=== PATIENT | male | born 1950 | race Caucasian/White ===

== ENCOUNTER 2016-06-21 14:49 | Emergency (ER) | payer MEDICARE ==
[~2016-06-21] VITALS: Ht 175.3 cm; Wt 72.6 kg
[~2016-06-21 14:49] MED LIST: AUGMENTIN TAB875 MG ORAL; BENADRYL25 MG ORAL; CLINDAMYCIN HC150 MG ORAL; CLINDAMYCIN HC300 MG ORAL; CYCLOBENZAPRINE10 MG ORAL; FLOMAX0.4 MG ORAL; IBUPROFEN600 MG ORAL; NKM; NORCO 10-325 T1 EACH ORAL; NORCO 5-325 TA1 EAC1 ORAL; NORCO 5-325 TA1 EAC1 PO; NORCO 5-325 TA1 EACH ORAL; NORCO 5-325 TA1 EACH PO; PERMETHRIN60 GM TOPIC; PREDNISONE50 MG ORAL; TRAMADOL HCL50 MG ORAL; TRAMADOL HCL50 MG PO; ULTRAM50 MG PO; VICODIN 5-5001 EACH PO; ZANTAC150 MG ORAL; ZOFRAN ODT4 MG ORAL; ZOFRAN4 M1 ORAL
[2016-06-21] MEDS ORDERED: Morphine Sulfate 4mg/ml Inj IVP ONE (15:15)
[2016-06-21 15:52] VITALS: BP 119/77
[2016-06-21 15:54] LABS: BASOPHILS % (AUTO) 1.6 % (0.0-2.0); EOSINOPHILS % (AUTO) 1.1 % (0.0-3.0); LYMPHOCYTES % (AUTO) 26.3 % (20.0-45.0); MEAN CORPUSCULAR HEMOGLOBIN 33.2 PG (27.0-31.0); MEAN CORPUSCULAR HGB CONC 34.4 G/DL (32.0-36.0); MEAN CORPUSCULAR VOLUME 96 FL (80-99); MEAN PLATELET VOLUME 6.7 FL (6.5-10.1); MONOCYTES % (AUTO) 5.2 % (1.0-10.0); NEUTROPHILS % (AUTO) 65.7 % (45.0-75.0); PLATELET COUNT 223 K/UL (150-450); RED BLOOD COUNT 4.48 M/UL (4.70-6.10); RED CELL DISTRIBUTION WIDTH 11.3 % (11.6-14.8); WHITE BLOOD COUNT 6.1 K/UL (4.8-10.8)
--- NOTE | 2016-06-21 16:02 | Diagnostic Imaging Report ---
Indication: Abdominal pain Technique: Continuous helical transaxial imaging of the abdomen and pelvis was obtained from the lung bases to the pubic symphysis. No intravenous contrast was administered. Coronal 2-D reformats were also obtained. Total Dose length Product (DLP): [address] Dose Index Volume (CTDIvol): 11 mGy Comparison: 09/03/14 Findings: The lung bases are clear. Solid organ evaluation is limited on this study done without contrast material. There are multiple stones within both kidneys without hydronephrosis. Interval enlargement of a left renal cyst that is partially calcified noted and currently measuring 2.2 x 2.8 cm. There is also a 2 cm slightly hypodense mass in nature part of the left kidney. This appears slightly larger than it had appeared on the prior study. The prior study on 09/03/14 was followed up by a contrast-enhanced CT 01/13/15 which probably shows this to represent a cyst. The study also reveals multiple cysts within the left kidney in addition. Arterial vascular consultations are present. Diverticula noted in the colon. No definite diverticulitis. Prostate enlargement noted. Bilateral inguinal hernias are present. The right inguinal hernia again noted to contain part of the appendix which appears normal. No evidence of bowel obstruction, free air or ascites. There is narrowing of intervertebral discs and accompanying endplate osteophyte formation. Hypertrophied facet joints also demonstrated. Impression: No significant change compared to the previous study performed 09/03/14 Multiple bilateral nonobstructive renal calculi. Slight interval larger and of a cystic mass in the left kidney measuring 2.8 x 2.2 cm currently. Interval enlargement of cystic versus solid mass in the left kidney currently measuring 2.0 cm in diameter. (Further workup with contrast CT had been subsequently performed 01/13/15 and this was determined to be cystic). Spondylosis Normal appendix Bilateral inguinal hernias containing fat Prostate hypertrophy Diverticulosis of the colon Atherosclerotic vascular disease The CT scanner at [facility] is accredited by the [employer] and the scans are performed using protocols designed to limit radiation exposure to as low as reasonably achievable to attain images of sufficient resolution adequate for diagnostic evaluation.
[2016-06-21 16:14] LABS: APPEARANCE,URINE CLEAR; KETONES,URINE NEGATIVE (NEGATIVE); LEUKOCYTE ESTERASE ,URINE NEGATIVE (NEGATIVE); NITRITE,URINE NEGATIVE (NEGATIVE); PH,URINE 7 (4.5-8.0); PROTEIN,URINE NEGATIVE (NEGATIVE); UROBILINOGEN,URINE NORMAL MG/DL (0.0-1.0)
[2016-06-21 16:25] LABS: AMORPHOUS SEDIMENT,UR FEW /LPF; BACTERIA,URINE FEW /HPF
[2016-06-21 16:27] LABS: ALANINE AMINOTRANSFERASE 10 U/L (3-41); ALBUMIN/GLOBULIN RATIO 1.7 (1.0-2.7); ANION GAP 14 (5-15); ASPARTATE AMINO TRANSFERASE 21 U/L (5-40); CALCIUM 9.5 mg/dL (8.6-10.2); CARBON DIOXIDE 26 mEQ/L (20-30); CHLORIDE 98 mEQ/L (98-107); CREATININE 1.1 mg/dL (0.7-1.2); GLOMERULAR FILTRATION RATE > 60 mL/min (>60); HEMOLYSIS 5; POTASSIUM 4.1 mEQ/L (3.4-4.9); SODIUM 138 mEQ/L (135-145); TOTAL PROTEIN 7.3 g/dL (6.6-8.7)
--- NOTE | 2016-06-21 17:04 | Emergency Room Report ---
History of Present Illness General Chief Complaint: Pain Source: Patient, Medical Record Present Illness HPI This patient presents with left-sided flank pain radiating to his left groin. He states that the symptoms feel very similar to a previous kidney stone and that he passed last month. He denies nausea or vomiting. He denies fever or chills. He has no other complaints. Allergies: Coded Allergies: KETOROLAC TROMETHAMINE (Verified Allergy, Mild, Hives, 06/08/16) ERYTHROMYCIN BASE (Verified Adverse Reaction, Mild, NAUSEA VOMITING, 06/08) Patient History Past Medical History: GERD Social History: Denies: alcohol use, drug use, smoking Reviewed Nursing Documentation: PMH: Agreed, PSxH: Agreed Nursing Documentation-PMH Past Medical History: No History, Except For Hx Cardiac Problems: No Hx Hypertension: No Hx Pacemaker: No Hx Asthma: No Hx COPD: No Hx Diabetes: No Hx Cancer: No Hx Gastrointestinal Problems: Yes - Kidney Stones, Gastric ulcers Hx Dialysis: No Hx Neurological Problems: No - Spinal stenosis Hx Cerebrovascular Accident: No Hx Seizures: No Review of Systems All Other Systems: negative except mentioned in HPI Physical Exam Vital Signs Date Time Temp Pulse Resp B/P Pulse Ox O2 Delivery O2 Flow Rate FiO2 06/21/16 14:58 97.5 94 16 157/83 100 Room Air Sp02 EP Interpretation: reviewed, normal General Appearance: no apparent distress, alert, GCS 15, non-toxic Head: normocephalic, atraumatic Eyes: bilateral eye PERRL, bilateral eye normal inspection ENT: hearing grossly normal, normal pharynx, no angioedema, normal voice Neck: full range of motion, supple/symm/no masses Respiratory: chest non-tender, lungs clear, normal breath sounds, speaking full sentences Cardiovascular #1: regular rate, rhythm, no edema Gastrointestinal: normal bowel sounds, non tender, soft, non-distended, no guarding, no rebound Rectal: deferred Musculoskeletal: back normal, gait/station normal, normal range of motion, non- tender Neurologic: alert, oriented x3, responsive, motor strength/tone normal, sensory intact, speech normal Psychiatric: judgement/insight normal, memory normal, mood/affect normal, no suicidal/homicidal ideation Skin: normal color, no rash, warm/dry, well hydrated Medical Decision Making Diagnostic Impression: Primary Impression: Flank pain ER Course This patient has a clinical presentation consistent with musculo-skeletal pain. I did go ahead and work up this patient for urolithiasis. He underwent CT abdomen and pelvis and a urinalysis. Both were negative for acute findings. See official report. Laboratory workup was negative to include CBC and CMP. At this time, I did not identify an emergency medical condition. The patient was instructed on supportive home measures. The patient was given return precautions and followup instructions. Labs Test 06/21/16 15:06 06/21/16 15:30 Urine Color Pale yellow Urine Appearance Clear Urine pH 7 (4.5-8.0) Urine Specific [place]den 1.005 (1.005-1.035) Urine Protein Negative (NEGATIVE) Urine Glucose (UA) Negative (NEGATIVE) Urine Ketones Negative (NEGATIVE) Urine Occult Blood 5+ (NEGATIVE) Urine Nitrite Negative (NEGATIVE) Urine Bilirubin Negative (NEGATIVE) Urine Urobilinogen Normal MG/DL (0.0-1.0) Urine Leukocyte Esterase Negative (NEGATIVE) Urine RBC 2-4 /HPF (0 - 0) Urine WBC 5-10 /HPF (0 - 0) Urine Squamous Epithelial Cells None /LPF (NONE/OCC) Urine Amorphous Sediment Few /LPF (NONE) Urine Bacteria Few /HPF (NONE) White Blood Count 6.1 K/UL (4.8-10.8) Red Blood Count 4.48 M/UL (4.70-6.10) Hemoglobin 14.9 G/DL (14.2-18.0) Hematocrit 43.2 % (42.0-52.0) Mean Corpuscular Volume 96 FL (80-99) Mean Corpuscular Hemoglobin 33.2 PG (27.0-31.0) Mean Corpuscular Hemoglobin Concent 34.4 G/DL (32.0-36.0) Red Cell Distribution Width 11.3 % (11.6-14.8) Platelet Count 223 K/UL (150-450) Mean Platelet Volume 6.7 FL (6.5-10.1) Neutrophils (%) (Auto) 65.7 % (45.0-75.0) Lymphocytes (%) (Auto) 26.3 % (20.0-45.0) Monocytes (%) (Auto) 5.2 % (1.0-10.0) Eosinophils (%) (Auto) 1.1 % (0.0-3.0) Basophils (%) (Auto) 1.6 % (0.0-2.0) Sodium Level 138 mEQ/L (135-145) Potassium Level 4.1 mEQ/L (3.4-4.9) Chloride Level 98 mEQ/L (98-107) Carbon Dioxide Level 26 mEQ/L (20-30) Anion Gap 14 (5-15) Blood Urea Nitrogen 14 mg/dL (7-23) Creatinine 1.1 mg/dL (0.7-1.2) Estimat Glomerular Filtration Rate > 60 mL/min (>60) Glucose Level 143 mg/dL (74-106) Calcium Level 9.5 mg/dL (8.6-10.2) Total Bilirubin 1.0 mg/dL (0.0-1.2) Aspartate Amino Transf (AST/SGOT) 21 U/L (5-40) Alanine Aminotransferase (ALT/SGPT) 10 U/L (3-41) Alkaline Phosphatase 78 U/L (40-129) Total Protein 7.3 g/dL (6.6-8.7) Albumin 4.6 g/dL (3.5-5.2) Globulin 2.7 g/dL Albumin/Globulin Ratio 1.7 (1.0-2.7) CT/MRI/US Diagnostic Results CT/MRI/US Diagnostic Results : Imaging Test Ordered: CT abd/pelvis Impression No significant change compared to the previous study performed 09/03/14 Multiple bilateral nonobstructive renal calculi. Slight interval larger and of a cystic mass in the left kidney measuring 2.8 x 2.2 cm currently. Interval enlargement of cystic versus solid mass in the left kidney currently measuring 2.0 cm in diameter. (Further workup with contrast CT had been subsequently performed 01/13/15 and this was determined to be cystic). Spondylosis Normal appendix Bilateral inguinal hernias containing fat Prostate hypertrophy Diverticulosis of the colon Atherosclerotic vascular disease Last Vital Signs Date Time Temp Pulse Resp B/P Pulse Ox O2 Delivery O2 Flow Rate FiO2 06/21/16 15:52 98.0 80 16 119/77 100 Room Air Disposition: HOME, SELF-CARE Condition: Improved Referrals: NOT CHOSEN [facility]/MD,REFERRING (PCP) Patient Instructions: PAIN, Uncertain Cause (Acute) ALEJANDRO MORALEZ D.O. Jun 21, 2016 17:04
[2016-06-21] MEDS ORDERED: TRAMADOL HCL50 MG ORAL (17:05)
[2016-06-21 17:17] VITALS: BP 122/62
== END 2016-06-21 17:17 | disposition home or self-care (01) ==
LOC: EMR 15:27
DX: N20.0 Calculus of kidney (principal); K40.20 Bilateral inguinal hernia, without obstruction or gangrene, not specified as recurrent; M47.9 Spondylosis, unspecified; N40.0 Benign prostatic hyperplasia without lower urinary tract symptoms; K57.90 Diverticulosis of intestine, part unspecified, without perforation or abscess without bleeding; K21.9 Gastro-esophageal reflux disease without esophagitis; Z87.442 Personal history of urinary calculi; Z87.11 Personal history of peptic ulcer disease; Z88.6 Allergy status to analgesic agent; Z88.1 Allergy status to other antibiotic agents
CPT/HCPCS: 36415; 74176; 80053; 81003; 85025; 96361; 96374; 96375; 99284; J2270; J2405

== ENCOUNTER 2016-07-30 12:27 | Emergency (ER) | payer MEDICARE ==
[~2016-07-30] VITALS: Ht 175.3 cm; Wt 72.6 kg
[2016-07-30 12:45] VITALS: BP 143/92
[2016-07-30] MEDS ORDERED: ATORVASTATIN CA10 MG ORAL (12:46)
[2016-07-30] MEDS ORDERED: TYLENOL EXTRA500 MG ORAL (13:21)
[2016-07-30] MEDS ORDERED: TRAMADOL HCL50 MG ORAL (13:26)
[2016-07-30 13:48] VITALS: BP 130/70
--- NOTE | 2016-07-30 14:21 | Emergency Room Report ---
History of Present Illness General Chief Complaint: Upper Extremity Injury Source: Patient Present Illness HPI The patient is a 66-year-old male presenting with left shoulder pain which occurred 5 days prior. Patient states that he was ice-skating and fell onto the shoulder. he states the pain is now 9/10 dull ache it does not radiate from the shoulder. Pain worse with shoulder movement and touch. The patient denies any numbness or tingling and denies prior injury to the shoulder. The patient denies any other symptoms including fever, chills, rash Allergies: Coded Allergies: KETOROLAC TROMETHAMINE (Verified Allergy, Mild, Hives, 06/08/16) ERYTHROMYCIN BASE (Verified Adverse Reaction, Mild, NAUSEA VOMITING, 06/08) Patient History Past Medical History: see triage record Pertinent Family History: none Reviewed Nursing Documentation: PMH: Agreed, PSxH: Agreed Nursing Documentation-PMH Hx Cardiac Problems: No Hx Hypertension: No Hx Pacemaker: No Hx Asthma: No Hx COPD: No Hx Diabetes: No Hx Cancer: No Hx Gastrointestinal Problems: Yes - Kidney Stones, Gastric ulcers Hx Dialysis: No Hx Cerebrovascular Accident: No Hx Seizures: No Review of Systems All Other Systems: negative except mentioned in HPI Physical Exam Vital Signs Date Time Temp Pulse Resp B/P Pulse Ox O2 Delivery O2 Flow Rate FiO2 07/30/16 12:37 97.9 94 16 143/92 100 Room Air Sp02 EP Interpretation: reviewed, normal General Appearance: no apparent distress, alert, GCS 15, non-toxic Head: normocephalic, atraumatic Eyes: bilateral eye PERRL, bilateral eye normal inspection ENT: hearing grossly normal, normal pharynx, no angioedema, normal voice Neck: full range of motion, supple/symm/no masses Musculoskeletal: back normal, gait/station normal, decreased range of motion - decreased AROM of L shoulder, tender - TTP over L lateral shoulder Neurologic: alert, oriented x3, responsive, motor strength/tone normal, sensory intact, speech normal Psychiatric: judgement/insight normal, memory normal, mood/affect normal, no suicidal/homicidal ideation Skin: normal color, no rash, warm/dry, well hydrated, other - echymosis of L lateral shoulder Lymphatic: no adenopathy Procedures Splinting Splinting : Consent: Verbal Location: L shoulder Splint: sling Pre-Proc Neuro Vasc Exam: normal Post-Proc Neuro Vasc Exam: normal Patient Tolerated: Well Complications: None Medical Decision Making PA Attestation Dr. Colin is my supervising physician. Patient management was discussed with my supervising physician Diagnostic Impression: Primary Impression: Contusion of shoulder, left ER Course The patient is a 66-year-old male presenting with left shoulder pain which occurred 5 days prior Ddx considered include but not limited to sprain/strain, fracture, contusion, dislocation, ligament injury PE: vitals WNL.NAD L shoulder: Tenderness to palpation over left lateral deltoid. Overlying ecchymosis. No obvious deformity. SILT. Decreased AROM past 30 degrees of adduction and flexion. No TTP over clavicle. X-ray of the left shoulder unremarkable Patient is placed in a left arm sling This is given Tylenol for pain The patient is discharged home and will follow up with primary care physician. Pt advised he will need MRI if symptoms worsen or persist. ER precautions are given Other X-Ray Diagnostic Results Other X-Ray Diagnostic Results : X-Ray Ordered: L shoulder Date: Jul 30, 2016 Findings: no fractures, no dislocation, no soft tissue swelling Number of Views: 3 PA Scribe Text I am acting as scribe for my supervising physician. My supervising physician's interpretation of the L shoulder xrays are there are no fractures, dislocations or soft tissue swelling. Last Vital Signs Date Time Temp Pulse Resp B/P Pulse Ox O2 Delivery O2 Flow Rate FiO2 07/30/16 13:48 68 16 130/70 98 Room Air 07/30/16 12:45 97.9 Status: improved Disposition: HOME, SELF-CARE Condition: Improved Scripts Tramadol Hcl* (ULTRAM*) 50 Mg Tablet 50 MG ORAL Q6H Y for For Pain, #10 TAB 0 Refills Prov: TERZIAN,HUANG P.A. 07/30/16 Acetaminophen* (TYLENOL EXTRA STRENGTH*) 500 Mg Tablet 500 MG ORAL Q8H Y for Prn Headache/Temp > 101, #30 TAB 0 Refills Prov: TERZIAN,HUANG P.A. 07/30/16 Patient Instructions: Shoulder Pain Additional Instructions: I discussed my findings with the patient. All questions and concerns have been answered. Treatment and medication compliance have been addressed. I advised the patient that they need to follow up with PMD in 3-5 days. Return to ED if pain remains or worsens, numbness or tingling occurs, new rash is noticed, fever is noticed, or if needed for any reason. Patient verbalized understanding of discharge instructions. HUANG BOLAND Jul 30, 2016 14:21
--- NOTE | 2016-08-02 10:49 | Diagnostic Imaging Report ---
Indication: PAIN Technique: 3 views of the left shoulder Comparison: none Findings: The bones are osteoporotic. No acute fractures. No dislocations. Joint spaces are preserved Impression:Osteoporotic change. No acute process
== END 2016-07-30 13:53 | disposition home or self-care (01) ==
LOC: EMR 12:54
DX: S40.012A Contusion of left shoulder, initial encounter (principal); W19.XXXA Unspecified fall, initial encounter; Y93.21 Activity, ice skating; Y92.89 Other specified places as the place of occurrence of the external cause; M81.0 Age-related osteoporosis without current pathological fracture
CPT/HCPCS: 29240; 99284

== ENCOUNTER 2016-09-02 14:43 | Emergency (ER) | payer MEDICARE ==
[~2016-09-02] VITALS: Ht 175.3 cm; Wt 72.6 kg
[~2016-09-02 14:43] MED LIST changes: +ATORVASTATIN CA10 MG ORAL; +TYLENOL EXTRA500 MG ORAL
[2016-09-02 15:57] LABS: BASOPHILS % (AUTO) 1.3 % (0.0-2.0); LYMPHOCYTES % (AUTO) 14.5 % (20.0-45.0); MEAN CORPUSCULAR HEMOGLOBIN 32.2 PG (27.0-31.0); MEAN CORPUSCULAR HGB CONC 33.9 G/DL (32.0-36.0); MEAN CORPUSCULAR VOLUME 95 FL (80-99); MEAN PLATELET VOLUME 6.7 FL (6.5-10.1); MONOCYTES % (AUTO) 6.1 % (1.0-10.0); NEUTROPHILS % (AUTO) 77.1 % (45.0-75.0); PLATELET COUNT 222 K/UL (150-450); RED BLOOD COUNT 4.91 M/UL (4.70-6.10); WHITE BLOOD COUNT 10.3 K/UL (4.8-10.8)
[2016-09-02 16:19] LABS: ALANINE AMINOTRANSFERASE 17 U/L (3-41); ALBUMIN/GLOBULIN RATIO 1.5 (1.0-2.7); ANION GAP 15 (5-15); ASPARTATE AMINO TRANSFERASE 27 U/L (5-40); CALCIUM 9.7 mg/dL (8.6-10.2); CARBON DIOXIDE 27 mEQ/L (20-30); CHLORIDE 99 mEQ/L (98-107); CREATININE 1.2 mg/dL (0.7-1.2); GLOMERULAR FILTRATION RATE > 60 mL/min (>60); HEMOLYSIS 3; POTASSIUM 4.3 mEQ/L (3.4-4.9); SODIUM 141 mEQ/L (135-145); TOTAL PROTEIN 7.3 g/dL (6.6-8.7)
--- NOTE | 2016-09-02 16:33 | Diagnostic Imaging Report ---
Indication: TB screen Comparison: None A single view chest radiograph was obtained. Findings: Cardiomediastinal appearance is within normal limits for age. Pulmonary vascularity is appropriate. Aorta is mildly calcified. The diaphragmatic contour is smooth and costophrenic angles are sharp. No pleural effusions are identified. The bones are osteopenic. Impression: No pleural or parenchymal evidence for tuberculosis. Osteopenia Atherosclerotic vascular disease
[2016-09-02 16:55] LABS: BILIRUBIN,DIRECT 0.1 mg/dL (0.1-0.3)
[2016-09-02 16:57] VITALS: BP 129/77
--- NOTE | 2016-09-02 17:38 | Emergency Room Report ---
History of Present Illness General Chief Complaint: General Complaint Source: Patient, Medical Record Present Illness HPI 66 YOM came to ED for positive PPD test - 15mm - never had TB before. Denies sick contacts, fever/chills, night sweats, weight loss, foreign travel, history of HIV. No complaints. 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 This year was first positive test. Allergies: Coded Allergies: KETOROLAC TROMETHAMINE (Verified Allergy, Mild, Hives, 06/08/16) ERYTHROMYCIN BASE (Verified Adverse Reaction, Mild, NAUSEA VOMITING, 06/08) Patient History Past Medical History: none Past Surgical History: none Pertinent Family History: none Social History: Denies: alcohol use, drug use, smoking Immunizations: UTD Reviewed Nursing Documentation: PMH: Agreed, PSxH: Agreed Nursing Documentation-PMH Hx Cardiac Problems: No Hx Hypertension: No Hx Pacemaker: No Hx Asthma: No Hx COPD: No Hx Diabetes: No Hx Cancer: No Hx Gastrointestinal Problems: Yes - Kidney Stones, Gastric ulcers Hx Dialysis: No Hx Cerebrovascular Accident: No Hx Seizures: No Review of Systems All Other Systems: negative except mentioned in HPI Physical Exam Vital Signs Date Time Temp Pulse Resp B/P Pulse Ox O2 Delivery O2 Flow Rate FiO2 09/02/16 15:11 98.2 93 16 137/82 98 Room Air Sp02 EP Interpretation: reviewed, normal General Appearance: normal inspection, well appearing, no apparent distress, alert, GCS 15, non-toxic Head: normocephalic, atraumatic Eyes: bilateral eye EOMI, bilateral eye PERRL ENT: normal ENT inspection, hearing grossly normal, normal voice Neck: normal inspection, full range of motion, supple, no bony tend Respiratory: normal inspection, lungs clear, normal breath sounds, no respiratory distress, no retraction, no wheezing Cardiovascular #1: regular rate, rhythm, no edema Gastrointestinal: normal inspection, normal bowel sounds, non tender, soft, no guarding, no hernia Genitourinary: no CVA tenderness Musculoskeletal: normal inspection, back normal, normal range of motion, Tj' s Sign negative Neurologic: normal inspection, alert, oriented x3, 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 Afebrile Lungs CTAB No B signs CXR negative for abscess, consolidation CT Chest negative for mass, consolidation, cavitary lesion ?Latent TB Endorsed to Dr Barros for med surg admission in isolation at 538pm Chest X-Ray Diagnostic Results EP Interpretation: Yes Findings: no consolidation, no effusion, no pneumothorax, no acute cardiopulmonary disease Number of Views: 1 Reevaluation Time: 18:34 Last Vital Signs Date Time Temp Pulse Resp B/P Pulse Ox O2 Delivery O2 Flow Rate FiO2 09/02/16 16:57 97.6 71 16 129/77 98 Room Air Status: improved Reevaluation Impression Labs: No leuks CXR negative CT Chest negative for PNA, cavitary lesion, TB Spoke with Dr Barros Recommends DC with followup in his office to discuss tx for latent TB Patient advised not to work until cleared by PMD Disposition: HOME, SELF-CARE Condition: Improved Referrals: NOT CHOSEN [facility]/,REFERRING (PCP) NHUNG BOYD M.D. Sep 02, 2016 17:38
[2016-09-02 18:52] VITALS: BP 154/88
--- NOTE | 2016-09-03 08:30 | Diagnostic Imaging Report ---
Clinical Indication: TB SCREEN, cough Technique: IV administration nonionic contrast. Spiral acquisition obtained through the chest. Multiplanar reconstructions generated. Total dose length product 614 mGycm. CTDIvol(s) 50 mGy Comparison: None Findings: Some linear scarring is seen at the right lung base. This is evident on earlier CTs of the abdomen and pelvis as well Lungs and pleural spaces otherwise clear. No infiltrates, effusions, masses, or congestion , or nodules The heart size is normal. There is minimal anterior wall pericardial thickening versus fluid. No mediastinal or hilar mass or adenopathy. The included portions of the thyroid are unremarkable. No axillary or chest supraclavicular or chest wall mass or adenopathy. The bones are unremarkable except for mild thoracolumbar scoliotic deformity. The included upper abdominal viscera demonstrate bilateral renal calculi and at least 2 left renal cysts. A subcentimeter low-attenuation lesion is seen within segment 7 of the liver, too small to characterize Impression: No acute process Minimal right basilar parenchymal scarring Minimal anterior wall pericardial thickening versus fluid Mild scoliosis Incidental finding low-attenuation lesion segment 7 of the liver, too small to characterize, most likely benign simple cyst or bile hamartomas, also demonstrated on prior study of January 2015 and unchanged. No further followup needed Incidental findings of bilateral renal calculi and left renal cysts, also described on previous abdomen pelvis CT studies This agrees with the preliminary interpretation provided overnight by Dr. Brewer The CT scanner at [facility] is accredited by the [employer] and the scans are performed using protocols designed to limit radiation exposure to as low as reasonably achievable to attain images of sufficient resolution adequate for diagnostic evaluation.
== END 2016-09-02 18:54 | disposition home or self-care (01) ==
LOC: ENRESERVTM → ENRESERVDT → EMR 15:48 → EDBEDREQ 16:11 → CANBEDREQ 18:36 → EMR 18:54
DX: R76.11 Nonspecific reaction to tuberculin skin test without active tuberculosis (principal); Z87.442 Personal history of urinary calculi; Z87.19 Personal history of other diseases of the digestive system
CPT/HCPCS: 36415; 71010; 71260; 80053; 82248; 85025; 99284; Q9967

== ENCOUNTER 2016-09-15 20:36 | Emergency (ER) | payer MEDICARE ==
[~2016-09-15] VITALS: Ht 175.3 cm; Wt 72.6 kg
[2016-09-15] MEDS ORDERED: ATORVASTATIN CA10 MG ORAL (20:54)
[2016-09-15] MEDS ORDERED: ALUMINUM H320 MG/5 M PO (21:28)
--- NOTE | 2016-09-15 21:31 | Emergency Room Report ---
History of Present Illness General Chief Complaint: Pain Source: Patient, Medical Record Present Illness HPI Patient is a 66-year-old male who presented after having increased left-sided abdominal pain. Patient gradual onset of symptoms. Patient had previous history of inguinal hernia which he says was popping out while he was race walking earlier in the morning. The patient any vomiting. He denied diarrhea. He denies severe pain. Patient denied any black or bloody stools. He denied any fever. The patient states he's had a previous CT approximately 2 weeks ago. Allergies: Coded Allergies: KETOROLAC TROMETHAMINE (Verified Allergy, Mild, Hives, 06/08/16) ERYTHROMYCIN BASE (Verified Adverse Reaction, Mild, NAUSEA VOMITING, 06/08) Patient History Past Medical History: see triage record Reviewed Nursing Documentation: PMH: Agreed, PSxH: Agreed Nursing Documentation-PMH Hx Cardiac Problems: No Hx Hypertension: No Hx Pacemaker: No Hx Asthma: No Hx COPD: No Hx Diabetes: No Hx Cancer: No Hx Gastrointestinal Problems: Yes - Kidney Stones, Gastric ulcers Hx Dialysis: No Hx Cerebrovascular Accident: No - Hernia surgery in 2013 on right side Hx Seizures: No Review of Systems All Other Systems: negative except mentioned in HPI Physical Exam Vital Signs Date Time Temp Pulse Resp B/P Pulse Ox O2 Delivery O2 Flow Rate FiO2 09/15/16 20:51 98.2 117 14 118/85 99 Room Air General Appearance: well appearing, no apparent distress, alert, GCS 15 Head: normocephalic, atraumatic ENT: hearing grossly normal, normal voice Neck: full range of motion, supple Respiratory: no respiratory distress, speaking full sentences Cardiovascular #1: normal inspection, normal peripheral pulses Gastrointestinal: normal inspection, non tender, soft, no mass, hernia - easily reducible Musculoskeletal: normal inspection, back normal, digits/nails normal, gait/ station normal, normal range of motion, no calf tenderness Neurologic: normal inspection, alert, oriented x3, responsive, 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 Differential diagnoses included ischemic bowel, appendicitis, perforated viscus, abdominal aortic aneurysm, inferior myocardial infarction, viral gastroenteritis. The patient has a benign exam. A left inguinal hernia was easily reducible.The patient is advised to follow up with primary care doctor in 1-2 days. Patient is advised to return if any worsening condition or if any changes in status that are concerning. Last Vital Signs Date Time Temp Pulse Resp B/P Pulse Ox O2 Delivery O2 Flow Rate FiO2 09/15/16 20:51 98.2 117 14 118/85 99 Room Air Status: improved Disposition: HOME, SELF-CARE Condition: Stable Scripts Aluminum Hydroxide (ALUMINUM HYDROXIDE) 320 Mg/5 Ml Oral.susp 320 MG PO NEEDED for For Pain, #100 ML Prov: Yoel Colin 09/15/16 Patient Instructions: Inguinal Hernia, Adult Yoel Colin Sep 15, 2016 21:31
[2016-09-15 21:33] VITALS: BP 123/87
[2016-09-15 21:37] VITALS: BP 123/87
== END 2016-09-15 21:38 | disposition home or self-care (01) ==
LOC: EMR 21:36
DX: K40.90 Unilateral inguinal hernia, without obstruction or gangrene, not specified as recurrent (principal); Z87.442 Personal history of urinary calculi; Z88.8 Allergy status to other drugs, medicaments and biological substances
CPT/HCPCS: 99283

== ENCOUNTER 2016-10-09 07:08 | Emergency (ER) | payer MEDICARE ==
[~2016-10-09] VITALS: Ht 175.3 cm; Wt 72.6 kg
[~2016-10-09 07:08] MED LIST changes: +ALUMINUM H320 MG/5 M PO
[2016-10-09 07:23] VITALS: BP 144/86
[2016-10-09] MEDS ORDERED: Morphine Sulfate 4mg/ml Inj IVP ONE (07:30)
--- NOTE | 2016-10-09 07:39 | Emergency Room Report ---
History of Present Illness General Chief Complaint: Abdominal Pain Source: Patient Present Illness HPI 66YOM walk-in with bilateral lower abd pain. States "hernia pain." States bilateral inguinal hernia. Has outpatient GenSurg appt scheduled October 21 at [facility]. "Couldnt wait." Severe pain today with nausea but without vomiting, diarrhea, fever/chills. has had previous hernia repair. Allergies: Coded Allergies: KETOROLAC TROMETHAMINE (Verified Allergy, Mild, Hives, 06/08/16) ERYTHROMYCIN BASE (Verified Adverse Reaction, Mild, NAUSEA VOMITING, 06/08) Patient History Past Medical History: none Past Surgical History: other - hernia repair Pertinent Family History: none Social History: Denies: alcohol use, drug use, smoking Immunizations: UTD Reviewed Nursing Documentation: PMH: Agreed, PSxH: Agreed Nursing Documentation-PMH Past Medical History: No History, Except For Hx Cardiac Problems: No Hx Hypertension: No Hx Pacemaker: No Hx Asthma: No Hx COPD: No Hx Diabetes: No Hx Cancer: No Hx Gastrointestinal Problems: Yes - Pacreastic surgery, kidney Stones, gastric ulcers Hx Dialysis: No Hx Cerebrovascular Accident: No - Hernia surgery in 2013 on right side Hx Seizures: No Review of Systems All Other Systems: negative except mentioned in HPI Physical Exam Vital Signs Date Time Temp Pulse Resp B/P Pulse Ox O2 Delivery O2 Flow Rate FiO2 10/09/16 07:13 98.2 98 16 144/86 100 Room Air Sp02 EP Interpretation: reviewed, normal General Appearance: normal inspection, well appearing, no apparent distress, alert, GCS 15, non-toxic Head: normocephalic, atraumatic Eyes: bilateral eye EOMI, bilateral eye PERRL ENT: normal ENT inspection, hearing grossly normal, normal voice Neck: normal inspection, full range of motion, supple, no bony tend Respiratory: normal inspection, lungs clear, normal breath sounds, no respiratory distress, no retraction, no wheezing Cardiovascular #1: regular rate, rhythm, no edema Gastrointestinal: normal inspection, normal bowel sounds, non tender, soft, no guarding, no hernia, other - Bilateral easily reducible inguinal hernias. No overlying erythema or infection. 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 VSS. Afebrile. Likely not strangulated/incarcerated Labs: No leuks. H&H stable. Lactate WNL. UA negative for UTI CTAP: no acute process. No strangulation or incarcerated hernia. Advised patient to complete outpatient [facility] appt for inguinal hernias DC home Last Vital Signs Date Time Temp Pulse Resp B/P Pulse Ox O2 Delivery O2 Flow Rate FiO2 10/09/16 07:23 98.2 79 16 144/86 100 Room Air Status: improved Disposition: HOME, SELF-CARE NHUNG BOYD M.D. Oct 09, 2016 07:39
[2016-10-09 07:55] LABS: BASOPHILS % (AUTO) 0.8 % (0.0-2.0); LYMPHOCYTES % (AUTO) 22.9 % (20.0-45.0); MEAN CORPUSCULAR HEMOGLOBIN 32.3 PG (27.0-31.0); MEAN CORPUSCULAR HGB CONC 33.6 G/DL (32.0-36.0); MEAN CORPUSCULAR VOLUME 96 FL (80-99); MEAN PLATELET VOLUME 6.8 FL (6.5-10.1); MONOCYTES % (AUTO) 8.9 % (1.0-10.0); NEUTROPHILS % (AUTO) 66.4 % (45.0-75.0); PLATELET COUNT 212 K/UL (150-450); RED BLOOD COUNT 4.66 M/UL (4.70-6.10); RED CELL DISTRIBUTION WIDTH 11.5 % (11.6-14.8); WHITE BLOOD COUNT 7.1 K/UL (4.8-10.8)
[2016-10-09 08:02] LABS: PROTHROMBIN TIME 10.4 SEC (9.30-11.50)
[2016-10-09 08:05] LABS: ALANINE AMINOTRANSFERASE 12 U/L (3-41); ALBUMIN/GLOBULIN RATIO 1.7 (1.0-2.7); ANION GAP 14 (5-15); ASPARTATE AMINO TRANSFERASE 19 U/L (5-40); CALCIUM 9.4 mg/dL (8.6-10.2); CARBON DIOXIDE 27 mEQ/L (20-30); CHLORIDE 101 mEQ/L (98-107); GLOMERULAR FILTRATION RATE > 60 mL/min (>60); HEMOLYSIS 3; LIPASE 74 U/L (< 60); SODIUM 142 mEQ/L (135-145); TOTAL PROTEIN 7.3 g/dL (6.6-8.7)
[2016-10-09 08:19] LABS: BILIRUBIN,DIRECT 0.2 mg/dL (0.1-0.3)
[2016-10-09 08:34] VITALS: BP 128/82
[2016-10-09 08:41] LABS: APPEARANCE,URINE CLEAR; KETONES,URINE NEGATIVE (NEGATIVE); LEUKOCYTE ESTERASE ,URINE NEGATIVE (NEGATIVE); NITRITE,URINE NEGATIVE (NEGATIVE); PH,URINE 6.5 (4.5-8.0); PROTEIN,URINE NEGATIVE (NEGATIVE); UROBILINOGEN,URINE NORMAL MG/DL (0.0-1.0)
[2016-10-09 10:57] VITALS: BP 112/74
[2016-10-09 11:04] VITALS: BP 112/74
== END 2016-10-09 11:06 | disposition home or self-care (01) ==
LOC: EMR 07:52
DX: K40.20 Bilateral inguinal hernia, without obstruction or gangrene, not specified as recurrent (principal); Z87.442 Personal history of urinary calculi; Z98.890 Other specified postprocedural states
CPT/HCPCS: 36415; 74177; 80053; 81003; 82248; 83605; 83690; 85025; 85610; 85730; 86850; 86900; 86901; 96374; 96375; 99284; J2270; J2405; Q9967

== ENCOUNTER 2016-11-30 10:17 | Emergency (ER) | payer MEDICARE ==
[~2016-11-30] VITALS: Ht 175.3 cm; Wt 72.6 kg
[2016-11-30 10:52] VITALS: BP 142/92
--- NOTE | 2016-11-30 11:05 | Emergency Room Report ---
History of Present Illness General Chief Complaint: Upper Extremity Injury Source: Medical Record Present Illness HPI Patient was out of the room to toilet when I went to examine him. Apparently he fell on Tuesday and had wrist pain. 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 Chest X-Ray Diagnostic Results Chest X-Ray Ordered: No Last Vital Signs Date Time Temp Pulse Resp B/P Pulse Ox O2 Delivery O2 Flow Rate FiO2 11/30/16 11:00 97.9 16 142/92 99 Room Air 11/30/16 10:18 104 Status: unchanged Disposition: LEFT W/OUT BEING SEEN Condition: Unknown Referrals: NOT CHOSEN IPA/,REFERRING (PCP) Harry Fields M.D. Nov 30, 2016 11:05
== END 2016-11-30 11:00 | disposition left against medical advice (07) ==
LOC: EMR 10:45
DX: M25.531 Pain in right wrist (principal); Z53.21 Procedure and treatment not carried out due to patient leaving prior to being seen by health care provider
CPT/HCPCS: 99281

== ENCOUNTER 2017-02-07 06:58 | Emergency (ER) | payer MEDICARE ==
[~2017-02-07] VITALS: Ht 175.3 cm; Wt 72.6 kg
--- NOTE | 2017-02-07 07:41 | Emergency Room Report ---
History of Present Illness General Chief Complaint: Lower Extremity Injury Source: Patient Present Illness HPI Patient reports complaints of pain to left knee Patient reports that he was speed walking on Tuesday Since then he is having pain with ambulation Especially with bearing weight He had noticed a popping sound on 2 different occasions on Tuesday involving the left knee Denies any other obvious fall or trauma otherwise Denies any pelvic pain Allergies: Coded Allergies: KETOROLAC TROMETHAMINE (Verified Allergy, Mild, Hives, 06/08/16) ERYTHROMYCIN BASE (Verified Adverse Reaction, Mild, NAUSEA VOMITING, 06/08) Patient History Past Medical History: see triage record Pertinent Family History: none Reviewed Nursing Documentation: PMH: Agreed, PSxH: Agreed Nursing Documentation-PMH Hx Cardiac Problems: No Hx Hypertension: No Hx Pacemaker: No Hx Asthma: No Hx COPD: No Hx Diabetes: No Hx Cancer: No Hx Gastrointestinal Problems: Yes - Inguinal hernia; pancreatitis Hx Dialysis: No Hx Seizures: No Review of Systems All Other Systems: negative except mentioned in HPI Physical Exam Vital Signs Date Time Temp Pulse Resp B/P (MAP) Pulse Ox O2 Delivery O2 Flow Rate FiO2 02/07/17 07:04 97 16 135/83 100 Room Air Sp02 EP Interpretation: reviewed, normal General Appearance: well appearing, no apparent distress Head: normocephalic, atraumatic Eyes: bilateral eye PERRL, bilateral eye EOMI ENT: normal pharynx Neck: full range of motion, supple Respiratory: lungs clear Musculoskeletal: other - Patient had some discomfort on palpation medially on the knee on the left side, no obvious effusion, sensory intact, patient able to flex and extend at the knee Neurologic: alert, oriented x3 Skin: no rash Lymphatic: no adenopathy Medical Decision Making Diagnostic Impression: Primary Impression: Knee pain, acute ER Course Multiple differentials considered Including but not limited to ligamental, orthopedic pathology Initially asking the patient regarding intervention with respect to this acute pain patient reported taking few Tylenols I did discuss with him however on review of CURES the patient has multiple prescriptions filled by different providers, with this he reports that he is going to be seen his orthopedic physician and further pain control and management was refer to primary physician Please note that initially the patient had x-ray ordered However he did want to leave without obtaining imaging Last Vital Signs Date Time Temp Pulse Resp B/P (MAP) Pulse Ox O2 Delivery O2 Flow Rate FiO2 02/07/17 07:04 97 16 135/83 100 Room Air Status: unchanged Disposition: HOME, SELF-CARE Condition: Stable Additional Instructions: Patient is provided with the discharge instructions notified to follow up with primary doctor in the next 2-3 days otherwise return to the er with any worsening symptoms. Please note that this report is being documented using DRAGON technology. This can lead to erroneous entry secondary to incorrect interpretation by the dictating instrument. SUZY ODONNELL D.O. Feb 07, 2017 07:41
[2017-02-07 08:05] VITALS: BP 135/83
== END 2017-02-07 08:05 | disposition home or self-care (01) ==
LOC: EMR 07:58
DX: M25.562 Pain in left knee (principal); Z88.8 Allergy status to other drugs, medicaments and biological substances
CPT/HCPCS: 99282

== ENCOUNTER 2018-01-09 04:45 | Emergency (ER) | payer MEDICARE ==
[~2018-01-09] VITALS: Ht 175.3 cm; Wt 72.6 kg
[2018-01-09 05:00] VITALS: BP_SYST 120; BP_SYST 151; BP_DIAS 80; BP_DIAS 91
--- NOTE | 2018-01-09 05:05 | Emergency Room Report ---
History of Present Illness General Chief Complaint: Male Urogenital Problems Source: Patient, Medical Record Present Illness HPI Is a 67-year-old male who said he had a history of kidney stone. He presents with chief complaint of kidney stone. This history is through the nursing note because patient never come into the ER. He said he has a history of kidney stone and was at [facility] last month. He then asked the triage nurse who was the doctor on and she told him it was me. When she called him to his room, he said he forgot his wallet in his car. He went to his car never came back to the ER. I did not get to see this patient. He has been here numerous times. I was able access the records at [facility] also. He was there several time for kidney stone complaint. He was there on November 24. CT scan show stone in the bladder. There were no ureteral stone. On the [facility] system, he has numerous prescription from different doctors for Ultram. He gets about 4-5 prescription per month from different doctors and at different pharmacies. Allergies: Coded Allergies: KETOROLAC TROMETHAMINE (Verified Allergy, Mild, Hives, 06/08/16) ERYTHROMYCIN BASE (Verified Adverse Reaction, Mild, NAUSEA VOMITING, ) Uncoded Allergies: NSAIDS (Allergy, Unknown, 01/09/18) peptic ulcer Patient History Past Medical History: see triage record, old chart reviewed Past Surgical History: other Pertinent Family History: none Social History: Denies: smoking Immunizations: other Reviewed Nursing Documentation: PMH: Agreed; PSxH: Agreed Nursing Documentation-PMH Past Medical History: No History, Except For Hx Cardiac Problems: No Hx Hypertension: No Hx Pacemaker: No Hx Asthma: No Hx COPD: No Hx Diabetes: No Hx Cancer: No Hx Gastrointestinal Problems: Yes - Inguinal hernia; pancreatitis Hx Dialysis: No Hx Seizures: No Physical Exam Vital Signs Date Time Temp Pulse Resp B/P (MAP) Pulse Ox O2 Delivery O2 Flow Rate FiO2 01/09/18 04:46 97.4 100 16 151/91 99 Room Air 97.3 Medical Decision Making Diagnostic Impression: Primary Impression: Abdominal pain Last Vital Signs Date Time Temp Pulse Resp B/P (MAP) Pulse Ox O2 Delivery O2 Flow Rate FiO2 01/09/18 04:46 97.4 100 16 151/91 99 Room Air 97.3 Status: unchanged Disposition: LEFT W/OUT BEING SEEN VARUN JACOME M.D. Jan 09, 2018 05:05
== END 2018-01-09 05:20 | disposition left against medical advice (07) ==
LOC: EMR 05:16
DX: R10.9 Unspecified abdominal pain (principal); Z53.21 Procedure and treatment not carried out due to patient leaving prior to being seen by health care provider
CPT/HCPCS: 99281

== ENCOUNTER 2018-01-15 04:25 | Emergency (ER) | payer MEDICARE ==
[~2018-01-15] VITALS: Ht 175.3 cm; Wt 72.6 kg
--- NOTE | 2018-01-15 05:11 | Emergency Room Report ---
History of Present Illness General Chief Complaint: Back Pain-No Injury Present Illness HPI This patient c/o left kidney stone pain. He has papers from [facility] that stated he had a CT and dx. left renal colic. He was treated with Toradol there. He has a name of a urologist to see. He came here five days ago for same but did not wait for doctor to see him. For today he c/o continued pain left side for days. He says he cannot take nsaids, Toradol. He denies abd pain, vomiting, change in bladder/bowel, fever, instrumentation. Allergies: Coded Allergies: KETOROLAC TROMETHAMINE (Verified Allergy, Mild, Hives, 06/08/16) ERYTHROMYCIN BASE (Verified Adverse Reaction, Mild, NAUSEA VOMITING, ) Uncoded Allergies: NSAIDS (Allergy, Unknown, 01/09/18) peptic ulcer Nursing Documentation-[facility] Hx Cardiac Problems: No Hx Hypertension: No Hx Pacemaker: No Hx Asthma: No Hx COPD: No Hx Diabetes: No Hx Cancer: No Hx Gastrointestinal Problems: Yes - Inguinal hernia; pancreatitis,KIDNEY STONE Hx Dialysis: No Hx Seizures: No Review of Systems Constitutional: Denies: fever Eye: Denies: acuity changes Respiratory: Denies: cough, shortness of breath Cardiovascular: Denies: chest pain Gastrointestinal: Denies: nausea, vomiting Musculoskeletal: Reports: back pain Skin: Denies: rash Neurological: Denies: headache Physical Exam Vital Signs Date Time Temp Pulse Resp B/P (MAP) Pulse Ox O2 Delivery O2 Flow Rate FiO2 01/15/18 04:28 97.6 110 18 130/82 100 Room Air 97.5 General Appearance: well appearing, no apparent distress Head: normocephalic, atraumatic ENT: hearing grossly normal, normal voice Neck: full range of motion, supple Respiratory: no respiratory distress, speaking full sentences Musculoskeletal: no calf tenderness Neurologic: alert, normal gait Psychiatric: mood/affect normal Skin: no rash Medical Decision Making Diagnostic Impression: Primary Impression: Kidney stones Additional Impression: Narcotic habituation, continuous ER Course I offered this patient Toradol but he did not want to take due to getting hives in the past (according to him.) I believe this patient is narcotic-shopping. Cures shows six Rx. past month and 25 scripts 4.5 months. Last Vital Signs Date Time Temp Pulse Resp B/P (MAP) Pulse Ox O2 Delivery O2 Flow Rate FiO2 01/15/18 04:28 97.6 110 18 130/82 100 Room Air 97.5 Disposition: HOME, SELF-CARE Condition: Stable Referrals: NON PHYSICIAN (PCP) Patient Instructions: Renal Colic, [id number] Emil Saxena M.D. Jan 15, 2018 05:11
[2018-01-15 05:21] VITALS: BP 130/82
== END 2018-01-15 05:22 | disposition home or self-care (01) ==
LOC: EMR 04:47
DX: N20.0 Calculus of kidney (principal)
CPT/HCPCS: 99282

== ENCOUNTER 2018-06-13 07:01 | Inpatient (IN) | payer MEDICARE ==
[2018-06-13] VITALS (7 sets, daily range): BP systolic 135–152; BP diastolic 70–84
[~2018-06-13] VITALS: Ht 180.3 cm; Wt 66.2 kg
--- NOTE | 2018-06-13 07:01 | NUR ---
ED Nurse Note: PT BROUGHT IN BY AMBULANCE FROM HOME. AOX4. PT C/O CHEST PRESSURE AFTER MULTIPLE EPISODES OF NAUSEA AND VOMITING X 3 DAYS AGO. PT C/O ONGOING DIARRHEA WELL X 3 DAYS AGO. PT DENIES ANY PAIN. ACTIVE BOWEL SOUNDS IN ALL QUADRANTS. ABDOMEN DOES NOT APPEAR DISTENDED AND IS NONTENDER TO PALPATION. LAST BM X THIS AM WHICH PT STATES WAS LIQUID.
[2018-06-13 07:23] LABS: BASOPHILS % (AUTO) 0.5 % (0.0-2.0); EOSINOPHILS % (AUTO) 0.8 % (0.0-3.0); HEMOGLOBIN 15.1 G/DL (14.2-18.0); LYMPHOCYTES % (AUTO) 10.6 % (20.0-45.0); MEAN CORPUSCULAR VOLUME 94 FL (80-99); MONOCYTES % (AUTO) 7.2 % (1.0-10.0); NEUTROPHILS % (AUTO) 80.9 % (45.0-75.0); PLATELET COUNT 219 K/UL (150-450); RED BLOOD COUNT 4.57 M/UL (4.70-6.10); RED CELL DISTRIBUTION WIDTH 10.7 % (11.6-14.8); WHITE BLOOD COUNT 7.4 K/UL (4.8-10.8)
--- NOTE | 2018-06-13 07:26 | Emergency Room Report ---
History of Present Illness General Chief Complaint: Chest Pain Source: Patient Present Illness HPI Patient presents initially with reports of chest pain However reports that initially symptoms started 4 days ago Vomiting Later developing diarrhea patient now still has decreased oral intake reports several episodes of vomiting and diarrhea throughout the day patient also gets burning sensation in the epigastric And pain in the midsternal chest area Denies any fevers or chills Denies any flank pain Denies any recent travel Allergies: Coded Allergies: KETOROLAC TROMETHAMINE (Verified Allergy, Mild, Hives, 06/08/16) AZITHROMYCIN (Unverified Allergy, Unknown, 06/13/18) ERYTHROMYCIN BASE (Verified Adverse Reaction, Mild, NAUSEA VOMITING, ) Uncoded Allergies: NSAIDS (Allergy, Unknown, 01/09/18) peptic ulcer Patient History Past Medical History: see triage record Pertinent Family History: none Reviewed Nursing Documentation: PMH: Agreed; PSxH: Agreed Nursing Documentation-PMH Past Medical History: No Stated History Hx Cardiac Problems: No Hx Hypertension: No Hx Pacemaker: No Hx Asthma: No Hx COPD: No Hx Diabetes: No Hx Cancer: No Hx Gastrointestinal Problems: Yes - Inguinal hernia; pancreatitis,KIDNEY STONE Hx Dialysis: No Hx Seizures: No Review of Systems All Other Systems: negative except mentioned in HPI Physical Exam Vital Signs Date Time Temp Pulse Resp B/P (MAP) Pulse Ox O2 Delivery O2 Flow Rate FiO2 06/13/18 06:55 98.1 87 16 174/96 99 Room Air Sp02 EP Interpretation: reviewed, normal General Appearance: well appearing, no apparent distress Head: normocephalic, atraumatic Eyes: bilateral eye PERRL, bilateral eye EOMI ENT: hearing grossly normal, TMs + canals normal, uvula midline, dry mucus membranes Neck: full range of motion, supple, no meningismus, no bony tend Respiratory: lungs clear, normal breath sounds, no rhonchi, no respiratory distress, no retraction, no accessory muscle use Cardiovascular #1: normal peripheral pulses, regular rate, rhythm, no edema, no gallop, no JVD, no murmur Gastrointestinal: normal bowel sounds, non tender, soft, no organomegaly, non- distended, no guarding, no pulsatile mass, no rebound, other - small bilateral inguinal hernias, soft abdomen Genitourinary: no CVA tenderness Musculoskeletal: normal inspection Neurologic: oriented x3, responsive, compensation coordinator III-XII nml as tested, motor strength/ tone normal, sensory intact Psychiatric: mood/affect normal Skin: normal color, no rash, warm/dry, palpation normal Lymphatic: normal inspection, no adenopathy Medical Decision Making Diagnostic Impression: Primary Impression: ACS (acute coronary syndrome) Additional Impressions: Vomiting Dehydration ER Course Patient is a fairly complex patient with multiple differential to consideration including but not limited to cardiac cardiopulmonary and vascular emergencies Given the patient's vomiting CT imaging was also obtained with consideration of abdominal pathology Blood work reveals normal troponin level EKG does not show any obvious acute pathology CT imaging shows multiple findings including renal calculi patient admitted for further inpatient care Labs Test 06/13/18 07:12 White Blood Count 7.4 K/UL (4.8-10.8) Red Blood Count 4.57 M/UL (4.70-6.10) Hemoglobin 15.1 G/DL (14.2-18.0) Hematocrit 43.0 % (42.0-52.0) Mean Corpuscular Volume 94 FL (80-99) Mean Corpuscular Hemoglobin 33.1 PG (27.0-31.0) Mean Corpuscular Hemoglobin Concent 35.1 G/DL (32.0-36.0) Red Cell Distribution Width 10.7 % (11.6-14.8) Platelet Count 219 K/UL (150-450) Mean Platelet Volume 6.7 FL (6.5-10.1) Neutrophils (%) (Auto) 80.9 % (45.0-75.0) Lymphocytes (%) (Auto) 10.6 % (20.0-45.0) Monocytes (%) (Auto) 7.2 % (1.0-10.0) Eosinophils (%) (Auto) 0.8 % (0.0-3.0) Basophils (%) (Auto) 0.5 % (0.0-2.0) Sodium Level 138 MMOL/L (136-145) Potassium Level 3.3 MMOL/L (3.5-5.1) Chloride Level 99 MMOL/L (98-107) Carbon Dioxide Level 27 MMOL/L (21-32) Anion Gap 12 mmol/L (5-15) Blood Urea Nitrogen 26 mg/dL (7-18) Creatinine 1.3 MG/DL (0.55-1.30) Estimat Glomerular Filtration Rate 54.6 mL/min (>60) Glucose Level 169 MG/DL (74-106) Calcium Level 9.3 MG/DL (8.5-10.1) Total Bilirubin 2.7 MG/DL (0.2-1.0) Direct Bilirubin 0.4 MG/DL (0.0-0.3) Aspartate Amino Transf (AST/SGOT) 37 U/L (15-37) Alanine Aminotransferase (ALT/SGPT) 27 U/L (12-78) Alkaline Phosphatase 80 U/L (46-116) Total Creatine Kinase 320 U/L (26-308) Creatine Kinase MB 2.4 NG/ML (0.0-3.6) Creatine Kinase MB Relative Index 0.7 Troponin I 0.017 ng/mL (0.000-0.056) Total Protein 7.7 G/DL (6.4-8.2) Albumin 4.3 G/DL (3.4-5.0) Globulin 3.4 g/dL Albumin/Globulin Ratio 1.3 (1.0-2.7) Lipase 217 U/L (73-393) EKG Diagnostic Results Rate: normal Rhythm: NSR ST Segments: no acute changes Rhythm Strip Diag. Results EP Interpretation: yes Rate: 66 Rhythm: NSR, no PVC's, no ectopy Chest X-Ray Diagnostic Results Chest X-Ray Diagnostic Results : Chest X-Ray Ordered: Yes # of Views/Limited/Complete: 1 View Indication: Chest Pain EP Interpretation: Yes Interpretation: no consolidation, no effusion, no pneumothorax Impression: No acute disease Electronically Signed by: Fadumo Sweeney, CT/MRI/US Diagnostic Results CT/MRI/US Diagnostic Results : Impression cT abdomen pelvisIMPRESSION: 1. Bilateral nonobstructive nephrolithiasis, with at least 6 stones in the right kidney and 3 stones in the left kidney, with the largest stone measuring 4 mm in the left mid kidney. 2. At least 4 separate radiodense stones layering within the urinary bladder lumen, largest measuring 6.5 mm. 3. Nonspecific distention of the common bile duct, measuring up to 8 mm in diameter. No visible obstructing stones or masses. No calcified gallstones. No intrahepatic biliary dilatation. If there is continued concern, this can be further evaluated with MRCP. 4. Small bilateral inguinal hernias. Right inguinal hernia partially contains small bowel without evidence of obstruction. Left inguinal hernia is fat-containing only. 5. Prominent fatty density in the colonic lumen adjacent to the ileocecal junction, nonspecific. This may represent a small lipoma or ingested fatty contents. 6. Scattered simple appearing left renal cortical cysts, largest measuring 2.7 cm in the left upper renal pole. Last Vital Signs Date Time Temp Pulse Resp B/P (MAP) Pulse Ox O2 Delivery O2 Flow Rate FiO2 06/13/18 07:01 79 16 Room Air 06/13/18 07:01 98.3 152/71 99 Status: improved Disposition: ADMITTED INPATIENT Condition: Serious Referrals: NOT CHOSEN IPA/,REFERRING (PCP) Fadumo Sweeney DO Jun 13, 2018 07:26
[2018-06-13] MEDS ORDERED: Isovue-300 100ml vial INJ PRN (07:30)
[2018-06-13] MEDS ORDERED: NKM (07:40)
[2018-06-13 07:46] LABS: ANION GAP 12 mmol/L (5-15); BLOOD UREA NITROGEN 26 mg/dL (7-18); CALCIUM 9.3 MG/DL (8.5-10.1); CARBON DIOXIDE 27 MMOL/L (21-32); CHLORIDE 99 MMOL/L (98-107); CREATININE 1.3 MG/DL (0.55-1.30); POTASSIUM 3.3 MMOL/L (3.5-5.1); SODIUM 138 MMOL/L (136-145)
[2018-06-13 07:56] LABS: ALANINE AMINOTRANSFERASE 27 U/L (12-78); ALBUMIN 4.3 G/DL (3.4-5.0); ALBUMIN/GLOBULIN RATIO 1.3 (1.0-2.7); ALKALINE PHOSPHATASE 80 U/L (46-116); ASPARTATE AMINO TRANSFERASE 37 U/L (15-37); BILIRUBIN,TOTAL 2.7 MG/DL (0.2-1.0); CKMB 2.4 NG/ML (0.0-3.6); CREATINE KINASE 320 U/L (26-308)
[2018-06-13 07:58] LABS: BILIRUBIN,DIRECT 0.4 MG/DL (0.0-0.3)
[2018-06-13] MEDS ORDERED: Promethazine HCl 25 MG in NS 55 ML IVPB ONE (08:45)
--- NOTE | 2018-06-13 10:10 | NUR ---
ED Nurse Note: TELE UNIT CALLED FOR PT TRANSFER. REPORT GIVEN TO ADRIANA HENAO. PT TAKEN UP TO TELE UNIT VIA GURNEY WITH ALL BELONGINGS ON [employer]STIGATOR CUST[employer]S ACCOMPANIED BY PRIMARY RN AND EMT.
--- NOTE | 2018-06-13 10:26 | NUR ---
ADMISSION TO TELE NOTES: Pt just admitted to unit, IV LT AC 20, Pt on room air, pt reports nausea and vomiting, Pt Ox4 calm and cooperative, skin intact, pt is able to ambulate, equipment monitor phototypesetting on, pt denies chest pain, pt came in with belongings all checked with patient and has $7 on him, vitals present as BP150/98 Hr 74 O2 98, respirations 20, Labs potassium slightly low most likely due to vomiting. Md Goldman notified of admission. Call light next to pt, bed alarm on, bed in low position, no s/s of distress or sob noted. will continue to do assessment of patient.
--- NOTE | 2018-06-13 10:40 | Diagnostic Imaging Report ---
EXAM: CT Abdomen and Pelvis With Intravenous Contrast CLINICAL HISTORY: VOMITING TECHNIQUE: Axial computed tomography images of the abdomen and pelvis with intravenous contrast. CTDI is 10.38 mGy and DLP is 533 mGy-cm. One or more of the following dose reduction techniques were used: automated exposure control, adjustment of the mA and/or kV according to patient size, use of iterative reconstruction technique. COMPARISON: No relevant prior studies available. FINDINGS: Lung bases: Unremarkable. No mass. No consolidation. ABDOMEN: Liver: Unremarkable. No mass. Gallbladder and bile ducts: Nonspecific distention of the common bile duct, measuring up to 8 mm in diameter. No visible obstructing stones or masses. No calcified gallstones. No intrahepatic biliary dilatation. Pancreas: Unremarkable. No mass. No ductal dilation. Spleen: Unremarkable. No splenomegaly. Adrenals: Unremarkable. No mass. Kidneys and ureters: Bilateral nonobstructive nephrolithiasis, with at least 6 stones in the right kidney and 3 stones in the left kidney, with the largest stone measuring 4 mm in the left mid kidney. Scattered simple appearing left renal cortical cysts, largest measuring 2.7 cm in the left upper renal pole. Stomach and bowel: Right inguinal hernia partially contains small bowel without evidence of obstruction. Prominent fatty density in the colonic lumen adjacent to the ileocecal junction, nonspecific. This may represent a small lipoma or ingested fatty contents. No mucosal thickening. PELVIS: Appendix: The appendix appears normal. Bladder: At least 4 separate radiodense stones layering within the urinary bladder lumen, largest measuring 6.5 mm. Reproductive: Unremarkable as visualized. ABDOMEN and PELVIS: Intraperitoneal space: Unremarkable. No free air. No significant fluid collection. Bones/joints: S-shaped thoracolumbar scoliotic curvature. Multilevel degenerative changes throughout the visualized spine with disc space loss and endplate osteophytes. No acute fracture. No dislocation. Soft tissues: Small bilateral inguinal hernias. Right inguinal hernia partially contains small bowel without evidence of obstruction. Left inguinal hernia is fat-containing only. Vasculature: Atherosclerotic calcifications throughout the abdominal aorta and its proximal branches. No abnormal dilatation. Lymph nodes: Unremarkable. No enlarged lymph nodes. IMPRESSION: 1. Bilateral nonobstructive nephrolithiasis, with at least 6 stones in the right kidney and 3 stones in the left kidney, with the largest stone measuring 4 mm in the left mid kidney. 2. At least 4 separate radiodense stones layering within the urinary bladder lumen, largest measuring 6.5 mm. 3. Nonspecific distention of the common bile duct, measuring up to 8 mm in diameter. No visible obstructing stones or masses. No calcified gallstones. No intrahepatic biliary dilatation. If there is continued concern, this can be further evaluated with MRCP. 4. Small bilateral inguinal hernias. Right inguinal hernia partially contains small bowel without evidence of obstruction. Left inguinal hernia is fat-containing only. 5. Prominent fatty density in the colonic lumen adjacent to the ileocecal junction, nonspecific. This may represent a small lipoma or ingested fatty contents. 6. Scattered simple appearing left renal cortical cysts, largest measuring 2.7 cm in the left upper renal pole.
--- NOTE | 2018-06-13 10:47 | Consultation ---
History of Present Illness General Date patient seen: Jun 13, 2018 Time patient seen: 10:45 Chief Complaint: Chest Pain Present Illness HPI 68 year old male came to ER with CP, N/V x3 days, diarrhea. BP elevated, troponin normal. Potassium low. CT A/P with no significant pathology. Allergies: Coded Allergies: KETOROLAC TROMETHAMINE (Verified Allergy, Mild, Hives, 06/08/16) AZITHROMYCIN (Unverified Allergy, Unknown, 06/13/18) ERYTHROMYCIN BASE (Verified Adverse Reaction, Mild, NAUSEA VOMITING, ) Uncoded Allergies: NSAIDS (Allergy, Unknown, 01/09/18) peptic ulcer Medication History Scheduled Amlodipine Besylate (Norvasc), 10 MG ORAL DAILY Lisinopril* (Lisinopril*), 10 MG ORAL DAILY Pantoprazole* (Protonix*), 40 MG ORAL DAILY Scheduled PRN Ondansetron (Zofran), 4 MG ORAL Q6H PRN Discontinued Medications Aluminum Hydroxide (Aluminum Hydroxide), 320 MG PO NEEDED Discontinued Reason: MD discontinued med Atorvastatin Calcium* (Lipitor*), 10 MG ORAL DAILY, (Reported) Discontinued Reason: MD discontinued med No Known Medications* (NKM - No Known Medications*), 0 ., (Reported) Discontinued Reason: MD discontinued med No Known Medications* (NKM - No Known Medications*), 0 ., (Reported) Discontinued Reason: MD discontinued med Patient History Healthcare decision maker Resuscitation status Advanced Directive on File Review of Systems Constitutional: Reports: no symptoms Eye: Reports: no symptoms ENT: Reports: no symptoms Respiratory: Reports: no symptoms Cardiovascular: Reports: chest pain Gastrointestinal: Reports: nausea, vomiting Genitourinary: Reports: no symptoms Musculoskeletal: Reports: no symptoms Skin: Reports: no symptoms Psychiatric: Reports: no symptoms Neurological: Reports: no symptoms Endocrine: Reports: no symptoms Hematologic/Lymphatic: Reports: no symptoms Physical Exam General Appearance: no apparent distress, alert Lines, tubes and drains: peripheral HEENT: normocephalic, atraumatic, anicteric, mucous membranes moist, PERRL Neck: non-tender, normal alignment, supple Respiratory/Chest: chest wall non-tender, lungs clear Cardiovascular/Chest: normal peripheral pulses, normal rate, regular rhythm Abdomen: normal bowel sounds, non tender, soft, no organomegaly, no mass Extremities: normal range of motion, non-tender, normal inspection, no calf tenderness, normal capillary refill Skin Exam: normal pigmentation 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, no motor/sensory deficits Last 24 Hour Vital Signs Date Time Temp Pulse Resp B/P (MAP) Pulse Ox O2 Delivery O2 Flow Rate FiO2 06/13/18 10:38 96.8 72 20 150/78 (102) 98 06/13/18 10:05 98.7 82 12 138/76 100 Room Air 06/13/18 10:00 98.7 82 12 135/76 100 Room Air 06/13/18 08:30 98.5 73 14 146/70 99 Room Air 06/13/18 07:01 79 16 Room Air 06/13/18 07:01 98.3 75 16 152/71 99 Room Air 06/13/18 06:55 98.1 87 16 174/96 99 Room Air Laboratory Tests Test 06/13/18 07:12 White Blood Count 7.4 K/UL (4.8-10.8) Red Blood Count 4.57 M/UL (4.70-6.10) L Hemoglobin 15.1 G/DL (14.2-18.0) Hematocrit 43.0 % (42.0-52.0) Mean Corpuscular Volume 94 FL (80-99) Mean Corpuscular Hemoglobin 33.1 PG (27.0-31.0) H Mean Corpuscular Hemoglobin Concent 35.1 G/DL (32.0-36.0) Red Cell Distribution Width 10.7 % (11.6-14.8) L Platelet Count 219 K/UL (150-450) Mean Platelet Volume 6.7 FL (6.5-10.1) Neutrophils (%) (Auto) 80.9 % (45.0-75.0) H Lymphocytes (%) (Auto) 10.6 % (20.0-45.0) L Monocytes (%) (Auto) 7.2 % (1.0-10.0) Eosinophils (%) (Auto) 0.8 % (0.0-3.0) Basophils (%) (Auto) 0.5 % (0.0-2.0) Sodium Level 138 MMOL/L (136-145) Potassium Level 3.3 MMOL/L (3.5-5.1) L Chloride Level 99 MMOL/L (98-107) Carbon Dioxide Level 27 MMOL/L (21-32) Anion Gap 12 mmol/L (5-15) Blood Urea Nitrogen 26 mg/dL (7-18) H Creatinine 1.3 MG/DL (0.55-1.30) Estimat Glomerular Filtration Rate 54.6 mL/min (>60) Glucose Level 169 MG/DL (74-106) H Calcium Level 9.3 MG/DL (8.5-10.1) Total Bilirubin 2.7 MG/DL (0.2-1.0) H Direct Bilirubin 0.4 MG/DL (0.0-0.3) H Aspartate Amino Transf (AST/SGOT) 37 U/L (15-37) Alanine Aminotransferase (ALT/SGPT) 27 U/L (12-78) Alkaline Phosphatase 80 U/L (46-116) Total Creatine Kinase 320 U/L (26-308) H Creatine Kinase MB 2.4 NG/ML (0.0-3.6) Creatine Kinase MB Relative Index 0.7 Troponin I 0.017 ng/mL (0.000-0.056) Total Protein 7.7 G/DL (6.4-8.2) Albumin 4.3 G/DL (3.4-5.0) Globulin 3.4 g/dL Albumin/Globulin Ratio 1.3 (1.0-2.7) Lipase 217 U/L (73-393) Height (Feet): 5 Height (Inches): 5.00 Weight (Pounds): 160 Medications Current Medications Medications (Trade) Dose Ordered Sig/Bernardo Route PRN Reason Start Time Stop Time Status Last Admin Dose Admin Iopamidol (Isovue-300 100ml) 100 ml NOW PRN INJ Radiology Procedure 06/13/18 07:30 Assessment/Plan Status: stable Assessment/Plan Status: stable Assessment/Plan Chest Pain Nauseas vomiting Diarrhea Hypertension Kidney stones -Serial EKG/Troponin -Zofran prn -PPI BID -Nitro prn chest pain -Empiric abx for diarrhea - no blood or mucous in stool -GI followup -Norvasc for BP -Outpatient stress test -IV fluids -No indication for cath -Hold heparin Harry Calabrese MD Jun 13, 2018 10:47
[2018-06-13] MEDS ORDERED: Promethazine HCl 12.5 MG in NS 55 ML IVPB PRN (12:15)
--- NOTE | 2018-06-13 14:17 | History and Physical ---
History of Present Illness General Date patient seen: Jun 13, 2018 Time patient seen: 14:02 Reason for Hospitalization: Chest Pain Present Illness HPI 68 yo male with no sig pmh presents with complaints of abdominal pain, nausea, vomiting and midsternal 5/10 chest pain. Patients states he has diarrhea which he has had for a long time now, that alternates with constipation at times. Admits to burning epigastric pain. Denies headaches or vision changes, denies fevers/chills. Denies any flank pain or dysuria. BP elevated, troponin normal. Potassium low. CT A/P with no significant pathology. cardiology consulted. EKG Nsr no acute st t wave changes. social hx reviewed: denies alcohol use, smokes half ppd, denies any drug use past fam hx reviewed; Denies any sig past fam hx code status : full code Allergies: Coded Allergies: KETOROLAC TROMETHAMINE (Verified Allergy, Mild, Hives, 06/08/16) AZITHROMYCIN (Unverified Allergy, Unknown, 06/13/18) ERYTHROMYCIN BASE (Verified Adverse Reaction, Mild, NAUSEA VOMITING, ) Uncoded Allergies: NSAIDS (Allergy, Unknown, 01/09/18) peptic ulcer Medication History Scheduled Aluminum Hydroxide (Aluminum Hydroxide), 320 MG PO NEEDED Atorvastatin Calcium* (Lipitor*), 10 MG ORAL DAILY, (Reported) No Known Medications* (NKM - No Known Medications*), 0 ., (Reported) No Known Medications* (NKM - No Known Medications*), 0 ., (Reported) Patient History History Provided By: Patient Healthcare decision maker self Resuscitation status Full Code Advanced Directive on File No Review of Systems ROS Narrative 14 point ros reviewed and negative except per the above HPI Physical Exam General Appearance: WD/WN, no apparent distress, alert Lines, tubes and drains: peripheral HEENT: normocephalic, atraumatic Neck: non-tender, normal alignment, supple Respiratory/Chest: chest wall non-tender, lungs clear, normal breath sounds, no respiratory distress, no accessory muscle use Cardiovascular/Chest: normal peripheral pulses, normal rate, regular rhythm Abdomen: normal bowel sounds, non tender, soft, no organomegaly, no mass Extremities: normal range of motion, non-tender, normal inspection, no calf tenderness, normal capillary refill Skin Exam: normal pigmentation, warm/dry 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, no motor/sensory deficits, alert, oriented x 3, responsive, normal mood/affect Last 24 Hour Vital Signs Date Time Temp Pulse Resp B/P (MAP) Pulse Ox O2 Delivery O2 Flow Rate FiO2 06/13/18 11:46 Room Air 06/13/18 10:38 96.8 72 20 150/78 (102) 98 06/13/18 10:05 98.7 82 12 138/76 100 Room Air 06/13/18 10:00 98.7 82 12 135/76 100 Room Air 06/13/18 08:30 98.5 73 14 146/70 99 Room Air 06/13/18 07:01 79 16 Room Air 06/13/18 07:01 98.3 75 16 152/71 99 Room Air 06/13/18 06:55 98.1 87 16 174/96 99 Room Air Laboratory Tests Test 06/13/18 07:12 White Blood Count 7.4 K/UL (4.8-10.8) Red Blood Count 4.57 M/UL (4.70-6.10) L Hemoglobin 15.1 G/DL (14.2-18.0) Hematocrit 43.0 % (42.0-52.0) Mean Corpuscular Volume 94 FL (80-99) Mean Corpuscular Hemoglobin 33.1 PG (27.0-31.0) H Mean Corpuscular Hemoglobin Concent 35.1 G/DL (32.0-36.0) Red Cell Distribution Width 10.7 % (11.6-14.8) L Platelet Count 219 K/UL (150-450) Mean Platelet Volume 6.7 FL (6.5-10.1) Neutrophils (%) (Auto) 80.9 % (45.0-75.0) H Lymphocytes (%) (Auto) 10.6 % (20.0-45.0) L Monocytes (%) (Auto) 7.2 % (1.0-10.0) Eosinophils (%) (Auto) 0.8 % (0.0-3.0) Basophils (%) (Auto) 0.5 % (0.0-2.0) Sodium Level 138 MMOL/L (136-145) Potassium Level 3.3 MMOL/L (3.5-5.1) L Chloride Level 99 MMOL/L (98-107) Carbon Dioxide Level 27 MMOL/L (21-32) Anion Gap 12 mmol/L (5-15) Blood Urea Nitrogen 26 mg/dL (7-18) H Creatinine 1.3 MG/DL (0.55-1.30) Estimat Glomerular Filtration Rate 54.6 mL/min (>60) Glucose Level 169 MG/DL (74-106) H Calcium Level 9.3 MG/DL (8.5-10.1) Total Bilirubin 2.7 MG/DL (0.2-1.0) H Direct Bilirubin 0.4 MG/DL (0.0-0.3) H Aspartate Amino Transf (AST/SGOT) 37 U/L (15-37) Alanine Aminotransferase (ALT/SGPT) 27 U/L (12-78) Alkaline Phosphatase 80 U/L (46-116) Total Creatine Kinase 320 U/L (26-308) H Creatine Kinase MB 2.4 NG/ML (0.0-3.6) Creatine Kinase MB Relative Index 0.7 Troponin I 0.017 ng/mL (0.000-0.056) Total Protein 7.7 G/DL (6.4-8.2) Albumin 4.3 G/DL (3.4-5.0) Globulin 3.4 g/dL Albumin/Globulin Ratio 1.3 (1.0-2.7) Lipase 217 U/L (73-393) Height (Feet): 5 Height (Inches): 11.00 Weight (Pounds): 148 Medications Current Medications Medications (Trade) Dose Ordered Sig/Bernardo Route PRN Reason Start Time Stop Time Status Last Admin Dose Admin Hydralazine HCl (Apresoline) 10 mg Q6H PRN IV sbp>160 06/13/18 12:30 07/13/18 12:29 Iopamidol (Isovue-300 100ml) 100 ml NOW PRN INJ Radiology Procedure 06/13/18 07:30 Ondansetron HCl (Zofran) 4 mg Q4H PRN IVP Nausea & Vomiting 06/13/18 12:27 07/13/18 12:26 06/13/18 12:44 Pantoprazole (Protonix) 40 mg DAILY ORAL 06/14/18 09:00 07/14/18 08:59 Potassium Chloride 100 ml @ 100 mls/hr Q1H IVPB 06/13/18 13:00 06/13/18 16:59 Promethazine HCl 12.5 mg/Sodium Chloride 55.5 ml @ 111 mls/hr Q6H PRN IVPB Nausea & Vomiting 06/13/18 12:15 07/13/18 12:14 Sodium Chloride 1,000 ml @ 150 mls/hr Q6H40M IV 06/13/18 12:27 07/13/18 12:26 06/13/18 12:54 Assessment/Plan Status: stable Assessment/Plan Chest Pain - BP elevated, troponin normal. Potassium low. CT A/P with no significant pathology. - appreciate cardiology consulted - likely due to uncontrolled htn - ekg reviewed, nsr, no acute st t wave changes Intractable Nausea/Vomiting - prn zofran - ivf Diarrhea? - monitor - checking UA as well - will start on zosyn for now - ct reviewed, no acute abd pathology, b/l stable nonobstructing renal stones noted. Nephrolithiasis - stable, nonobstructing, b/l stones - check UA Uncontrolled HTN - sbp 150s - will start amlodipine HANNAH - Cr 1.3 - fluids - likely prerenal due to dehydration Hypokalemia - K 3.3 - replenish - check mg level diet: regular DVT Prophylaxis: SCD, HSQ Code Status: Full Hospital Classification Declaration: Based on this initial evaluation, and depending on the patient's clinical course, I anticipate that this patient will require hospitalization for 2-3 days for close cardiac/hemodynamic and intractable nausea/vomiting/abd evaluation and close respiratory/hemodynamic monitoring. Disposition: Once the patient is stable to leave the hospital, I anticipate the patient will likely be discharged to the following environment: home with HH vs SNF I spent 65 minutes on this patient's case, and 44 minutes were dedicated to counseling and/or care coordination. Discussed with patient/family, nursing staff, SW/CM, [] regarding clinical status, treatment course, and disposition planning. Time of note may not reflect time of encounter. -------- Date of Discussion: 06/13/18 A [id number] discussion with the patient regarding the patient's advanced care planning took place during this hospitalization on the above date. The discussion included the explanation and discussion of advance directives and associated forms/documents, as well as the patient's current code status. We also discussed at length the patient's medical conditions (both acute and chronic), general prognosis, treatment options, and goals of care. The following summarizes the discussion: Advance Care Planning/Goals of Care: - Will attempt to fill out an AD and/or POLST with the patient prior to discharge, if not already completed - Continue current evaluation and management of any acute and chronic medical issues - Will continue to support the patient/family - Will continue to discuss both short- and long-term goals of care DPOA-HC/Surrogate Decision Maker: None currently appointed Code Status: Full Code AD Forms/Documents Completed: Deferred A total of 35 minutes was spent on this discussion, including counseling, answering questions, and completing, if any, pertinent advanced care planning forms/documents. Carlos Goldman MD Jun 13, 2018 14:17
[2018-06-13] MEDS ORDERED: Morphine Sulfate 2mg/ml Inj IVP PRN (15:15)
[2018-06-13] MEDS ORDERED: Morphine Sulfate 2mg/ml Inj IVP ONE (15:15)
[2018-06-13] MEDS: Morphine Sulfate 4mg/ml Inj (IV/IM USE ONLY) IVP PRN ×2 (16:17→21:42)
[2018-06-13] MEDS: Piperacillin/Tazobactam 3.375 GM in NS 110 ML IVPB SCH ×2 (16:30→21:44)
--- NOTE | 2018-06-13 19:19 | NUR ---
HAND-OFF: Report given to Seble WRIGHT.
[2018-06-13 20:39] LABS: APPEARANCE,URINE CLEAR; BILIRUBIN, URINE NEGATIVE (NEGATIVE); GLUCOSE, URINE (UA) NEGATIVE (NEGATIVE); KETONES,URINE 1+ (NEGATIVE); LEUKOCYTE ESTERASE ,URINE NEGATIVE (NEGATIVE); NITRITE,URINE NEGATIVE (NEGATIVE); PH,URINE 6.5 (4.5-8.0); PROTEIN,URINE 2+ (NEGATIVE); UROBILINOGEN,URINE 1 MG/DL (0.0-1.0)
[2018-06-13 20:41] LABS: COLOR,URINE YELLOW
[2018-06-14] VITALS: BP 137/75
[2018-06-14] MEDS: Morphine Sulfate 4mg/ml Inj (IV/IM USE ONLY) IVP PRN ×2 (03:27→09:35)
[2018-06-14 04:00] VITALS: BP 140/67
[2018-06-14] MEDS: Piperacillin/Tazobactam 3.375 GM in NS 110 ML IVPB SCH (06:09)
[2018-06-14] MEDS ORDERED: ZOFRAN4 MG ORAL (06:56)
[2018-06-14] MEDS ORDERED: PROTONIX40 MG ORAL (06:56)
[2018-06-14] MEDS ORDERED: NORVASC10 MG ORAL (06:56)
[2018-06-14] MEDS ORDERED: LISINOPRIL10 MG ORAL (06:56)
--- NOTE | 2018-06-14 07:01 | Discharge Summary ---
Discharge Summary Hospital Course Date of Admission Jun 13, 2018 at 07:35 Date of Discharge 06-14-18 Admitting Diagnosis ACUTE CORONARY SYNDROME HPI Jeffrey Burroughs is a 68 year old male who was admitted on Jun 13, 2018 at 07:35 for Acute Coronary Syndrome 68 yo male with no sig pmh presents with complaints of abdominal pain, nausea, vomiting and midsternal 5/10 chest pain. Patients states he has diarrhea which he has had for a long time now, that alternates with constipation at times. Admits to burning epigastric pain. Denies headaches or vision changes, denies fevers/chills. Denies any flank pain or dysuria. BP elevated, troponin normal. Potassium low. CT A/P with no significant pathology. cardiology consulted. EKG Nsr no acute st t wave changes. symptoms resolved with improved bp control dc home with amlodipine and acei feels burning epigastric pain radiating up neck. states he felt better when given the protonix. discussed with patient to f/u outpt with Gi and a PCP, patient states he understands and agrees dc home Hospital Course Chest Pain - BP elevated, troponin normal. Potassium low. CT A/P with no significant pathology. - appreciate cardiology consulted - likely due to uncontrolled htn - ekg reviewed, nsr, no acute st t wave changes - resolved Intractable Nausea/Vomiting - prn zofran - ivf - likely due to gerd Diarrhea? - monitor - checking UA as well - will start on zosyn for now - ct reviewed, no acute abd pathology, b/l stable nonobstructing renal stones noted. Nephrolithiasis - stable, nonobstructing, b/l stones - check UA Uncontrolled HTN - sbp 150s - improved with amlodipine and acei HANNAH - Cr 1.3 - fluids - likely prerenal due to dehydration Hypokalemia - K 3.3 - replenished - check mg level diet: regular DVT Prophylaxis: SCD, HSQ Code Status: Full Hospital Classification Declaration: Based on this initial evaluation, and depending on the patient's clinical course, I anticipate that this patient will require hospitalization for 2-3 days for close cardiac/hemodynamic and intractable nausea/vomiting/abd evaluation and close respiratory/hemodynamic monitoring. Disposition: Once the patient is stable to leave the hospital, I anticipate the patient will likely be discharged to the following environment: home with vs SNF I spent 65 minutes on this patient's case, and 44 minutes were dedicated to counseling and/or care coordination. Discussed with patient/family, nursing staff, SW/CM, [] regarding clinical status, treatment course, and disposition planning. Time of note may not reflect time of encounter. -------- Date of Discussion: 06/13/18 A [id number] discussion with the patient regarding the patient's advanced care planning took place during this hospitalization on the above date. The discussion included the explanation and discussion of advance directives and associated forms/documents, as well as the patient's current code status. We also discussed at length the patient's medical conditions (both acute and chronic), general prognosis, treatment options, and goals of care. The following summarizes the discussion: Advance Care Planning/Goals of Care: - Will attempt to fill out an AD and/or POLST with the patient prior to discharge, if not already completed - Continue current evaluation and management of any acute and chronic medical issues - Will continue to support the patient/family - Will continue to discuss both short- and long-term goals of care DPOA-HC/Surrogate Decision Maker: None currently appointed Code Status: Full Code AD Forms/Documents Completed: Deferred A total of 35 minutes was spent on this discussion, including counseling, answering questions, and completing, if any, pertinent advanced care planning forms/documents. Discharge Condition Upon Discharge: stable Discharge Disposition Patient was discharged to home Discharge Diagnoses: (1) Chest pain (2) Intractable nausea and vomiting (3) GERD (gastroesophageal reflux disease) (4) Uncontrolled hypertension Carlos Goldman MD Jun 14, 2018 07:01
[2018-06-14 08:00] VITALS: BP 121/79
--- NOTE | 2018-06-14 08:03 | NUR ---
NURSE NOTES: Pt in bed in low position HOB in fowlers, pt awake and Ox4 calm and cooperative, pt on Room air, md placed discharge order, pt on cardiac monitoring, Pt aware of discharge, pt stated he feels ok and will see his doctor regarding his hernia, pt reports pain level of 7 out of 10, IV intact and running abx last dose, fluids dc'd, no s/s of distress or sob noted.
[2018-06-14] MEDS ORDERED: Lisinopril 10mg tab ORAL SCH (09:00)
[2018-06-14 09:17] LABS: BASOPHILS % (AUTO) 1.2 % (0.0-2.0); EOSINOPHILS % (AUTO) 3.6 % (0.0-3.0); HEMATOCRIT 37.3 % (42.0-52.0); HEMOGLOBIN 13.2 G/DL (14.2-18.0); LYMPHOCYTES % (AUTO) 19.3 % (20.0-45.0); MEAN CORPUSCULAR VOLUME 95 FL (80-99); NEUTROPHILS % (AUTO) 66.9 % (45.0-75.0); PLATELET COUNT 170 K/UL (150-450); RED BLOOD COUNT 3.92 M/UL (4.70-6.10); RED CELL DISTRIBUTION WIDTH 10.9 % (11.6-14.8); WHITE BLOOD COUNT 9.5 K/UL (4.8-10.8)
[2018-06-14 09:27] LABS: ANION GAP 10 mmol/L (5-15); BLOOD UREA NITROGEN 20 mg/dL (7-18); CALCIUM 8.5 MG/DL (8.5-10.1); CARBON DIOXIDE 25 MMOL/L (21-32); CHLORIDE 105 MMOL/L (98-107); CREATININE 1.2 MG/DL (0.55-1.30); POTASSIUM 3.3 MMOL/L (3.5-5.1); SODIUM 140 MMOL/L (136-145)
[2018-06-14 09:35] VITALS: BP 121/79
--- NOTE | 2018-06-14 10:01 | Cardiology Progress Note ---
Assessment/Plan Status: doing well, stable Assessment/Plan Assessment/Plan Chest pain HTN Nausea vomiting Diarrhea -ok to d/c home today -No evidence of ACS -Outpatient stress test -Continue norvasc -Zofran prn -PPI BID -Check H pylori by pcp Subjective Cardiovascular: Reports: no symptoms Respiratory: Reports: no symptoms Gastrointestinal/Abdominal: Reports: no symptoms Genitourinary: Reports: no symptoms Subjective No acute events, vitals stable, no further diarrhea/N/V, no chest pain EKG tropnin negative for ACS Objective Last 24 Hour Vital Signs Date Time Temp Pulse Resp B/P (MAP) Pulse Ox O2 Delivery O2 Flow Rate FiO2 06/14/18 09:35 121/79 06/14/18 09:35 76 121/79 06/14/18 08:00 98.4 76 20 121/79 (93) 97 06/14/18 04:00 98.3 81 18 140/67 (91) 96 06/14/18 04:00 71 06/14/18 03:57 97.2 06/14/18 00:00 97.2 66 18 137/75 (95) 97 06/14/18 00:00 64 06/13/18 21:00 Room Air 06/13/18 20:00 98.4 80 18 142/84 (103) 95 06/13/18 20:00 73 06/13/18 16:00 97.5 68 20 142/76 (98) 94 06/13/18 15:38 73 06/13/18 15:09 72 150/78 06/13/18 12:00 97.8 73 20 148/80 (102) 96 06/13/18 11:46 Room Air 06/13/18 11:44 80 06/13/18 10:38 96.8 72 20 150/78 (102) 98 06/13/18 10:05 98.7 82 12 138/76 100 Room Air 06/13/18 10:00 98.7 82 12 135/76 100 Room Air General Appearance: no apparent distress, alert EENT: PERRL/EOMI, normal ENT inspection Neck: non-tender, normal alignment Rhythm: NSR Cardiovascular: normal peripheral pulses, normal rate, regular rhythm Respiratory/Chest: chest wall non-tender, lungs clear, normal breath sounds Abdomen: normal bowel sounds, non tender, soft, no organomegaly Extremities: normal range of motion, non-tender, normal inspection, no calf tenderness 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0) H Urine Leukocyte Esterase Negative (NEGATIVE) Urine RBC 0-2 /HPF (0 - 0) H Urine WBC 0 /HPF (0 - 0) Urine Squamous Epithelial Cells None /LPF (NONE/OCC) Urine Bacteria None /HPF (NONE) Urine Opiates Screen Negative (NEGATIVE) Urine Barbiturates Screen Negative (NEGATIVE) Phencyclidine (PCP) Screen Negative (NEGATIVE) Urine Amphetamines Screen Negative (NEGATIVE) Urine Benzodiazepines Screen Negative (NEGATIVE) Urine Cocaine Screen Negative (NEGATIVE) Urine Marijuana (THC) Screen Positive (NEGATIVE) H White Blood Count 9.5 K/UL (4.8-10.8) Red Blood Count 3.92 M/UL (4.70-6.10) L Hemoglobin 13.2 G/DL (14.2-18.0) L Hematocrit 37.3 % (42.0-52.0) L Mean Corpuscular Volume 95 FL (80-99) Mean Corpuscular Hemoglobin 33.8 PG (27.0-31.0) H Mean Corpuscular Hemoglobin Concent 35.4 G/DL (32.0-36.0) Red Cell Distribution Width 10.9 % (11.6-14.8) L Platelet Count 170 K/UL (150-450) Mean Platelet Volume 6.3 FL (6.5-10.1) L Neutrophils (%) (Auto) 66.9 % (45.0-75.0) Lymphocytes (%) (Auto) 19.3 % (20.0-45.0) L Monocytes (%) (Auto) 9.0 % (1.0-10.0) Eosinophils (%) (Auto) 3.6 % (0.0-3.0) H Basophils (%) (Auto) 1.2 % (0.0-2.0) Sodium Level 140 MMOL/L (136-145) Potassium Level 3.3 MMOL/L (3.5-5.1) L Chloride Level 105 MMOL/L (98-107) Carbon Dioxide Level 25 MMOL/L (21-32) Anion Gap 10 mmol/L (5-15) Blood Urea Nitrogen 20 mg/dL (7-18) H Creatinine 1.2 MG/DL (0.55-1.30) Estimat Glomerular Filtration Rate 59.9 mL/min (>60) Glucose Level 143 MG/DL (74-106) H Calcium Level 8.5 MG/DL (8.5-10.1) Harry Calabrese MD Jun 14, 2018 10:01
--- NOTE | 2018-06-14 10:03 | Diagnostic Imaging Report ---
Indication: Chest pain Comparison: 09/02/2016 A single view chest radiograph was obtained. Findings: Lungs are clear. Heart size is normal. Bones are osteopenic. No pleural effusion seen. IMPRESSION: No acute disease
--- NOTE | 2018-06-14 11:39 | NUR ---
DISCHARGE NOTES: PT ready for discharge, IV and ID band removed, aftercare plan and med recon given, 4 medications to be given to fill at his personal pharmacy, pt calm and cooperative, dressed and signed all belongings and acknowledged his stuff was all there, Pt Ox4, vital WNL. taxi called , pt will be walked down to lobby once taxi arrives.
== END 2018-06-14 11:55 | disposition home or self-care (01) | DRG 313 ==
LOC: EDBD 07:01 → EMR 07:20 → 2E 07:35 → EDBEDREQ 09:08
DX: R07.89 Other chest pain (principal); I10 Essential (primary) hypertension; E86.0 Dehydration; R10.13 Epigastric pain; R11.2 Nausea with vomiting, unspecified; K21.9 Gastro-esophageal reflux disease without esophagitis; Z88.1 Allergy status to other antibiotic agents; Z88.8 Allergy status to other drugs, medicaments and biological substances; N20.0 Calculus of kidney; E87.6 Hypokalemia
CPT/HCPCS: 36415; 71045; 74177; 80048; 80053; 80307; 81003; 82248; 82550; 82553; 83690; 84484; 85025; 93005; 96365; 96375; 99285; J2405

== ENCOUNTER 2018-11-22 10:08 | Inpatient (IN) | payer MEDICARE ==
[~2018-11-22] VITALS: Ht 175.3 cm; Wt 70.3 kg
[~2018-11-22 10:08] MED LIST changes: +LISINOPRIL10 MG ORAL; +NORVASC10 MG ORAL; +PROTONIX40 MG ORAL; +ZOFRAN4 MG ORAL
[2018-11-22] MEDS ORDERED: NKM (10:21)
--- NOTE | 2018-11-22 10:25 | NUR ---
ED Nurse Note: pt walked in due to pain on the left knee started 1 week ago, pt denies trauma, pt is also complaining of inguinal hernia that started 1 year ago and pain worsen 1 week ago. ermd on bedside assessing pt abdomen. will continue to monitor.
[2018-11-22 10:30] VITALS: BP 156/87
--- NOTE | 2018-11-22 10:40 | NUR ---
ED Nurse Note: with new order from [facility], iv started on left ac using elisha 18, blood drawn and was sent to lab. will continue to monitor
[2018-11-22] MEDS ORDERED: Morphine Sulfate 4mg/ml Inj (IV USE ONLY) IVP ONE ×2 (10:45→13:15)
[2018-11-22] MEDS ORDERED: Isovue-300 100ml vial INJ PRN (10:45)
[2018-11-22 10:49] LABS: BASOPHILS % (AUTO) 1.8 % (0.0-2.0); EOSINOPHILS % (AUTO) 2.9 % (0.0-3.0); HEMATOCRIT 40.6 % (42.0-52.0); HEMOGLOBIN 14.3 G/DL (14.2-18.0); LYMPHOCYTES % (AUTO) 29.3 % (20.0-45.0); MEAN CORPUSCULAR VOLUME 94 FL (80-99); MONOCYTES % (AUTO) 8.3 % (1.0-10.0); NEUTROPHILS % (AUTO) 57.8 % (45.0-75.0); PLATELET COUNT 242 K/UL (150-450); RED BLOOD COUNT 4.34 M/UL (4.70-6.10); RED CELL DISTRIBUTION WIDTH 10.7 % (11.6-14.8); WHITE BLOOD COUNT 4.9 K/UL (4.8-10.8)
[2018-11-22 11:04] LABS: ANION GAP 10 mmol/L (5-15); BLOOD UREA NITROGEN 23 mg/dL (7-18); CALCIUM 9.5 MG/DL (8.5-10.1); CARBON DIOXIDE 26 MMOL/L (21-32); CHLORIDE 105 MMOL/L (98-107); CREATININE 1.3 MG/DL (0.55-1.30); POTASSIUM 4.5 MMOL/L (3.5-5.1); SODIUM 141 MMOL/L (136-145)
[2018-11-22 11:09] LABS: ALANINE AMINOTRANSFERASE 20 U/L (12-78); ALBUMIN/GLOBULIN RATIO 1.2 (1.0-2.7); ALKALINE PHOSPHATASE 84 U/L (46-116); ASPARTATE AMINO TRANSFERASE 20 U/L (15-37); BILIRUBIN,TOTAL 0.9 MG/DL (0.2-1.0)
--- NOTE | 2018-11-22 11:11 | Emergency Room Report ---
History of Present Illness General Chief Complaint: Lower Extremity Injury Source: Patient Present Illness HPI 68-year-old male presents ED for evaluation. Complaining of left knee pain for the last week. States that he hears pops and clicks and believes that he "tore a ligament". Pain is throbbing, 8 out of 10, nonradiating. Is able to bear weight. Patient states he has been unsteady on his knee because he has been having problems with his hernia. Has bilateral inguinal hernias for many years now. States that they have "popped out" 2 weeks ago. Is unable to reduce them. Notes nausea, denies vomiting. States he is passing gas. Is having bowel movements. No other aggravating relieving factors. Denies any other associated symptoms Allergies: Coded Allergies: KETOROLAC TROMETHAMINE (Verified Allergy, Mild, Hives, 06/08/16) AZITHROMYCIN (Unverified Allergy, Unknown, 06/13/18) ERYTHROMYCIN BASE (Verified Adverse Reaction, Mild, NAUSEA VOMITING, ) Uncoded Allergies: NSAIDS (Allergy, Unknown, 01/09/18) peptic ulcer Patient History Past Medical History: other - Inguinal hernia Past Surgical History: none Pertinent Family History: none Social History: Denies: smoking, alcohol use, drug use Immunizations: UTD Reviewed Nursing Documentation: PMH: Agreed; PSxH: Agreed Nursing Documentation-PMH Past Medical History: No History, Except For Hx Cardiac Problems: No Hx Hypertension: No Hx Pacemaker: No Hx Asthma: No Hx COPD: No Hx Diabetes: No Hx Cancer: No Hx Gastrointestinal Problems: Yes - Hernia, Kidney stone, PUD Hx Dialysis: No History Of Psychiatric Problem: No Hx Neurological Problems: No Hx Cerebrovascular Accident: No Hx Seizures: No Review of Systems All Other Systems: negative except mentioned in HPI Physical Exam Vital Signs Date Time Temp Pulse Resp B/P (MAP) Pulse Ox O2 Delivery O2 Flow Rate FiO2 11/22/18 10:17 97.0 86 16 154/90 (111) 99 Room Air Sp02 EP Interpretation: reviewed, normal General Appearance: no apparent distress, alert, GCS 15, non-toxic Head: normocephalic, atraumatic Eyes: bilateral eye normal inspection, bilateral eye PERRL ENT: hearing grossly normal, normal pharynx, no angioedema, normal voice Neck: full range of motion, supple/symm/no masses Respiratory: chest non-tender, lungs clear, normal breath sounds, speaking full sentences Cardiovascular #1: regular rate, rhythm, no edema Cardiovascular #2: 2+ carotid (R), 2+ carotid (L), 2+ radial (R), 2+ radial (L) , 2+ dorsalis pedis (R), 2+ dorsalis pedis (L) Gastrointestinal: normal bowel sounds, soft, non-distended, no guarding, no rebound, hernia - bilateral inguinal hernia. Reducible on right. Irreducible on left Rectal: deferred Genitourinary: normal inspection, no CVA tenderness Musculoskeletal: back normal, gait/station normal, normal range of motion, tender - Left knee Neurologic: alert, oriented x3, responsive, motor strength/tone normal, sensory intact, speech normal Psychiatric: judgement/insight normal, memory normal, mood/affect normal, no suicidal/homicidal ideation Reflexes: 3+ bicep (R), 3+ bicep (L), 3+ tricep (R), 3+ tricep (L), 3+ knee (R) , 3+ knee (L) Skin: normal color, no rash, warm/dry, well hydrated Lymphatic: no adenopathy Medical Decision Making Diagnostic Impression: Primary Impression: Acute pancreatitis Qualified Codes: K85.90 - Acute pancreatitis without necrosis or infection, unspecified Additional Impressions: Inguinal hernia Knee pain Qualified Codes: M25.562 - Pain in left knee; G89.29 - Other chronic pain ER Course Hospital Course 68 yo M presents c/o L knee pain. abd pain. h/o hernia Differential diagnoses include: abscess, hernia, SBO Clinical course Patient placed on stretcher. secured entrance monitor. After initial history and physical I ordered labs, IV fluids, UA, pain medication and CT scan, xray of L knee Labs - no leukocytosis, Hb/Hct stable, electrolytes ok, lipase > 1000 CT abdomen and pelvis - bilateral inguinal hernias containing bowel. no obstruction or strangulation Left knee x-ray shows some DJD but no acute fracture patient continues to have pain. evaluated by surgery. patient will be admitted to DR Barragan service I feel this is a highly complex case requiring extensive working including EKG/ Rhythm strip, Xray/CT/US, Blood/urine lab work, repeat exams while in ED, and administration of strong opiates/narcotics for pain control, admission to hospital or close patient follow up. Diagnosis - acute pancreatitis, inguinal hernia, knee pain Patient admitted to floor in serious condition Labs Test 11/22/18 10:37 11/22/18 11:10 White Blood Count 4.9 K/UL (4.8-10.8) Red Blood Count 4.34 M/UL (4.70-6.10) Hemoglobin 14.3 G/DL (14.2-18.0) Hematocrit 40.6 % (42.0-52.0) Mean Corpuscular Volume 94 FL (80-99) Mean Corpuscular Hemoglobin 32.9 PG (27.0-31.0) Mean Corpuscular Hemoglobin Concent 35.2 G/DL (32.0-36.0) Red Cell Distribution Width 10.7 % (11.6-14.8) Platelet Count 242 K/UL (150-450) Mean Platelet Volume 5.7 FL (6.5-10.1) Neutrophils (%) (Auto) 57.8 % (45.0-75.0) Lymphocytes (%) (Auto) 29.3 % (20.0-45.0) Monocytes (%) (Auto) 8.3 % (1.0-10.0) Eosinophils (%) (Auto) 2.9 % (0.0-3.0) Basophils (%) (Auto) 1.8 % (0.0-2.0) Sodium Level 141 MMOL/L (136-145) Potassium Level 4.5 MMOL/L (3.5-5.1) Chloride Level 105 MMOL/L (98-107) Carbon Dioxide Level 26 MMOL/L (21-32) Anion Gap 10 mmol/L (5-15) Blood Urea Nitrogen 23 mg/dL (7-18) Creatinine 1.3 MG/DL (0.55-1.30) Estimat Glomerular Filtration Rate 54.6 mL/min (>60) Glucose Level 142 MG/DL (74-106) Calcium Level 9.5 MG/DL (8.5-10.1) Total Bilirubin 0.9 MG/DL (0.2-1.0) Aspartate Amino Transf (AST/SGOT) 20 U/L (15-37) Alanine Aminotransferase (ALT/SGPT) 20 U/L (12-78) Alkaline Phosphatase 84 U/L (46-116) Total Protein 7.4 G/DL (6.4-8.2) Albumin 4.0 G/DL (3.4-5.0) Globulin 3.4 g/dL Albumin/Globulin Ratio 1.2 (1.0-2.7) Lipase 1120 U/L (73-393) Urine Color Pale yellow Urine Appearance Clear Urine pH 6 (4.5-8.0) Urine Specific [place] 1.020 (1.005-1.035) Urine Protein Negative (NEGATIVE) Urine Glucose (UA) Negative (NEGATIVE) Urine Ketones Negative (NEGATIVE) Urine Blood Negative (NEGATIVE) Urine Nitrite Negative (NEGATIVE) Urine Bilirubin Negative (NEGATIVE) Urine Urobilinogen Normal MG/DL (0.0-1.0) Urine Leukocyte Esterase Negative (NEGATIVE) Other X-Ray Diagnostic Results Other X-Ray Diagnostic Results : X-Ray ordered: L knee # of Views/Limited Vs Complete: 3 View Indication: Pain EP Interpretation: Yes Interpretation: no dislocation, no soft tissue swelling, no fractures Impression: No acute disease Electronically Signed by: Electronically signed by Carrington Crockett MD CT/MRI/US Diagnostic Results CT/MRI/US Diagnostic Results : Imaging Test Ordered: CT A/P Impression L sided inguinal hernia with fat. Right sided hernia with loop of bowel. no obstruction/strangulation Last Vital Signs Date Time Temp Pulse Resp B/P (MAP) Pulse Ox O2 Delivery O2 Flow Rate FiO2 11/22/18 10:17 97.0 86 16 154/90 (111) 99 Room Air Status: improved Disposition: ADMITTED INPATIENT Condition: Serious Referrals: NOT CHOSEN IPA/,REFERRING (PCP) Carrington Crockett MD Nov 22, 2018 11:11
[2018-11-22 11:19] LABS: APPEARANCE,URINE CLEAR; BILIRUBIN, URINE NEGATIVE (NEGATIVE); COLOR,URINE PALE YELLOW; GLUCOSE, URINE (UA) NEGATIVE (NEGATIVE); KETONES,URINE NEGATIVE (NEGATIVE); LEUKOCYTE ESTERASE ,URINE NEGATIVE (NEGATIVE); NITRITE,URINE NEGATIVE (NEGATIVE); PH,URINE 6 (4.5-8.0); PROTEIN,URINE NEGATIVE (NEGATIVE); UROBILINOGEN,URINE NORMAL MG/DL (0.0-1.0)
[2018-11-22 11:38] VITALS: BP 147/86
--- NOTE | 2018-11-22 12:12 | NUR ---
ED Nurse Note: PT IS AWARE OF HOSPITAL ADMISSION. VSS.
--- NOTE | 2018-11-22 12:40 | NUR ---
ED Nurse Note: pt went to ct
--- NOTE | 2018-11-22 12:55 | NUR ---
ED Nurse Note: Pt. came back from CT
--- NOTE | 2018-11-22 13:10 | NUR ---
ED Nurse Note: PT STILL IN PAIN. DR MCFARLANE NOTIFIED AND WAITING FOR NEW ODERS.
--- NOTE | 2018-11-22 13:15 | NUR ---
ED Nurse Note: DR ESTRELLA AT THE BED SIDE.
--- NOTE | 2018-11-22 13:18 | NUR ---
ED Nurse Note: DR BLANCO AT THE BED SIDE.
--- NOTE | 2018-11-22 13:22 | Diagnostic Imaging Report ---
Clinical Indication: Abdominal pain Technique: No oral contrast utilized, per emergency room physician request IV administration nonionic contrast. Venous phase spiral acquisition obtained through the abdomen and pelvis. Multiplanar reconstructions were generated. Total dose length product 1041.24 mGycm. CTDIvol(s) 11.39,12.2,12.44 mGy. Dose reduction achieved using automated exposure control Comparison: 06/13/2018 Findings: Lack of enteric contrast limits assessment of the GI tract. The appendix is normal. There is questionably some wall thickening of the ascending colon. There is colonic diverticulosis. No evidence of acute diverticulitis. Small direct right inguinal hernia containing a loop of small bowel is demonstrated. No evidence of obstruction or strangulation. There is a small left inguinal hernia which contains fat, although the edge of the sigmoid colon protrudes slightly into the orifice. Contrast is seen throughout the entirety of the small bowel and into the cecum. No small bowel distention or small bowel wall thickening. The distal esophagus, stomach, and duodenum are unremarkable. No free or loculated intraperitoneal gas or fluid is evident. The liver demonstrates a few subcentimeter low-attenuation lesions which are too small to characterize. The gallbladder is unremarkable. The common bile duct appears significantly less prominent than on the previous study. Pancreas, spleen, adrenals are all unremarkable. The kidneys demonstrate bilateral small nonobstructive calyceal calculi. The left kidney demonstrates multiple cysts. No ureteral calculi, hydronephrosis, or hydroureter demonstrated. 2 calculi are demonstrated within the bladder, each measuring approximately 7 mm in diameter. Note that on the prior study, there are 4 bladder calculi demonstrated. The prostate is prominent. There is a right scrotal hydrocele and a right scrotal calcification noted. Some scarring is seen at the right lung base. The bones demonstrate lumbar scoliotic deformity. Impression: Limited assessment of the GI tract, due to lack of enteric contrast administration. No definite acute abnormality Small direct right inguinal hernia, containing a loop of small bowel again demonstrated. No evidence of obstruction or strangulation Small fat-containing left inguinal hernia and the edge of the sigmoid colon Subcentimeter low-attenuation liver lesions, too small to characterize, most likely benign simple cysts or bile hamartomas. No further follow-up necessary Bilateral subcentimeter nonobstructive renal calyceal calculi, also previously reported 2 bladder calculi are present. Previously there were 4 Other findings as noted, including lumbar scoliotic deformity, right basilar pulmonary parenchymal scarring, right scrotal hydrocele, right scrotal calcification, left renal cysts The CT scanner at [facility] is accredited by the [employer] and the scans are performed using protocols designed to limit radiation exposure to as low as reasonably achievable to attain images of sufficient resolution adequate for diagnostic evaluation.
[2018-11-22] MEDS ORDERED: HYDROmorphone 1mg/ml Carpuject IVP PRN (13:30)
[2018-11-22 13:40] VITALS: BP 145/75
--- NOTE | 2018-11-22 14:06 | History and Physical ---
History of Present Illness General Date patient seen: Nov 22, 2018 Time patient seen: 13:20 Reason for Hospitalization: Lower Extremity Injury Present Illness HPI 68 year old man with history of right inguinal hernia repair, nephrolithiasis, mild HTN, pancreatitis in 2014 admitted at this hospital who initially presented complaining of left knee pain for the last week. States that he hears pops and clicks and believes that he "tore a ligament". Pain is throbbing , 8 out of 10, nonradiating. Is able to bear weight. Patient states he has been unsteady on his knee because he has been having problems with his hernia. Has bilateral inguinal hernias for many years now. States that they have "popped out" 2 weeks ago. Is unable to reduce them. Notes nausea, denies vomiting. States he is passing gas. Is having bowel movements. No other aggravating relieving factors. Patient had blood tests in ED showing elevated lipase of 1100. No fever or chills. Denies alcohol consumption. Patient is unsure why he had pancreatitis in 2014. Social History: No alcohol or tobacco Family History: No premature CAD Allergies: Coded Allergies: KETOROLAC TROMETHAMINE (Verified Allergy, Mild, Hives, 06/08/16) AZITHROMYCIN (Unverified Allergy, Unknown, 06/13/18) ERYTHROMYCIN BASE (Verified Adverse Reaction, Mild, NAUSEA VOMITING, ) Uncoded Allergies: NSAIDS (Allergy, Unknown, 01/09/18) peptic ulcer Medication History Scheduled Amlodipine Besylate (Norvasc), 10 MG ORAL DAILY Lisinopril* (Lisinopril*), 10 MG ORAL DAILY No Known Medications* (NKM - No Known Medications*), 0 ., (Reported) Pantoprazole* (Protonix*), 40 MG ORAL DAILY Scheduled PRN Ondansetron (Zofran), 4 MG ORAL Q6H PRN Patient History History Provided By: Patient Healthcare decision maker Resuscitation status Advanced Directive on File Review of Systems Constitutional: Denies: chills Eye: Denies: eye pain, blurred vision Respiratory: Denies: cough Cardiovascular: Denies: chest pain Gastrointestinal: Reports: nausea; Denies: abdominal pain, constipation, diarrhea, vomiting, melena, hematemesis Genitourinary: Denies: discharge Musculoskeletal: Denies: back pain Skin: Denies: rash Psychiatric: Denies: anxiety Neurological: Denies: headache Physical Exam General Appearance: no apparent distress, alert HEENT: atraumatic, anicteric, mucous membranes moist Neck: normal alignment, supple, normal inspection Respiratory/Chest: lungs clear, normal breath sounds, no respiratory distress, no accessory muscle use Cardiovascular/Chest: normal rate, regular rhythm, regularly irregular Abdomen: soft, no organomegaly, no mass, other - Mild epigastric tenderness Extremities: non-tender, normal inspection, no calf tenderness 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, no motor/sensory deficits, abnormal gait , alert Last 24 Hour Vital Signs Date Time Temp Pulse Resp B/P (MAP) Pulse Ox O2 Delivery O2 Flow Rate FiO2 11/22/18 11:38 97.5 75 17 147/86 100 Room Air 11/22/18 11:11 97.5 11/22/18 10:30 97.0 89 19 156/87 99 Room Air 11/22/18 10:17 97.0 86 16 154/90 (111) 99 Room Air Laboratory Tests Test 11/22/18 10:37 11/22/18 11:10 White Blood Count 4.9 K/UL (4.8-10.8) Red Blood Count 4.34 M/UL (4.70-6.10) L Hemoglobin 14.3 G/DL (14.2-18.0) Hematocrit 40.6 % (42.0-52.0) L Mean Corpuscular Volume 94 FL (80-99) Mean Corpuscular Hemoglobin 32.9 PG (27.0-31.0) H Mean Corpuscular Hemoglobin Concent 35.2 G/DL (32.0-36.0) Red Cell Distribution Width 10.7 % (11.6-14.8) L Platelet Count 242 K/UL (150-450) Mean Platelet Volume 5.7 FL (6.5-10.1) L Neutrophils (%) (Auto) 57.8 % (45.0-75.0) Lymphocytes (%) (Auto) 29.3 % (20.0-45.0) Monocytes (%) (Auto) 8.3 % (1.0-10.0) Eosinophils (%) (Auto) 2.9 % (0.0-3.0) Basophils (%) (Auto) 1.8 % (0.0-2.0) Sodium Level 141 MMOL/L (136-145) Potassium Level 4.5 MMOL/L (3.5-5.1) Chloride Level 105 MMOL/L (98-107) Carbon Dioxide Level 26 MMOL/L (21-32) Anion Gap 10 mmol/L (5-15) Blood Urea Nitrogen 23 mg/dL (7-18) H Creatinine 1.3 MG/DL (0.55-1.30) Estimat Glomerular Filtration Rate 54.6 mL/min (>60) Glucose Level 142 MG/DL (74-106) H Calcium Level 9.5 MG/DL (8.5-10.1) Total Bilirubin 0.9 MG/DL (0.2-1.0) Aspartate Amino Transf (AST/SGOT) 20 U/L (15-37) Alanine Aminotransferase (ALT/SGPT) 20 U/L (12-78) Alkaline Phosphatase 84 U/L (46-116) Total Protein 7.4 G/DL (6.4-8.2) Albumin 4.0 G/DL (3.4-5.0) Globulin 3.4 g/dL Albumin/Globulin Ratio 1.2 (1.0-2.7) Lipase 1120 U/L (73-393) H Urine Color Pale yellow Urine Appearance Clear Urine pH 6 (4.5-8.0) Urine Specific [place] 1.020 (1.005-1.035) Urine Protein Negative (NEGATIVE) Urine Glucose (UA) Negative (NEGATIVE) Urine Ketones Negative (NEGATIVE) Urine Blood Negative (NEGATIVE) Urine Nitrite Negative (NEGATIVE) Urine Bilirubin Negative (NEGATIVE) Urine Urobilinogen Normal MG/DL (0.0-1.0) Urine Leukocyte Esterase Negative (NEGATIVE) Height (Feet): 5 Height (Inches): 9.00 Weight (Pounds): 155 Medications Current Medications Medications (Trade) Dose Ordered Sig/Bernardo Route PRN Reason Start Time Stop Time Status Last Admin Dose Admin Acetaminophen (Tylenol) 650 mg Q4H PRN ORAL Mild Pain (Pain Scale 1-3) 11/22/18 13:30 12/22/18 13:29 Barium Sulfate (Readi-Cat 2) 450 ml NOW PRN ORAL Radiology Procedure 11/22/18 10:45 11/24/18 10:33 Dextrose (Dextrose 50%) 25 ml Q30M PRN IV Hypoglycemia 11/22/18 13:30 12/22/18 13:29 Dextrose (Dextrose 50%) 50 ml Q30M PRN IV Hypoglycemia 11/22/18 13:30 12/22/18 13:29 Heparin Sodium (Porcine) (Heparin 5000 units/ml) 5,000 units EVERY 12 HOURS SUBQ 11/22/18 21:00 12/22/18 20:59 Hydromorphone HCl (Dilaudid) 1 mg Q4H PRN IVP Moderate Pain (Pain Scale 4-6) 11/22/18 13:30 11/29/18 13:29 Hydromorphone HCl (Dilaudid) 2 mg Q4H PRN IVP Severe Pain (Pain Scale 7-10) 11/22/18 13:30 11/29/18 13:29 Iopamidol (Isovue-300 100ml) 100 ml NOW PRN INJ Radiology Procedure 11/22/18 10:45 Ondansetron HCl (Zofran) 4 mg Q6H PRN IVP Nausea & Vomiting 11/22/18 13:30 12/22/18 13:29 Assessment/Plan Status: stable Assessment/Plan: 68 year old man with HTN, chronic neck pain, history of right sided inguinal hernia repair who presents with #Possible acute pancreatitis -admit to medical floor -NPO -IVF with LR -IV Dilaudid and Zofran prn -CT A/P pending -Check US Abd -check lipids, LFTs and lipase in AM #Bilateral inguinal hernias, no evidence of incarceration or bowel obstruction -Surgery eval appreciated -Possible surgical hernia repair next week. #Left knee pain and gait instability -PT eval -Supportive care #history of HTN, not on meds as outpatient -will monitor pressures VTE PPx Heparin Full Code I spent 70 minutes on this patient's case, and 35 minutes was dedicated to counseling and/or care coordination. I spent an additional 38 minutes on review of medical records including prior outside hospital records, consult notes, progress notes, procedures, imaging, labs, hemodynamics, and other clinical documentation. Saqib Vang MD Nov 22, 2018 14:06
--- NOTE | 2018-11-22 14:14 | NUR ---
ED Nurse Note: TRIED TO CALL FOR REPORT. NO AVAILABLE ASSIGNED RN YET FOR THIS PT. THEY WILL CALL AGAIN.
--- NOTE | 2018-11-22 14:51 | NUR ---
ED Nurse Note: REPORT GIVEN TO VAISHALI WRIGHT OF MED SURG UNIT.
--- NOTE | 2018-11-22 15:03 | NUR ---
ED Nurse Note: PT TRANSFERRED TO MED SURG UNIT VIA GURNEY WITH ALL BELONGINGS SENT. VSS.
[2018-11-22 15:28] VITALS: BP 160/94
--- NOTE | 2018-11-22 15:30 | NUR ---
NURSE NOTES: I received report from ER nurseFabiana over the phone. Patient arraived the unit by kamini around 1508. Patient alert x4; IV Left AC flushes well; Patient is ambulatory; belonging list sign by receivng nurse and transporter from ER. Patient's cigarette and operations professional kept at the nurse station, will be given to patient upon discharge. Vitals taken upon arrival to the unit. Bed at lowest position, side rails up x2, breaks engaged. call light within reach. will keep monitoring.
--- NOTE | 2018-11-22 15:36 | GI Initial Consult Note ---
History of Present Illness General Date patient seen: Nov 22, 2018 Time patient seen: 15:31 Reason for Hospitalization: Lower Extremity Injury Referring physician: ANSELMO Reason for Consultation: PANCREATITIS Present Illness HPI 68-year-old male presents ED for evaluation. Complaining of left knee pain for the last week. States that he hears pops and clicks and believes that he "tore a ligament". Pain is throbbing, 8 out of 10, nonradiating. Is able to bear weight. Patient states he has been unsteady on his knee because he has been having problems with his hernia. Has bilateral inguinal hernias for many years now. States that they have "popped out" 2 weeks ago. Is unable to reduce them. Notes nausea, denies vomiting. States he is passing gas. Is having bowel movements. No other aggravating relieving factors. Denies any other associated symptoms GI reported for pancreatitis. Patient was seen, awake alert and oriented x4 no apparent distress with no active signs or symptoms of nausea or vomiting. According to the patient, he has a history of chronic pancreatitis which he was admitted in the past for similar conditions. He presents today with elevated lipase levels over 1000. Labs reviewed, no anemia, no transaminitis, no leukocytosis. In addition, the patient has complaint of his left knee and inguinal hernia. The patient has no history of endoscopic or colonoscopy. At this time the patient received pain medication, denies any abdominal pain, constipation, diarrhea or nausea vomiting. The patient also denies any use of alcohol, drugs, tobacco. Home Meds Active Scripts Ondansetron (Zofran) 4 Mg Tablet, 4 MG ORAL Q6H PRN for 14 Days, #30 TAB 0 Refills Prov:Carlos Goldman MD 06/14/18 Lisinopril* (LISINOPRIL*) 10 Mg Tablet, 10 MG ORAL DAILY for 30 Days, #30 TAB Prov:Carlos Goldman MD 06/14/18 Pantoprazole* (PROTONIX*) 40 Mg Tablet.dr, 40 MG ORAL DAILY for 30 Days, #30 TAB Prov:Carlos Goldman MD 06/14/18 Amlodipine Besylate (Norvasc) 10 Mg Tablet, 10 MG ORAL DAILY for 30 Days, #30 TAB Prov:Carlos Goldman MD 06/14/18 Reported Medications No Known Medications* (NKM - No Known Medications*) ., 0 ., 0 Refills 11/22/18 Med list reviewed/reconciled: Yes Allergies: Coded Allergies: KETOROLAC TROMETHAMINE (Verified Allergy, Mild, Hives, 06/08/16) AZITHROMYCIN (Unverified Allergy, Unknown, 06/13/18) ERYTHROMYCIN BASE (Verified Adverse Reaction, Mild, NAUSEA VOMITING, ) Uncoded Allergies: NSAIDS (Allergy, Unknown, 01/09/18) peptic ulcer Patient History History Provided By: Patient, Medical Record PMH Narrative Past Medical History: other - Inguinal hernia Past Surgical History: none Pertinent Family History: none Social History: Denies: smoking, alcohol use, drug use Immunizations: UTD Reviewed Nursing Documentation: PMH: Agreed; PSxH: Agreed Social History: Denies: smoking, alcohol use, drug use, other Review of Systems All Other Systems: negative except mentioned in HPI Physical Exam Vital Signs Date Time Temp Pulse Resp B/P (MAP) Pulse Ox O2 Delivery O2 Flow Rate FiO2 11/22/18 10:17 97.0 86 16 154/90 (111) 99 Room Air Sp02 EP Interpretation: reviewed, normal Labs Laboratory Tests Test 11/22/18 10:37 11/22/18 11:10 White Blood Count 4.9 K/UL (4.8-10.8) Red Blood Count 4.34 M/UL (4.70-6.10) L Hemoglobin 14.3 G/DL (14.2-18.0) Hematocrit 40.6 % (42.0-52.0) L Mean Corpuscular Volume 94 FL (80-99) Mean Corpuscular Hemoglobin 32.9 PG (27.0-31.0) H Mean Corpuscular Hemoglobin Concent 35.2 G/DL (32.0-36.0) Red Cell Distribution Width 10.7 % (11.6-14.8) L Platelet Count 242 K/UL (150-450) Mean Platelet Volume 5.7 FL (6.5-10.1) L Neutrophils (%) (Auto) 57.8 % (45.0-75.0) Lymphocytes (%) (Auto) 29.3 % (20.0-45.0) Monocytes (%) (Auto) 8.3 % (1.0-10.0) Eosinophils (%) (Auto) 2.9 % (0.0-3.0) Basophils (%) (Auto) 1.8 % (0.0-2.0) Sodium Level 141 MMOL/L (136-145) Potassium Level 4.5 MMOL/L (3.5-5.1) Chloride Level 105 MMOL/L (98-107) Carbon Dioxide Level 26 MMOL/L (21-32) Anion Gap 10 mmol/L (5-15) Blood Urea Nitrogen 23 mg/dL (7-18) H Creatinine 1.3 MG/DL (0.55-1.30) Estimat Glomerular Filtration Rate 54.6 mL/min (>60) Glucose Level 142 MG/DL (74-106) H Calcium Level 9.5 MG/DL (8.5-10.1) Total Bilirubin 0.9 MG/DL (0.2-1.0) Aspartate Amino Transf (AST/SGOT) 20 U/L (15-37) Alanine Aminotransferase (ALT/SGPT) 20 U/L (12-78) Alkaline Phosphatase 84 U/L (46-116) Total Protein 7.4 G/DL (6.4-8.2) Albumin 4.0 G/DL (3.4-5.0) Globulin 3.4 g/dL Albumin/Globulin Ratio 1.2 (1.0-2.7) Lipase 1120 U/L (73-393) H Urine Color Pale yellow Urine Appearance Clear Urine pH 6 (4.5-8.0) Urine Specific [place] 1.020 (1.005-1.035) Urine Protein Negative (NEGATIVE) Urine Glucose (UA) Negative (NEGATIVE) Urine Ketones Negative (NEGATIVE) Urine Blood Negative (NEGATIVE) Urine Nitrite Negative (NEGATIVE) Urine Bilirubin Negative (NEGATIVE) Urine Urobilinogen Normal MG/DL (0.0-1.0) Urine Leukocyte Esterase Negative (NEGATIVE) General Appearance: well appearing, no apparent distress, alert Head: normocephalic EENT: PERRL/EOMI, normal ENT inspection Neck: supple Respiratory: normal breath sounds, no respiratory distress Cardiovascular: normal rate Gastrointestinal: normal inspection, non tender, soft, normal bowel sounds, non -distended Rectal: deferred Genitourinary: deferred Musculoskeletal: normal inspection, back normal Neurologic: normal inspection, alert, oriented x3, responsive Psychiatric: normal inspection, judgement/insight normal, memory normal Skin: normal inspection, normal color, no rash, warm/dry, palpation normal, well hydrated Lymphatic: normal inspection, no adenopathy Current Medications Current Medications Medications (Trade) Dose Ordered Sig/Bernardo Route PRN Reason Start Time Stop Time Status Last Admin Dose Admin Acetaminophen (Tylenol) 650 mg Q4H PRN ORAL Mild Pain (Pain Scale 1-3) 11/22/18 13:30 12/22/18 13:29 Barium Sulfate (Readi-Cat 2) 450 ml NOW PRN ORAL Radiology Procedure 11/22/18 10:45 11/24/18 10:33 Dextrose (Dextrose 50%) 25 ml Q30M PRN IV Hypoglycemia 11/22/18 13:30 12/22/18 13:29 Dextrose (Dextrose 50%) 50 ml Q30M PRN IV Hypoglycemia 11/22/18 13:30 12/22/18 13:29 Heparin Sodium (Porcine) (Heparin 5000 units/ml) 5,000 units EVERY 12 HOURS SUBQ 11/22/18 21:00 12/22/18 20:59 Hydromorphone HCl (Dilaudid) 1 mg Q4H PRN IVP Moderate Pain (Pain Scale 4-6) 11/22/18 13:30 11/29/18 13:29 Hydromorphone HCl (Dilaudid) 2 mg Q4H PRN IVP Severe Pain (Pain Scale 7-10) 11/22/18 13:30 11/29/18 13:29 Iopamidol (Isovue-300 100ml) 100 ml NOW PRN INJ Radiology Procedure 11/22/18 10:45 Lactated Ringer's 1,000 ml @ 150 mls/hr Q6H40M IV 11/22/18 16:00 12/22/18 15:59 Ondansetron HCl (Zofran) 4 mg Q6H PRN IVP Nausea & Vomiting 11/22/18 13:30 12/22/18 13:29 GI: Plan Problems: (1) Inguinal hernia (2) Acute pancreatitis (3) Intractable nausea and vomiting (4) GERD (gastroesophageal reflux disease) (5) Abdominal pain Plan MRCP to rule out gallstone pancreatitis Obtain urine toxicity Medical management for acute pancreatitis Bowel rest, maintain n.p.o. plus IV fluids Pain management PPI Zofran as needed Follow-up labs, lipase levels, lipid panel Discussed with Dr. Miranda. Thank you for this patient referral, we will follow. The patient was seen and examined at bedside and all new and available data was reviewed in the patients chart. I agree with the above findings, impression and plan. (Patient seen earlier today. Signature stamp does not reflect patient encounter time.). - MD Tova OrozcoLa Paz Regional HospitalKeke WAREHOUSE SHIPPING ASSOCIATE Nov 22, 2018 15:36
[2018-11-22] MEDS ORDERED: Gadavist 7.5mMol/7.5ml vial IV PRN (15:45)
--- NOTE | 2018-11-22 15:50 | Diagnostic Imaging Report ---
Indication: Left knee pain Technique: 3 views of the left knee Comparison: None Findings: No acute fractures. No dislocations. The joint spaces are preserved. No suprapatellar effusion Impression: No acute bony trauma
--- NOTE | 2018-11-22 16:00 | Consultation ---
History of Present Illness General Date patient seen: Nov 22, 2018 Reason for Hospitalization: inguinal hernia Present Illness HPI 68M presented with knee pain and noted to have pancreatitis and bilateral inguinal hernias. hx of chronic pain, hx of knee pain and believes had torn ligament prior, history of prior pancreatitis. etiology unknown of pancreatitis. states has been wanting to fix hernias for some time now and has been advised prior to have them repaired. surgery called to evaluate and assist with care. patient seen, chart reviewed, patient examined. Allergies: Coded Allergies: KETOROLAC TROMETHAMINE (Verified Allergy, Mild, Hives, 06/08/16) AZITHROMYCIN (Unverified Allergy, Unknown, 06/13/18) ERYTHROMYCIN BASE (Verified Adverse Reaction, Mild, NAUSEA VOMITING, ) Uncoded Allergies: NSAIDS (Allergy, Unknown, 01/09/18) peptic ulcer Medication History Scheduled Amlodipine Besylate (Norvasc), 10 MG ORAL DAILY Lisinopril* (Lisinopril*), 10 MG ORAL DAILY No Known Medications* (NKM - No Known Medications*), 0 ., (Reported) Pantoprazole* (Protonix*), 40 MG ORAL DAILY Scheduled PRN Ondansetron (Zofran), 4 MG ORAL Q6H PRN Patient History History Provided By: Patient, PMD Healthcare decision maker Resuscitation status Advanced Directive on File Past Medical/Surgical History Past Medical/Surgical History: (1) [id number] (2) Kidney stones (3) dental infection (4) Kidney stones (5) Rt hand contusion (6) R/O occult fracture or ligament injury (7) Hand sprain (8) thumb tendonitis (9) Abdominal pain (10) Abdominal pain (11) Urolithiasis (12) Urolithiasis (13) Cervical stenosis of spine (14) Cervical stenosis of spine (15) Pancreatitis (16) Pancreatitis (17) Pancreatitis (18) Chronic abdominal pain (19) Chronic abdominal pain (20) Diarrhea (21) Opiate withdrawal (22) Back contusion (23) Finger fracture, left (24) Reduction defect of upper limb (25) Contusion of shoulder, left (26) Inguinal hernia (27) reducible hernia (28) Kidney stones (29) Acute coronary syndrome (30) Chest pain (31) Uncontrolled hypertension (32) Knee pain (33) Inguinal hernia (34) Acute pancreatitis (35) GERD (gastroesophageal reflux disease) (36) Abdominal pain (37) Intractable nausea and vomiting (38) [id number] Review of Systems Review of Symptoms General ROS: no weight loss or fever Psychological ROS: no depression or mood changes, no memory loss Ophthalmic ROS: no visual changes or eye irritation ENT ROS: no nasal congestion, hearing loss, dizziness Allergy and Immunology ROS: no allergic symptoms or urticaria Hematological and Lymphatic ROS: no swollen glands, unusual bleeding or bruising Endocrine ROS: no polyuria, polydipsia, weight changes, temperature intolerance Respiratory ROS: no cough, shortness of breath, or wheezing Cardiovascular ROS: no chest pain or dyspnea on exertion Gastrointestinal ROS: mild groin and abdominal pain, no bright red blood in stool. Musculoskeletal ROS: no myalgias or arthralgias Neurological ROS: no TIA or stroke symptoms Dermatological ROS: no new or changing skin lesions, rashes or pruritis Physical Exam Physical Exam General appearance: alert, cooperative, no distress, appears stated age Head: Normocephalic, without obvious abnormality, atraumatic Eyes: conjunctivae/corneas clear. PERRL, EOM's intact. Fundi benign Throat: Lips, mucosa, and tongue normal. Teeth and gums normal Neck: supple, symmetrical, trachea midline, no adenopathy, thyroid: not enlarged, symmetric, no tenderness/mass/nodules, no carotid bruit and no JVD Lungs: clear to auscultation bilaterally Heart: regular rate and rhythm, S1, S2 normal, no murmur, click, rub or gallop Abdomen: soft, non-tender. Bowel sounds normal. No masses, no organomegaly. bilateral inguinal hernia somewhat reducible. Extremities: extremities normal, atraumatic, no cyanosis or edema Pulses: 2+ and symmetric Skin: Skin color, texture, turgor normal. No rashes or lesions Neurologic: Grossly normal Last 24 Hour Vital Signs Date Time Temp Pulse Resp B/P (MAP) Pulse Ox O2 Delivery O2 Flow Rate FiO2 11/22/18 15:34 Room Air 11/22/18 15:28 97.9 72 18 160/94 (116) 99 11/22/18 15:03 97.3 1 18 142/80 100 Room Air 11/22/18 13:43 97.5 11/22/18 13:40 98.0 83 15 145/75 100 Room Air 11/22/18 11:38 97.5 75 17 147/86 100 Room Air 11/22/18 11:11 97.5 11/22/18 10:30 97.0 89 19 156/87 99 Room Air 11/22/18 10:17 97.0 86 16 154/90 (111) 99 Room Air Laboratory Tests Test 11/22/18 10:37 11/22/18 11:10 White Blood Count 4.9 K/UL (4.8-10.8) Red Blood Count 4.34 M/UL (4.70-6.10) L Hemoglobin 14.3 G/DL (14.2-18.0) Hematocrit 40.6 % (42.0-52.0) L Mean Corpuscular Volume 94 FL (80-99) Mean Corpuscular Hemoglobin 32.9 PG (27.0-31.0) H Mean Corpuscular Hemoglobin Concent 35.2 G/DL (32.0-36.0) Red Cell Distribution Width 10.7 % (11.6-14.8) L Platelet Count 242 K/UL (150-450) Mean Platelet Volume 5.7 FL (6.5-10.1) L Neutrophils (%) (Auto) 57.8 % (45.0-75.0) Lymphocytes (%) (Auto) 29.3 % (20.0-45.0) Monocytes (%) (Auto) 8.3 % (1.0-10.0) Eosinophils (%) (Auto) 2.9 % (0.0-3.0) Basophils (%) (Auto) 1.8 % (0.0-2.0) Sodium Level 141 MMOL/L (136-145) Potassium Level 4.5 MMOL/L (3.5-5.1) Chloride Level 105 MMOL/L (98-107) Carbon Dioxide Level 26 MMOL/L (21-32) Anion Gap 10 mmol/L (5-15) Blood Urea Nitrogen 23 mg/dL (7-18) H Creatinine 1.3 MG/DL (0.55-1.30) Estimat Glomerular Filtration Rate 54.6 mL/min (>60) Glucose Level 142 MG/DL (74-106) H Calcium Level 9.5 MG/DL (8.5-10.1) Total Bilirubin 0.9 MG/DL (0.2-1.0) Aspartate Amino Transf (AST/SGOT) 20 U/L (15-37) Alanine Aminotransferase (ALT/SGPT) 20 U/L (12-78) Alkaline Phosphatase 84 U/L (46-116) Total Protein 7.4 G/DL (6.4-8.2) Albumin 4.0 G/DL (3.4-5.0) Globulin 3.4 g/dL Albumin/Globulin Ratio 1.2 (1.0-2.7) Lipase 1120 U/L (73-393) H Urine Color Pale yellow Urine Appearance Clear Urine pH 6 (4.5-8.0) Urine Specific [place] 1.020 (1.005-1.035) Urine Protein Negative (NEGATIVE) Urine Glucose (UA) Negative (NEGATIVE) Urine Ketones Negative (NEGATIVE) Urine Blood Negative (NEGATIVE) Urine Nitrite Negative (NEGATIVE) Urine Bilirubin Negative (NEGATIVE) Urine Urobilinogen Normal MG/DL (0.0-1.0) Urine Leukocyte Esterase Negative (NEGATIVE) Height (Feet): 5 Height (Inches): 9.00 Weight (Pounds): 155 Medications Current Medications Medications (Trade) Dose Ordered Sig/Bernardo Route PRN Reason Start Time Stop Time Status Last Admin Dose Admin Acetaminophen (Tylenol) 650 mg Q4H PRN ORAL Mild Pain (Pain Scale 1-3) 11/22/18 13:30 12/22/18 13:29 Barium Sulfate (Readi-Cat 2) 450 ml NOW PRN ORAL Radiology Procedure 11/22/18 10:45 11/24/18 10:33 Dextrose (Dextrose 50%) 25 ml Q30M PRN IV Hypoglycemia 11/22/18 13:30 12/22/18 13:29 Dextrose (Dextrose 50%) 50 ml Q30M PRN IV Hypoglycemia 11/22/18 13:30 12/22/18 13:29 Gadobutrol (Gadavist) 7.5 mmol NOW PRN IV Radiology Procedure 11/22/18 15:45 11/26/18 15:36 Heparin Sodium (Porcine) (Heparin 5000 units/ml) 5,000 units EVERY 12 HOURS SUBQ 11/22/18 21:00 12/22/18 20:59 Hydromorphone HCl (Dilaudid) 1 mg Q4H PRN IVP Moderate Pain (Pain Scale 4-6) 11/22/18 13:30 11/29/18 13:29 Hydromorphone HCl (Dilaudid) 2 mg Q4H PRN IVP Severe Pain (Pain Scale 7-10) 11/22/18 13:30 11/29/18 13:29 Iopamidol (Isovue-300 100ml) 100 ml NOW PRN INJ Radiology Procedure 11/22/18 10:45 Lactated Ringer's 1,000 ml @ 150 mls/hr Q6H40M IV 11/22/18 16:00 12/22/18 15:59 Ondansetron HCl (Zofran) 4 mg Q6H PRN IVP Nausea & Vomiting 11/22/18 13:30 12/22/18 13:29 Assessment/Plan Problem List: (1) Inguinal hernia (2) Acute pancreatitis Assessment & Plan: etiology unknown. prior episode currently clinically okay okay for diet trend labs will follow with exams thank you ICD Codes: K85.90 - Acute pancreatitis without necrosis or infection, unspecified SNOMED: 208148507 Qualifiers: Qualified Codes: K85.90 - Acute pancreatitis without necrosis or infection, unspecified (3) Abdominal pain ICD Codes: R10.9 - Unspecified abdominal pain SNOMED: 26850166 (4) Inguinal hernia Assessment & Plan: Impression: Limited assessment of the GI tract, due to lack of enteric contrast administration. No definite acute abnormality Small direct right inguinal hernia, containing a loop of small bowel again demonstrated. No evidence of obstruction or strangulation Small fat-containing left inguinal hernia and the edge of the sigmoid colon Subcentimeter low-attenuation liver lesions, too small to characterize, most likely benign simple cysts or bile hamartomas. No further follow-up necessary Bilateral subcentimeter nonobstructive renal calyceal calculi, also previously reported 2 bladder calculi are present. Previously there were 4 Other findings as noted, including lumbar scoliotic deformity, right basilar pulmonary parenchymal scarring, right scrotal hydrocele, right scrotal calcification, left renal cysts somewhat reducible plan for outpatient elective bilateral inguinal hernia repair soon discussed with patient ICD Codes: K40.90 - Unilateral inguinal hernia, without obstruction or gangrene , not specified as recurrent SNOMED: 807805359 (5) Pancreatitis ICD Codes: K85.9 - Acute pancreatitis, unspecified SNOMED: 07087714 (6) Abdominal pain ICD Codes: R10.9 - Unspecified abdominal pain SNOMED: 98388187 Tamir Ortiz Nov 22, 2018 16:00
[2018-11-22] MEDS: LR 1000ml 1,000 ML IV SCH (17:05)
--- NOTE | 2018-11-22 17:21 | Diagnostic Imaging Report ---
Indication: Abdominal pain Technique: Reyes-scale and duplex images of the upper abdomen were obtained. Doppler interrogation of the pancreatic and hepatic vessels Comparison: CT abdomen and pelvis of earlier the same day Findings: Gallbladder is unremarkable, without stones, wall thickening, nor pericholecystic fluid. Sonographic Gibsno's sign is negative. Common bile duct measures 7 mm in diameter. No intrahepatic biliary ductal dilatation. Liver demonstrates normal echogenicity, no focal abnormality. Portal vein and hepatic veins are patent. Pancreas is obscured by bowel gas. Spleen is unremarkable. Left kidney measures 10.8 cm in length. Right kidney measures 9.8 cm length. Both kidneys demonstrate normal echogenicity. There is no hydronephrosis. There are bilateral intrarenal calculi demonstrated, also noted on recent CT scan. There is also a left renal cyst noted. Abdominal aorta is partially obscured by bowel gas, visualized portions are non-aneurysmal . Impression: Negative for gallstones Ectatic common bile duct. Probably related to age, and correlation with liver function tests is recommended Nonobstructive bilateral intrarenal calculi, also demonstrated on recent CT scan Left renal cyst Note nonvisualization of the pancreas, incomplete visualization of the abdominal aorta
--- NOTE | 2018-11-22 19:41 | NUR ---
HAND-OFF: Report given to Joseph/Zoë/RN.
--- NOTE | 2018-11-22 19:50 | NUR ---
NURSE NOTES: Received patient laying on the bed comfortably. Patient is alert, awake, and oriented x4. Patient verbalized free of pain during the handoff. Patient is breathing unlabored and evenly without signs of discomfort or distress. Patient's bed is kept at the lowest level, two side rails up, and with breaks on. Call light was place within reach for any assistance needed. Will continue to monitor.
[2018-11-22 20:00] VITALS: BP 152/88
[2018-11-22] MEDS: Heparin 5000 units/ml inj SUBQ SCH (21:31)
[2018-11-22] MEDS: Oxymetazoline 0.05% Na Spray 30ml NASAL PRN (23:29)
[2018-11-23] VITALS: BP 139/78
[2018-11-23] MEDS: LR 1000ml 1,000 ML IV SCH ×4 (00:10→21:00)
[2018-11-23 04:00] VITALS: BP 120/73
[2018-11-23 04:54] LABS: EOSINOPHILS % (AUTO) 3.3 % (0.0-3.0); HEMOGLOBIN 13.1 G/DL (14.2-18.0); LYMPHOCYTES % (AUTO) 29.2 % (20.0-45.0); MEAN CORPUSCULAR VOLUME 94 FL (80-99); MONOCYTES % (AUTO) 6.6 % (1.0-10.0); NEUTROPHILS % (AUTO) 58.9 % (45.0-75.0); PLATELET COUNT 227 K/UL (150-450); RED BLOOD COUNT 3.95 M/UL (4.70-6.10); RED CELL DISTRIBUTION WIDTH 10.6 % (11.6-14.8); WHITE BLOOD COUNT 5.2 K/UL (4.8-10.8)
[2018-11-23 05:12] LABS: ANION GAP 9 mmol/L (5-15); BLOOD UREA NITROGEN 18 mg/dL (7-18); CALCIUM 9.8 MG/DL (8.5-10.1); CARBON DIOXIDE 29 MMOL/L (21-32); CHLORIDE 103 MMOL/L (98-107); CREATININE 1.1 MG/DL (0.55-1.30); SODIUM 141 MMOL/L (136-145)
[2018-11-23 05:21] LABS: ALANINE AMINOTRANSFERASE 17 U/L (12-78); ALBUMIN 4.1 G/DL (3.4-5.0); ALBUMIN/GLOBULIN RATIO 1.5 (1.0-2.7); ALKALINE PHOSPHATASE 85 U/L (46-116); ASPARTATE AMINO TRANSFERASE 20 U/L (15-37); BILIRUBIN,TOTAL 1.7 MG/DL (0.2-1.0); CHOLESTEROL 227 MG/DL (< 200); HDL CHOLESTEROL 63 MG/DL (40-60); TRIGLYCERIDES 93 MG/DL (30-150)
[2018-11-23 05:30] LABS: BILIRUBIN,DIRECT 0.2 MG/DL (0.0-0.3)
--- NOTE | 2018-11-23 07:16 | NUR ---
HAND-OFF: Report given to ADRIANA Londono.
--- NOTE | 2018-11-23 07:29 | NUR ---
NURSE NOTES: Patient alert x4, on room air, no sign of distress and shortness of breath; no sign of chest pain; IV Left AC Lactated Ringer running @150cc; patient states that he doesn't want to be NPO any more, I explained that patient scheduled for MRI ABD; MD Huang spoke to patient at the bed side; side rails up x2, breaks engaged, bed at lowest position; urinal within reach; call light within reach; will keep monitoring.
--- NOTE | 2018-11-23 07:53 | NUR ---
NURSE NOTES: Patient's BP 172/87, I communicated MD Soler. Waiting for order.
--- NOTE | 2018-11-23 07:59 | NUR ---
NURSE NOTES: Patient left the floor for MRI ABD by wheel chair.
[2018-11-23 08:00] VITALS: BP 172/87
--- NOTE | 2018-11-23 08:10 | General Progress Note ---
Advance Care Planning Advance Care Planning Advance Care Planning [facility] An independent Hospitalist group, where every patient is our [facility] Internal Medicine Hospitalist Advanced Care Planning Note Please contact us at Date of Discussion: A [id number] discussion with the Patient regarding the patient's advanced care planning took place during this hospitalization on the above date. The discussion included the explanation and discussion of advance directives and associated forms/documents, as well as the patient's current code status. We also discussed at length the patient's medical conditions (both acute and chronic), general prognosis, treatment options, and goals of care. The following summarizes the discussion: Advance Care Planning/Goals of Care: - Will attempt to fill out an AD and/or POLST with the patient prior to discharge, if not already completed - Continue current evaluation and management of any acute and chronic medical issues - Will continue to support the patient/family - Will continue to discuss both short- and long-term goals of care DPOA-HC/Surrogate Decision Maker: None currently appointed Code Status: Full Code Advanced Care Planning Forms/Documents Completed: Deferred until later encounter/visit A total of 17 minutes was spent on this discussion, including counseling, answering questions, and completing, if any, pertinent advanced care planning forms/documents. Time of note may not reflect time of encounter. Saqib Vang MD Nov 23, 2018 08:10
--- NOTE | 2018-11-23 08:25 | NUR ---
NURSE NOTES: I received a call from pharmacy, Lisa, regarding the medication MD Soler put, Hydralazine IV 10 mg Q4H for PRN; Lisa said we can't given IV Hydralazine at med-surge unit. Amando said Enalaprilat is the IV BP medication we can give. I communicated MD Soler regarding the matter. Waiting order.
[2018-11-23] MEDS: Heparin 5000 units/ml inj SUBQ SCH ×2 (09:00→20:59)
--- NOTE | 2018-11-23 09:23 | NUR ---
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 KNEE PAIN . INGUINAL HERNIA VS: BP 154/90, P 86, T 97.0, RR 16, SpO2 99 RBC 4.34, Hct 32.9, BUN 23, GLUCOSE 142, LIPASE [address]:Small direct right inguinal hernia, containing a loop of small bowel. IS:NS 500ml IV MORPHINE SULFATE 4mg IVP ADMITTED TO MED/SURG DCP: RETURN HOME
--- NOTE | 2018-11-23 10:05 | NUR ---
MRCP AND LEFT KNEE MRI COMPLETED. TJB
--- NOTE | 2018-11-23 10:05 | NUR ---
PT EVALUATION NOTE Patient seen for initial evaluation, see complete evaluation for details. Patient presents with impaired ability to complete transfers and to ambulate due to L knee pain and weakness. Patient ambulates with antalgic gait pattern and has some difficulty with sit <-> stand transitional tasks due to L knee pain. Patient will benefit from skilled inpatient PT intervention to address strength, balance and functional mobility. Anticipate discharge home once medically cleared by MD. No DME needs anticipated at this time. May benefit from OP PT follow up after discharge to address L knee pain. Addendum: 11/23/18 at 1115 by RUTH SALGADO PT Amended: Links added.
--- NOTE | 2018-11-23 10:25 | GI Progress Note ---
Assessment/Plan Problems: (1) Abdominal pain ICD Codes: R10.9 - Unspecified abdominal pain SNOMED: 80248985 (2) Acute pancreatitis ICD Codes: K85.90 - Acute pancreatitis without necrosis or infection, unspecified SNOMED: 216188695 Qualifiers: Qualified Codes: K85.90 - Acute pancreatitis without necrosis or infection, unspecified (3) GERD (gastroesophageal reflux disease) ICD Codes: K21.9 - Gastro-esophageal reflux disease without esophagitis SNOMED: 782733857 (4) Pancreatitis ICD Codes: K85.9 - Acute pancreatitis, unspecified SNOMED: 30776861 Status: stable Status Narrative Discussed with Dr. Miranda Assessment/Plan Pancreatitis -Triglyceride level is within normal limits -Lipase level downtrending -MRCP taken, pending final read -U tox uncollected Clear liquid diet, advance as tolerated Pain management PPI Zofran as needed follow labs The patient was seen and examined at bedside and all new and available data was reviewed in the patients chart. I agree with the above findings, impression and plan. (Patient seen earlier today. Signature stamp does not reflect patient encounter time.). - Manuel Miranda MD Subjective Subjective Abdominal pain minimal Wishes to be discharged Objective Last 24 Hour Vital Signs Date Time Temp Pulse Resp B/P (MAP) Pulse Ox O2 Delivery O2 Flow Rate FiO2 11/23/18 08:00 97.5 73 18 172/87 (115) 99 11/23/18 04:00 98.0 63 20 120/73 (89) 99 11/23/18 00:00 97.3 64 20 139/78 (98) 99 11/22/18 21:00 Room Air 11/22/18 20:00 97.2 62 20 152/88 (109) 99 11/22/18 17:29 97.9 11/22/18 15:34 Room Air 11/22/18 15:28 97.9 72 18 160/94 (116) 99 11/22/18 15:03 97.3 1 18 142/80 100 Room Air 11/22/18 13:43 97.5 11/22/18 13:40 98.0 83 15 145/75 100 Room Air 11/22/18 11:38 97.5 75 17 147/86 100 Room Air 11/22/18 11:11 97.5 11/22/18 10:30 97.0 89 19 156/87 99 Room Air Intake and Output 11/22/18 11/23/18 19:00 07:00 Intake Total 650 ml 1730 ml Output Total 700 ml Balance 650 ml 1030 ml Intake IV Total 650 ml 1730 ml Output Urine Total 700 ml # Voids 1 Laboratory Tests Test 11/22/18 10:37 11/22/18 11:10 11/23/18 04:35 White Blood Count 4.9 K/UL (4.8-10.8) 5.2 K/UL (4.8-10.8) Red Blood Count 4.34 M/UL (4.70-6.10) L 3.95 M/UL (4.70-6.10) L Hemoglobin 14.3 G/DL (14.2-18.0) 13.1 G/DL (14.2-18.0) L Hematocrit 40.6 % (42.0-52.0) L 37.0 % (42.0-52.0) L Mean Corpuscular Volume 94 FL (80-99) 94 FL (80-99) Mean Corpuscular Hemoglobin 32.9 PG (27.0-31.0) H 33.3 PG (27.0-31.0) H Mean Corpuscular Hemoglobin Concent 35.2 G/DL (32.0-36.0) 35.5 G/DL (32.0-36.0) Red Cell Distribution Width 10.7 % (11.6-14.8) L 10.6 % (11.6-14.8) L Platelet Count 242 K/UL (150-450) 227 K/UL (150-450) Mean Platelet Volume 5.7 FL (6.5-10.1) L 6.1 FL (6.5-10.1) L Neutrophils (%) (Auto) 57.8 % (45.0-75.0) 58.9 % (45.0-75.0) Lymphocytes (%) (Auto) 29.3 % (20.0-45.0) 29.2 % (20.0-45.0) Monocytes (%) (Auto) 8.3 % (1.0-10.0) 6.6 % (1.0-10.0) Eosinophils (%) (Auto) 2.9 % (0.0-3.0) 3.3 % (0.0-3.0) H Basophils (%) (Auto) 1.8 % (0.0-2.0) 2.0 % (0.0-2.0) Sodium Level 141 MMOL/L (136-145) 141 MMOL/L (136-145) Potassium Level 4.5 MMOL/L (3.5-5.1) 4.0 MMOL/L (3.5-5.1) Chloride Level 105 MMOL/L (98-107) 103 MMOL/L (98-107) Carbon Dioxide Level 26 MMOL/L (21-32) 29 MMOL/L (21-32) Anion Gap 10 mmol/L (5-15) 9 mmol/L (5-15) Blood Urea Nitrogen 23 mg/dL (7-18) H 18 mg/dL (7-18) Creatinine 1.3 MG/DL (0.55-1.30) 1.1 MG/DL (0.55-1.30) Estimat Glomerular Filtration Rate 54.6 mL/min (>60) > 60 mL/min (>60) Glucose Level 142 MG/DL (74-106) H 109 MG/DL (74-106) H Calcium Level 9.5 MG/DL (8.5-10.1) 9.8 MG/DL (8.5-10.1) Total Bilirubin 0.9 MG/DL (0.2-1.0) 1.7 MG/DL (0.2-1.0) H Aspartate Amino Transf (AST/SGOT) 20 U/L (15-37) 20 U/L (15-37) Alanine Aminotransferase (ALT/SGPT) 20 U/L (12-78) 17 U/L (12-78) Alkaline Phosphatase 84 U/L (46-116) 85 U/L (46-116) Total Protein 7.4 G/DL (6.4-8.2) 6.9 G/DL (6.4-8.2) Albumin 4.0 G/DL (3.4-5.0) 4.1 G/DL (3.4-5.0) Globulin 3.4 g/dL 2.8 g/dL Albumin/Globulin Ratio 1.2 (1.0-2.7) 1.5 (1.0-2.7) Lipase 1120 U/L (73-393) H 466 U/L (73-393) H Urine Color Pale yellow Urine Appearance Clear Urine pH 6 (4.5-8.0) Urine Specific [place] 1.020 (1.005-1.035) Urine Protein Negative (NEGATIVE) Urine Glucose (UA) Negative (NEGATIVE) Urine Ketones Negative (NEGATIVE) Urine Blood Negative (NEGATIVE) Urine Nitrite Negative (NEGATIVE) Urine Bilirubin Negative (NEGATIVE) Urine Urobilinogen Normal MG/DL (0.0-1.0) Urine Leukocyte Esterase Negative (NEGATIVE) Direct Bilirubin 0.2 MG/DL (0.0-0.3) Triglycerides Level 93 MG/DL (30-150) Cholesterol Level 227 MG/DL (< 200) H LDL Cholesterol 144 mg/dL (<100) H HDL Cholesterol 63 MG/DL (40-60) H Cholesterol/HDL Ratio 3.6 (3.3-4.4) Amylase Level 134 U/L (25-115) H Height (Feet): 5 Height (Inches): 9.00 Weight (Pounds): 155 General Appearance: WD/WN, no apparent distress, alert Cardiovascular: normal rate Respiratory/Chest: normal breath sounds, no respiratory distress Abdominal Exam: normal bowel sounds, non tender, soft Extremities: normal range of motion, non-tender Veronica Bernardo NP Nov 23, 2018 10:25
--- NOTE | 2018-11-23 10:30 | General Progress Note ---
Assessment/Plan Status: stable Assessment/Plan: 68 year old man with HTN, chronic neck pain, history of right sided inguinal hernia repair who presents with #Possible acute pancreatitis, symptoms and lipase level improved -continue inpatient care -NPO, possible trial of clears today -IVF with LR -IV Dilaudid and Zofran prn -CT A/P reviewed -US Abd reviewed -lipid panel reviewed #Bilateral inguinal hernias, no evidence of incarceration or bowel obstruction -Surgery eval appreciated -Possible surgical hernia repair next week. #Left knee pain and gait instability -PT eval pending -Check MRI left knee #history of HTN, not on meds as outpatient -start amlodipine VTE PPx Heparin Full Code I spent 70 minutes on this patient's case, and 35 minutes was dedicated to counseling and/or care coordination. Subjective Date patient seen: Nov 23, 2018 Time patient seen: 07:45 ROS Limited/Unobtainable: No Constitutional: Denies: chills, fever Respiratory: Denies: cough Gastrointestinal/Abdominal: Denies: abdomen distended, abdominal pain Genitourinary: Denies: burning, frequency Neurologic/Psychiatric: Denies: anxiety Allergies: Coded Allergies: KETOROLAC TROMETHAMINE (Verified Allergy, Mild, Hives, 06/08/16) AZITHROMYCIN (Unverified Allergy, Unknown, 06/13/18) ERYTHROMYCIN BASE (Verified Adverse Reaction, Mild, NAUSEA VOMITING, ) Uncoded Allergies: NSAIDS (Allergy, Unknown, 01/09/18) peptic ulcer Subjective Follow up for acute pancreatitis, gait instability and left knee pain, bilateral inguinal hernias. Denies any nausea, vomiting or abdominal pain Objective Last 24 Hour Vital Signs Date Time Temp Pulse Resp B/P (MAP) Pulse Ox O2 Delivery O2 Flow Rate FiO2 11/23/18 08:00 97.5 73 18 172/87 (115) 99 11/23/18 04:00 98.0 63 20 120/73 (89) 99 11/23/18 00:00 97.3 64 20 139/78 (98) 99 11/22/18 21:00 Room Air 11/22/18 20:00 97.2 62 20 152/88 (109) 99 11/22/18 17:29 97.9 11/22/18 15:34 Room Air 11/22/18 15:28 97.9 72 18 160/94 (116) 99 11/22/18 15:03 97.3 1 18 142/80 100 Room Air 11/22/18 13:43 97.5 11/22/18 13:40 98.0 83 15 145/75 100 Room Air 11/22/18 11:38 97.5 75 17 147/86 100 Room Air 11/22/18 11:11 97.5 11/22/18 10:30 97.0 89 19 156/87 99 Room Air Intake and Output 11/22/18 11/23/18 19:00 07:00 Intake Total 650 ml 1730 ml Output Total 700 ml Balance 650 ml 1030 ml Intake IV Total 650 ml 1730 ml Output Urine Total 700 ml # Voids 1 Laboratory Tests 11/22/18 10:37: White Blood Count 4.9, Red Blood Count 4.34L, Hemoglobin 14.3, Hematocrit 40.6L , Mean Corpuscular Volume 94, Mean Corpuscular Hemoglobin 32.9H, Mean Corpuscular Hemoglobin Concent 35.2, Red Cell Distribution Width 10.7L, Platelet Count 242, Mean Platelet Volume 5.7L, Neutrophils (%) (Auto) 57.8, Lymphocytes (%) (Auto) 29.3, Monocytes (%) (Auto) 8.3, Eosinophils (%) (Auto) 2.9, Basophils (%) (Auto) 1.8, Sodium Level 141, Potassium Level 4.5, Chloride Level 105, Carbon Dioxide Level 26, Anion Gap 10, Blood Urea Nitrogen 23H, Creatinine 1.3, Estimat Glomerular Filtration Rate 54.6, Glucose Level 142H, Calcium Level 9.5, Total Bilirubin 0.9, Aspartate Amino Transf (AST/SGOT) 20, Alanine Aminotransferase (ALT/SGPT) 20, Alkaline Phosphatase 84, Total Protein 7.4, Albumin 4.0, Globulin 3.4, Albumin/Globulin Ratio 1.2, Lipase 1120H 11/22/18 11:10: Urine Color Pale yellow, Urine Appearance Clear, Urine pH 6, Urine Specific [place] 1.020, Urine Protein Negative, Urine Glucose (UA) Negative, Urine Ketones Negative, Urine Blood Negative, Urine Nitrite Negative, Urine Bilirubin Negative, Urine Urobilinogen Normal, Urine Leukocyte Esterase Negative 11/23/18 04:35: White Blood Count 5.2, Red Blood Count 3.95L, Hemoglobin 13.1L, Hematocrit 37.0L , Mean Corpuscular Volume 94, Mean Corpuscular Hemoglobin 33.3H, Mean Corpuscular Hemoglobin Concent 35.5, Red Cell Distribution Width 10.6L, Platelet Count 227, Mean Platelet Volume 6.1L, Neutrophils (%) (Auto) 58.9, Lymphocytes (%) (Auto) 29.2, Monocytes (%) (Auto) 6.6, Eosinophils (%) (Auto) 3.3H, Basophils (%) (Auto) 2.0, Sodium Level 141, Potassium Level 4.0, Chloride Level 103, Carbon Dioxide Level 29, Anion Gap 9, Blood Urea Nitrogen 18, Creatinine 1.1, Estimat Glomerular Filtration Rate > 60, Glucose Level 109H, Calcium Level 9.8, Total Bilirubin 1.7H, Aspartate Amino Transf (AST/SGOT) 20, Alanine Aminotransferase (ALT/SGPT) 17, Alkaline Phosphatase 85, Total Protein 6.9, Albumin 4.1, Globulin 2.8, Albumin/Globulin Ratio 1.5, Lipase 466H, Direct Bilirubin 0.2, Triglycerides Level 93, Cholesterol Level 227H, LDL Cholesterol 144H, HDL Cholesterol 63H, Cholesterol/HDL Ratio 3.6, Amylase Level 134H Height (Feet): 5 Height (Inches): 9.00 Weight (Pounds): 155 General Appearance: no apparent distress, alert EENT: PERRL/EOMI Neck: normal alignment, supple Cardiovascular: normal rate, regular rhythm Respiratory/Chest: lungs clear, normal breath sounds, no respiratory distress Abdomen: non tender, soft, no organomegaly Saqib Vang MD Nov 23, 2018 10:30
[2018-11-23 12:00] VITALS: BP 144/85
--- NOTE | 2018-11-23 12:28 | Diagnostic Imaging Report ---
Indication: History of chronic pancreatitis, abdominal pain, dilated common bile duct on recent cross-sectional imaging Technique: Coronal and axial single shot fast spin-echo breath-hold, axial T2 FRFSE, 2-D thick slab MRCP, AXIAL 2-D FIESTA fat saturated, axial 3-D dual echo breath-hold, water weighted axial LAVA FLEX, revealed 3-D MRCP images were obtained of the abdomen. MIP reconstructions were generated of the bile ducts Comparison: Abdominal ultrasound and CT scan dated 11/22/2018 Findings: No evidence of gallstones. No gallbladder wall thickening or pericholecystic fluid. The common hepatic duct and common bile duct are dilated, measuring up to 11 mm in diameter. This is more striking than is evident on recent CT or ultrasound. The downstream common bile duct tapers abruptly at the ampulla. No definite filling defects or stricture demonstrated. The pancreatic duct is ectatic, measuring 4 mm in diameter. It retains its caliber all the way to the ampulla. No pancreatic or peripancreatic edema is demonstrated. The pancreatic parenchyma appears unremarkable. The liver demonstrates a few tiny cysts, some of which are evident on earlier CT lesions are evident. The spleen, adrenals, right kidney are unremarkable. Multiple cysts are seen in the left kidney. There is lumbar scoliosis and likely areas of spinal stenosis, possibly significant. Subtle filling defects in the bladder correspond to bladder calculi demonstrated on recent CT scan. The prostate is prominent. Impression: Dilated extra hepatic bile ducts. No definite obstructive lesion demonstrated. Suspect baseline for this patient, as similar findings are demonstrated on multiple prior CT scans. Downstream obstruction at the level of the ampulla not completely excludable, however. No evidence of choledocholithiasis Normal gallbladder Ectatic pancreatic duct. No evidence of obstructive lesion No evidence of acute pancreatitis Degenerative spondylosis and scoliosis, possible significant spinal stenosis Incidental finding of hepatic and left renal cysts, degenerative spondylosis
--- NOTE | 2018-11-23 12:30 | Surgery Progress Note ---
Surgery Progress Note Subjective Additional Comments Patient seen and examined at bedside. States he feels much better. No nausea vomiting fever chills. No abdominal pain. No complaints. Laboratory data identified improvement in lipase. Ultrasound otherwise benign without gallstones. Objective Last 24 Hour Vital Signs Date Time Temp Pulse Resp B/P (MAP) Pulse Ox O2 Delivery O2 Flow Rate FiO2 11/23/18 10:43 97.5 11/23/18 10:42 73 172/87 11/23/18 09:00 Room Air 11/23/18 08:00 97.5 73 18 172/87 (115) 99 11/23/18 04:00 98.0 63 20 120/73 (89) 99 11/23/18 00:00 97.3 64 20 139/78 (98) 99 11/22/18 21:00 Room Air 11/22/18 20:00 97.2 62 20 152/88 (109) 99 11/22/18 17:29 97.9 11/22/18 15:34 Room Air 11/22/18 15:28 97.9 72 18 160/94 (116) 99 11/22/18 15:03 97.3 1 18 142/80 100 Room Air 11/22/18 13:43 97.5 11/22/18 13:40 98.0 83 15 145/75 100 Room Air I&O Intake and Output 11/22/18 11/23/18 19:00 07:00 Intake Total 650 ml 1730 ml Output Total 700 ml Balance 650 ml 1030 ml Intake IV Total 650 ml 1730 ml Output Urine Total 700 ml # Voids 1 Cardiovascular: RSR Respiratory: clear Abdomen: soft, flat, non-tender, present bowel sounds, other - Inguinal hernia is reducible, non-distended Extremities: no edema, no tenderness, no cyanosis Laboratory Tests Test 11/23/18 04:35 White Blood Count 5.2 K/UL (4.8-10.8) Red Blood Count 3.95 M/UL (4.70-6.10) L Hemoglobin 13.1 G/DL (14.2-18.0) L Hematocrit 37.0 % (42.0-52.0) L Mean Corpuscular Volume 94 FL (80-99) Mean Corpuscular Hemoglobin 33.3 PG (27.0-31.0) H Mean Corpuscular Hemoglobin Concent 35.5 G/DL (32.0-36.0) Red Cell Distribution Width 10.6 % (11.6-14.8) L Platelet Count 227 K/UL (150-450) Mean Platelet Volume 6.1 FL (6.5-10.1) L Neutrophils (%) (Auto) 58.9 % (45.0-75.0) Lymphocytes (%) (Auto) 29.2 % (20.0-45.0) Monocytes (%) (Auto) 6.6 % (1.0-10.0) Eosinophils (%) (Auto) 3.3 % (0.0-3.0) H Basophils (%) (Auto) 2.0 % (0.0-2.0) Sodium Level 141 MMOL/L (136-145) Potassium Level 4.0 MMOL/L (3.5-5.1) Chloride Level 103 MMOL/L (98-107) Carbon Dioxide Level 29 MMOL/L (21-32) Anion Gap 9 mmol/L (5-15) Blood Urea Nitrogen 18 mg/dL (7-18) Creatinine 1.1 MG/DL (0.55-1.30) Estimat Glomerular Filtration Rate > 60 mL/min (>60) Glucose Level 109 MG/DL (74-106) H Calcium Level 9.8 MG/DL (8.5-10.1) Total Bilirubin 1.7 MG/DL (0.2-1.0) H Direct Bilirubin 0.2 MG/DL (0.0-0.3) Aspartate Amino Transf (AST/SGOT) 20 U/L (15-37) Alanine Aminotransferase (ALT/SGPT) 17 U/L (12-78) Alkaline Phosphatase 85 U/L (46-116) Total Protein 6.9 G/DL (6.4-8.2) Albumin 4.1 G/DL (3.4-5.0) Globulin 2.8 g/dL Albumin/Globulin Ratio 1.5 (1.0-2.7) Triglycerides Level 93 MG/DL (30-150) Cholesterol Level 227 MG/DL (< 200) H LDL Cholesterol 144 mg/dL (<100) H HDL Cholesterol 63 MG/DL (40-60) H Cholesterol/HDL Ratio 3.6 (3.3-4.4) Amylase Level 134 U/L (25-115) H Lipase 466 U/L (73-393) H Plan Problems: (1) Inguinal hernia (2) Acute pancreatitis Assessment & Plan: etiology unknown. prior episode currently clinically okay Resolving lipase in the 400s today We will continue to monitor Discussed with patient denies EtOH abuse Lipids okay for diet trend labs will follow with exams thank you (3) Abdominal pain Assessment & Plan: Resolved (4) Inguinal hernia Assessment & Plan: Impression: Limited assessment of the GI tract, due to lack of enteric contrast administration. No definite acute abnormality Small direct right inguinal hernia, containing a loop of small bowel again demonstrated. No evidence of obstruction or strangulation Small fat-containing left inguinal hernia and the edge of the sigmoid colon Subcentimeter low-attenuation liver lesions, too small to characterize, most likely benign simple cysts or bile hamartomas. No further follow-up necessary Bilateral subcentimeter nonobstructive renal calyceal calculi, also previously reported 2 bladder calculi are present. Previously there were 4 Other findings as noted, including lumbar scoliotic deformity, right basilar pulmonary parenchymal scarring, right scrotal hydrocele, right scrotal calcification, left renal cysts somewhat reducible plan for outpatient elective bilateral inguinal hernia repair soon discussed with patient (5) Pancreatitis (6) Abdominal pain Tamir Ortiz Nov 23, 2018 12:30
--- NOTE | 2018-11-23 15:34 | Diagnostic Imaging Report ---
Indication: Pain, gait instability Technique: Axial, sagittal, coronal proton-density fat-saturated, sagittal proton density, coronal T1, coronal STIR images obtained of the knee Comparison: Reference made to plain radiograph of the previous day Findings: Increased signal is seen in the medial tibial plateau marrow space on the proton density images and STIR, with decreased signal on the T1-weighted images. No definite cortical disruption. Marrow signal elsewhere is normal. Abnormal signal is seen in the medial aspect of the posterior horn of the medial meniscus, compatible with a complex tear. The lateral meniscus is unremarkable. The anterior cruciate, posterior cruciate, medial collateral ligament, lateral collateral ligament complex are all unremarkable. Normal cartilage thickness. An obliquely oriented area of abnormal increased T2 and decreased T1 signal is seen in the lateral aspect of the patella. There is no associated underlying marrow edema. No significant joint effusion is demonstrated Impression: Findings compatible with complex tear of the posterior horn of the medial meniscus Abnormal signal in the lateral tibial plateau, without evidence of overlying cortical destruction. This is compatible with a bone bruise Oblique signal abnormality through the lateral aspect of the patella. Most likely represents an unfused lateral apophysis, but could also indicate an old fracture. No evidence of associated acute bony trauma This agrees with the preliminary report provided by Dr. Figueroa
[2018-11-23 16:00] VITALS: BP 167/88
[2018-11-23] MEDS: Oxymetazoline 0.05% Na Spray 30ml NASAL PRN (18:14)
--- NOTE | 2018-11-23 19:34 | NUR ---
NURSE NOTES: Previous bag of LR is still running, I didn't hung the 1840 scheduled bag. I endorsed PM RN, Minsu to hung the LR bag.
--- NOTE | 2018-11-23 19:35 | NUR ---
HAND-OFF: Report given to Joseph/Zoë/JUAN FRANCISCO.
--- NOTE | 2018-11-23 19:41 | NUR ---
NURSE NOTES: Received patient sitting on the bed. Patient is alert, awake, and oriented x 4. Breathing unlabored and evenly without signs of distress or SOB. Patient skin is warm to touch and intact. No new skin condition noted during the handoff. IV on the left AC is running LR 150 cc/hr. IV dressing is intact, dry, and clean.Patient bed is paced at the lowest level with HOB elevated to semi-fowlers, bed alarm on, and brakes on. Call light placed within reach. Will continue to monitor.
[2018-11-23 20:00] VITALS: BP 145/78
[2018-11-24] VITALS: BP 118/69
[2018-11-24] MEDS: LR 1000ml 1,000 ML IV SCH ×2 (01:20→03:42)
[2018-11-24 04:00] VITALS: BP 123/71
[2018-11-24 06:25] LABS: BASOPHILS % (AUTO) 1.9 % (0.0-2.0); HEMATOCRIT 35.1 % (42.0-52.0); HEMOGLOBIN 12.6 G/DL (14.2-18.0); LYMPHOCYTES % (AUTO) 32.9 % (20.0-45.0); MEAN CORPUSCULAR VOLUME 93 FL (80-99); MONOCYTES % (AUTO) 9.4 % (1.0-10.0); NEUTROPHILS % (AUTO) 52.8 % (45.0-75.0); PLATELET COUNT 233 K/UL (150-450); RED BLOOD COUNT 3.79 M/UL (4.70-6.10); RED CELL DISTRIBUTION WIDTH 10.6 % (11.6-14.8)
--- NOTE | 2018-11-24 06:30 | NUR ---
NURSE NOTES: Iv was removed, new IV will be inserted.
[2018-11-24 07:06] LABS: ANION GAP 6 mmol/L (5-15); BLOOD UREA NITROGEN 16 mg/dL (7-18); CALCIUM 9.5 MG/DL (8.5-10.1); CARBON DIOXIDE 32 MMOL/L (21-32); CHLORIDE 102 MMOL/L (98-107); CREATININE 1.2 MG/DL (0.55-1.30); POTASSIUM 4.4 MMOL/L (3.5-5.1); SODIUM 140 MMOL/L (136-145)
--- NOTE | 2018-11-24 07:28 | NUR ---
NURSE NOTES: New iV inserted. Call light is at bedside. Will continue plan of care.
--- NOTE | 2018-11-24 07:29 | NUR ---
NURSE NOTES: Received patient awake alert and oriented, sitting up quietly in bed. IV site at left forearm, 22 gauge, infusing LR @ 150/hour. Bed at lowest level with 3 side rails up. Call light within reach. In no apparent distress at this time. Will continue to monitor.
[2018-11-24 08:00] VITALS: BP 156/104
[2018-11-24] MEDS: Heparin 5000 units/ml inj SUBQ SCH (09:05)
[2018-11-24] MEDS: Oxymetazoline 0.05% Na Spray 30ml NASAL PRN (09:17)
[2018-11-24] MEDS ORDERED: NORVASC10 MG ORAL (10:42)
--- NOTE | 2018-11-24 10:54 | Discharge Summary ---
Discharge Summary Hospital Course Date of Admission Nov 22, 2018 at 11:59 Date of Discharge 11/24/18 Admitting Diagnosis pancreatitis Reason for Hospitalization: Acute pancreatitis HPI Jeffrey Burroughs is a 68 year old male who was admitted on Nov 22, 2018 at 11:59 for Pancreatitis Consultations GI,Surgery Procedures None Hospital Course 68 year old man with HTN, chronic neck pain, history of right sided inguinal hernia repair who presented with left knee pain, bilateral inguinal hernias. Also found to have elevated lipase. Admitted to the medical service for acute pancreatitis - treated with bowel rest and IV fluids with resolution in pancreatitis. MRCP and US abd were negative. Patient seen by Surgery for bilateral inguinal hernias, outpatient follow up for surgical repair next week. Patient had MRI L knee showing medical meniscus tear, will follow up with Ortho as outpatient. Will be on Tramadol as outpatient for pain control. Home health ordered for home PT. Patient started on amlodipine for uncontrolled HTN Discharge Diagnoses #Possible acute pancreatitis, #Bilateral inguinal hernias, no evidence of incarceration or bowel obstruction #Left knee pain and gait instability due the medial meniscus tear #Uncontrolled HTN I spent 35 minutes on this patient's discharge including counseling and/or care coordination. Discharge Medications Changed Medications: Amlodipine Besylate (Norvasc) 10 Mg Tablet 5 MG ORAL DAILY for 30 Days, #30 TAB (Changed from: 10 MG) Discontinued Medications: Lisinopril* (Lisinopril*) 10 Mg Tablet 10 MG ORAL DAILY for 30 Days, #30 TAB No Known Medications* (NKM - No Known Medications*) . 0 ., 0 Refills Ondansetron (Zofran) 4 Mg Tablet 4 MG ORAL Q6H PRN for 14 Days, #30 TAB 0 Refills Pantoprazole* (Protonix*) 40 Mg Tablet.dr 40 MG ORAL DAILY for 30 Days, #30 TAB Discharge Condition Upon Discharge: stable Discharge Disposition Patient was discharged to home with home health Discharge Diagnoses: (1) Medial meniscus tear (2) Pancreatitis Saqib Vang MD Nov 24, 2018 10:54
--- NOTE | 2018-11-24 12:23 | Surgery Progress Note ---
Surgery Progress Note Subjective Symptoms: improved, pain absent, tolerating diet, passing flatus, BM Objective Last 24 Hour Vital Signs Date Time Temp Pulse Resp B/P (MAP) Pulse Ox O2 Delivery O2 Flow Rate FiO2 11/24/18 09:33 98.2 11/24/18 09:00 Room Air 11/24/18 08:00 98.4 78 18 156/104 (121) 99 11/24/18 04:00 98.2 63 20 123/71 (88) 97 11/24/18 00:00 98.5 72 20 118/69 (85) 93 11/23/18 21:00 Room Air 11/23/18 20:00 98.9 74 20 145/78 (100) 97 11/23/18 16:00 98.6 80 20 167/88 (114) 98 I&O Intake and Output 11/23/18 11/24/18 19:00 07:00 Intake Total 2760 ml 1890 ml Output Total 1800 ml 1500 ml Balance 960 ml 390 ml Intake Oral 960 ml 240 ml IV Total 1800 ml 1650 ml Output Urine Total 1800 ml 1500 ml Cardiovascular: RSR Respiratory: clear Abdomen: soft, flat, non-tender, present bowel sounds Extremities: no edema, no tenderness, no cyanosis Laboratory Tests Test 11/24/18 05:40 White Blood Count 5.0 K/UL (4.8-10.8) Red Blood Count 3.79 M/UL (4.70-6.10) L Hemoglobin 12.6 G/DL (14.2-18.0) L Hematocrit 35.1 % (42.0-52.0) L Mean Corpuscular Volume 93 FL (80-99) Mean Corpuscular Hemoglobin 33.2 PG (27.0-31.0) H Mean Corpuscular Hemoglobin Concent 35.8 G/DL (32.0-36.0) Red Cell Distribution Width 10.6 % (11.6-14.8) L Platelet Count 233 K/UL (150-450) Mean Platelet Volume 6.1 FL (6.5-10.1) L Neutrophils (%) (Auto) 52.8 % (45.0-75.0) Lymphocytes (%) (Auto) 32.9 % (20.0-45.0) Monocytes (%) (Auto) 9.4 % (1.0-10.0) Eosinophils (%) (Auto) 3.0 % (0.0-3.0) Basophils (%) (Auto) 1.9 % (0.0-2.0) Sodium Level 140 MMOL/L (136-145) Potassium Level 4.4 MMOL/L (3.5-5.1) Chloride Level 102 MMOL/L (98-107) Carbon Dioxide Level 32 MMOL/L (21-32) Anion Gap 6 mmol/L (5-15) Blood Urea Nitrogen 16 mg/dL (7-18) Creatinine 1.2 MG/DL (0.55-1.30) Estimat Glomerular Filtration Rate 59.9 mL/min (>60) Glucose Level 131 MG/DL (74-106) H Calcium Level 9.5 MG/DL (8.5-10.1) Lipase 292 U/L (73-393) Plan Problems: (1) Inguinal hernia (2) Acute pancreatitis Assessment & Plan: etiology unknown. prior episode currently clinically okay Resolving lipase in the 400s today We will continue to monitor Discussed with patient denies EtOH abuse Lipids okay for diet will follow with exams thank you (3) Abdominal pain Assessment & Plan: Resolved (4) Inguinal hernia Assessment & Plan: Impression: Limited assessment of the GI tract, due to lack of enteric contrast administration. No definite acute abnormality Small direct right inguinal hernia, containing a loop of small bowel again demonstrated. No evidence of obstruction or strangulation Small fat-containing left inguinal hernia and the edge of the sigmoid colon Subcentimeter low-attenuation liver lesions, too small to characterize, most likely benign simple cysts or bile hamartomas. No further follow-up necessary Bilateral subcentimeter nonobstructive renal calyceal calculi, also previously reported 2 bladder calculi are present. Previously there were 4 Other findings as noted, including lumbar scoliotic deformity, right basilar pulmonary parenchymal scarring, right scrotal hydrocele, right scrotal calcification, left renal cysts somewhat reducible plan for outpatient elective bilateral inguinal hernia repair soon discussed with patient of note patient states prior RIH repair at [facility] a few years ago but now recurred (5) Pancreatitis (6) Abdominal pain Additional Comments d/c home will schedule for elective hernia repair Tamir Ortiz Nov 24, 2018 12:23
--- NOTE | 2018-11-24 12:27 | NUR ---
DISCHARGE PLANNING FAXED REFERRAL FOR HOME HEALTH TO [facility] T# [phone] F# [phone] WILL FOLLOW UP Addendum: 11/24/18 at 1408 by Shirley Melgar LVN [facility] WILL ACCEPT PATIENT.
--- NOTE | 2018-11-24 12:38 | GI Progress Note ---
Assessment/Plan Problems: (1) Abdominal pain ICD Codes: R10.9 - Unspecified abdominal pain SNOMED: 81563184 (2) Acute pancreatitis ICD Codes: K85.90 - Acute pancreatitis without necrosis or infection, unspecified SNOMED: 455001878 Qualifiers: Qualified Codes: K85.90 - Acute pancreatitis without necrosis or infection, unspecified (3) GERD (gastroesophageal reflux disease) ICD Codes: K21.9 - Gastro-esophageal reflux disease without esophagitis SNOMED: 596528765 (4) Pancreatitis ICD Codes: K85.9 - Acute pancreatitis, unspecified SNOMED: 35103320 Status: stable Status Narrative Discussed with Dr. Miranda. Assessment/Plan Pancreatitis -Triglyceride level is within normal limits -Lipase level downtrending, now normalized -MRCP taken, pending final read -U tox uncollected MRCP reviewed okay for DC per GI standpoint regular diet, tolerating Pain management PPI Zofran as needed follow labs The patient was seen and examined at bedside and all new and available data was reviewed in the patients chart. I agree with the above findings, impression and plan. (Patient seen earlier today. Signature stamp does not reflect patient encounter time.). - Manuel Miranda MD Subjective Subjective denies abdominal pain Objective Last 24 Hour Vital Signs Date Time Temp Pulse Resp B/P (MAP) Pulse Ox O2 Delivery O2 Flow Rate FiO2 11/24/18 09:33 98.2 11/24/18 09:00 Room Air 11/24/18 08:00 98.4 78 18 156/104 (121) 99 11/24/18 04:00 98.2 63 20 123/71 (88) 97 11/24/18 00:00 98.5 72 20 118/69 (85) 93 11/23/18 21:00 Room Air 11/23/18 20:00 98.9 74 20 145/78 (100) 97 11/23/18 16:00 98.6 80 20 167/88 (114) 98 Intake and Output 11/23/18 11/24/18 19:00 07:00 Intake Total 2760 ml 1890 ml Output Total 1800 ml 1500 ml Balance 960 ml 390 ml Intake Oral 960 ml 240 ml IV Total 1800 ml 1650 ml Output Urine Total 1800 ml 1500 ml Laboratory Tests Test 11/24/18 05:40 White Blood Count 5.0 K/UL (4.8-10.8) Red Blood Count 3.79 M/UL (4.70-6.10) L Hemoglobin 12.6 G/DL (14.2-18.0) L Hematocrit 35.1 % (42.0-52.0) L Mean Corpuscular Volume 93 FL (80-99) Mean Corpuscular Hemoglobin 33.2 PG (27.0-31.0) H Mean Corpuscular Hemoglobin Concent 35.8 G/DL (32.0-36.0) Red Cell Distribution Width 10.6 % (11.6-14.8) L Platelet Count 233 K/UL (150-450) Mean Platelet Volume 6.1 FL (6.5-10.1) L Neutrophils (%) (Auto) 52.8 % (45.0-75.0) Lymphocytes (%) (Auto) 32.9 % (20.0-45.0) Monocytes (%) (Auto) 9.4 % (1.0-10.0) Eosinophils (%) (Auto) 3.0 % (0.0-3.0) Basophils (%) (Auto) 1.9 % (0.0-2.0) Sodium Level 140 MMOL/L (136-145) Potassium Level 4.4 MMOL/L (3.5-5.1) Chloride Level 102 MMOL/L (98-107) Carbon Dioxide Level 32 MMOL/L (21-32) Anion Gap 6 mmol/L (5-15) Blood Urea Nitrogen 16 mg/dL (7-18) Creatinine 1.2 MG/DL (0.55-1.30) Estimat Glomerular Filtration Rate 59.9 mL/min (>60) Glucose Level 131 MG/DL (74-106) H Calcium Level 9.5 MG/DL (8.5-10.1) Lipase 292 U/L (73-393) Height (Feet): 5 Height (Inches): 9.00 Weight (Pounds): 155 General Appearance: WD/WN, no apparent distress, alert Cardiovascular: normal rate Respiratory/Chest: normal breath sounds, no respiratory distress Abdominal Exam: normal bowel sounds, non tender, soft Extremities: normal range of motion, non-tender Veronica Bernardo CODING CONSULTANT Nov 24, 2018 12:38
--- NOTE | 2018-11-24 13:10 | NUR ---
NURSE NOTES: Patient discharged. IV and ID band removed. Belongings reconciled, prescription received from the pharmacy. Discharge instructions given and patient verbalized understanding. Escorted from facility without incident or injury.
== END 2018-11-24 13:11 | disposition home or self-care (01) | DRG 440 ==
LOC: EMR 10:40 → 4E 11:59 → EDBEDREQ 14:03
DX: K85.90 Acute pancreatitis without necrosis or infection, unspecified (principal); K40.20 Bilateral inguinal hernia, without obstruction or gangrene, not specified as recurrent; Z88.6 Allergy status to analgesic agent; Z88.3 Allergy status to other anti-infective agents; I10 Essential (primary) hypertension; G89.29 Other chronic pain; M54.2 Cervicalgia; R26.81 Unsteadiness on feet; S83.242A Other tear of medial meniscus, current injury, left knee, initial encounter; X58.XXXA Exposure to other specified factors, initial encounter; K21.9 Gastro-esophageal reflux disease without esophagitis
CPT/HCPCS: 36415; 74177; 74181; 76700; 80048; 80053; 80061; 81003; 82150; 82248; 83690; 85025; 96374; 96376; 99285

== ENCOUNTER 2018-12-07 10:05 | Observation (INO) | payer MEDICARE ==
[2018-12-07] VITALS (18 sets, daily range): BP systolic 120–215; BP diastolic 72–110
[~2018-12-07] VITALS: Ht 175.3 cm; Wt 70.3 kg
[2018-12-07] MEDS ORDERED: Bacitracin 50000 Units Vial ONE (10:45)
[2018-12-07] MEDS ORDERED: Bupivacaine w/Epi 0.5% 30ml Vial INJ ONE (10:45)
--- NOTE | 2018-12-07 10:47 | Consultation ---
History of Present Illness General Date patient seen: Dec 07, 2018 Present Illness HPI 68 year old male who was recently admitted to hospital for care noted to have large inguinal hernia causing discomfort. Discharged safely and seen in office for follow up. Concerned about hernia and has requested repair. Had right inguinal hernia repair years ago and since recurrence. no n/v/f/c. no obstructive symptoms. usually reducible but at times causes discomfort. possible left sided hernia. scheduled for elective repair today. Allergies: Coded Allergies: KETOROLAC TROMETHAMINE (Verified Allergy, Mild, Hives, 06/08/16) AZITHROMYCIN (Unverified Allergy, Unknown, 06/13/18) ERYTHROMYCIN BASE (Verified Adverse Reaction, Mild, NAUSEA VOMITING, ) Uncoded Allergies: NSAIDS (Allergy, Unknown, 01/09/18) peptic ulcer Medication History Scheduled Amlodipine Besylate (Norvasc), 5 MG ORAL DAILY Patient History History Provided By: Patient, Medical Record Healthcare decision maker N Resuscitation status Advanced Directive on File Past Medical/Surgical History Past Medical/Surgical History: (1) Inguinal hernia (2) Acute pancreatitis (3) GERD (gastroesophageal reflux disease) (4) Abdominal pain (5) Intractable nausea and vomiting (6) Inguinal hernia (7) [id number] (8) [id number] (9) Diarrhea (10) Kidney stones (11) Kidney stones (12) Kidney stones (13) Pancreatitis (14) Pancreatitis (15) Pancreatitis (16) Urolithiasis (17) Urolithiasis (18) Abdominal pain (19) Abdominal pain (20) Chest pain (21) Acute coronary syndrome (22) Chronic abdominal pain (23) Chronic abdominal pain (24) Cervical stenosis of spine (25) Cervical stenosis of spine (26) Opiate withdrawal (27) Finger fracture, left (28) Contusion of shoulder, left (29) Back contusion (30) Uncontrolled hypertension (31) Reduction defect of upper limb (32) Hand sprain (33) R/O occult fracture or ligament injury (34) Rt hand contusion (35) dental infection (36) reducible hernia (37) thumb tendonitis (38) Medial meniscus tear Review of Systems Review of Symptoms General ROS: no weight loss or fever Psychological ROS: no depression or mood changes, no memory loss Ophthalmic ROS: no visual changes or eye irritation ENT ROS: no nasal congestion, hearing loss, dizziness Allergy and Immunology ROS: no allergic symptoms or urticaria Hematological and Lymphatic ROS: no swollen glands, unusual bleeding or bruising Endocrine ROS: no polyuria, polydipsia, weight changes, temperature intolerance Respiratory ROS: no cough, shortness of breath, or wheezing Cardiovascular ROS: no chest pain or dyspnea on exertion Gastrointestinal ROS: denies abdominal pain, no bright red blood in stool. Musculoskeletal ROS: no myalgias or arthralgias Neurological ROS: no TIA or stroke symptoms Dermatological ROS: no new or changing skin lesions, rashes or pruritis Physical Exam Physical Exam General appearance: alert, cooperative, no distress, appears stated age Head: Normocephalic, without obvious abnormality, atraumatic Eyes: conjunctivae/corneas clear. PERRL, EOM's intact. Fundi benign Throat: Lips, mucosa, and tongue normal. Teeth and gums normal Neck: supple, symmetrical, trachea midline, no adenopathy, thyroid: not enlarged, symmetric, no tenderness/mass/nodules, no carotid bruit and no JVD Lungs: clear to auscultation bilaterally Heart: regular rate and rhythm, S1, S2 normal, no murmur, click, rub or gallop Abdomen: soft, non-tender. Bowel sounds normal. No masses, no organomegaly; reducible right inguinal hernia; possible left Extremities: extremities normal, atraumatic, no cyanosis or edema Pulses: 2+ and symmetric Skin: Skin color, texture, turgor normal. No rashes or lesions Neurologic: Grossly normal Assessment/Plan Problem List: (1) Inguinal hernia Assessment & Plan: Bilateral inguinal hernia right recurrent inguinal hernia left inguinal hernia plan for lap vs open repair today with mesh npo iv fluids pre op abx consent thank you ICD Codes: K40.90 - Unilateral inguinal hernia, without obstruction or gangrene , not specified as recurrent SNOMED: [id number] Tamir Ortiz Dec 07, 2018 10:47
--- NOTE | 2018-12-07 10:47 | Pre-Procedure Note/Attestation ---
Pre-Procedure Note/Attestation Complete Prior to Procedure Planned Procedure: bilateral Procedure Narrative: laparoscopic bilateral inguinal hernia repair with mesh Indications for Procedure Pre-Operative Diagnosis: right recurrent inguinal hernia; left inguinal hernia Attestation I attest that I discussed the nature of the procedure; its benefits; risks and complications; and alternatives (and the risks and benefits of such alternatives ), prior to the procedure, with the patient (or the patient's legal junior sales representative). I attest that, if there was a reasonable possibility of needing a blood transfusion, the patient (or the patient's legal junior sales representative) was given the [facility] standardized written summary, pursuant to the [place] Blood Safety Act ([place] Health and Safety Code # 1645, as amended). I attest that I re-evaluated the patient just prior to the surgery and that there has been no change in the patient's H&P, except as documented below: Tamir Ortiz Dec 07, 2018 10:47
[2018-12-07] MEDS ORDERED: COLACE100 MG ORAL (10:48)
[2018-12-07] MEDS ORDERED: ceFAZolin sod 2 GM in D5W 110 ML IV ONE (11:00)
[2018-12-07] MEDS ORDERED: Zemuron 50mg/5ml Inj IV ONE (11:49)
[2018-12-07] MEDS ORDERED: Midazolam 2mg/2ml Inj ONE (11:53)
[2018-12-07] MEDS ORDERED: fentaNYL 100 mcg/2 mL IV ONE ×2 (11:53→13:26)
[2018-12-07] MEDS ORDERED: ePHEDrine 50mg/ml Inj ONE (12:00)
[2018-12-07] MEDS ORDERED: NS Irrig 1000ml ONE (12:00)
[2018-12-07] MEDS ORDERED: Sterile Water Irrig 1000ml IRRIG ONE (12:00)
[2018-12-07] MEDS ORDERED: LR 1000ml ONE (12:00)
[2018-12-07] MEDS ORDERED: Propofol 200mg/20ml IV ONE (12:17)
[2018-12-07] MEDS ORDERED: Lidocaine 1% MPF 10mg/ml 5ml ONE (12:17)
[2018-12-07] MEDS ORDERED: Metoclopramide 10mg/2ml Inj ONE (12:17)
--- NOTE | 2018-12-07 13:17 | Anethesia Preoperative Eval ---
Anesthesia Pre-op PMH/ROS General Date of Evaluation: Dec 07, 2018 Time of Evaluation: 11:50 Anesthesiologist: barb ASA Score: ASA 2 Mallampati Score Class I : Soft palate, uvula, fauces, pillars visible Class II: Soft palate, uvula, fauces visible Class III: Soft palate, base of uvula visible Class IV: Only hard plate visible Mallampati Classification: Class II Surgeon: Alberto Diagnosis: Hernia Repair Surgical Procedure: Bilteral Inguinal repair Anesthesia History: none Social History: current smoker Family History: no anesthesia problems Allergies: Coded Allergies: AZITHROMYCIN (Unverified Allergy, Intermediate, VOMITING, 12/07/18) ERYTHROMYCIN BASE (Verified Allergy, Intermediate, NAUSEA VOMITING, ) KETOROLAC TROMETHAMINE (Verified Allergy, Intermediate, Hives, 12/07/18) Uncoded Allergies: NSAIDS (Adverse Reaction, Severe, 12/07/18) peptic ulcer, GI BLEED Medications: see eMAR Patient NPO?: Yes NPO Date: Dec 07, 2018 NPO Time: 00:01 Past Medical History Cardiovascular: Reports: HTN Gastrointestinal/Genitourinary: Reports: GERD PSxH Narrative: right inguinal repair Anesthesia Pre-op Phys. Exam Physician Exam Last Vital Signs Date Time Temp Pulse Resp B/P (MAP) Pulse Ox O2 Delivery O2 Flow Rate FiO2 12/07/18 11:22 Room Air 12/07/18 10:52 97.6 77 18 120/79 99 Constitutional: NAD Neurologic: CN 2-12 intact Cardiovascular: RRR Respiratory: CTA Gastrointestinal: S/NT/ND Airway Exam Mallampati Classification 2 Mallampati Score: Class II Neck: normal ROM: full Teeth: broken, loose Anesthesia Pre-op A/P Studies Pre-op Studies: EKG - sr Risk Assessment & Plan Assessment: denies changes in health Plan: General Pre-Antibiotics Drug: ancef Given Within 1 Hr of Incision: Yes Time Given: 12:15 Ellen Connell CRNA Dec 07, 2018 13:17
[2018-12-07] MEDS ORDERED: Labetalol 5mg/ml 20ml vial IV ONE (14:35)
--- NOTE | 2018-12-07 14:35 | Immediate Post-Op Evaluation ---
Immediate Post-Op Evalulation Immediate Post-Op Evalulation Procedure: Julio inguinal hernia repair Date of Evaluation: Dec 07, 2018 Time of Evaluation: 14:35 Nausea: No Vomiting: No Epifanio Gonzalez MD Dec 07, 2018 14:35
--- NOTE | 2018-12-07 14:38 | Consultation ---
History of Present Illness General Date patient seen: Dec 07, 2018 Chief Complaint: abd discomfort Reason for Consultation: medical management/ clearance Present Illness HPI 68 year old male with PMh of HTN presented for elective repair of large inguinal hernia. Pt recently admitted to hospital for discomfort 2/2 large inguinal hernia, discharged home for follow up with Dr Ortiz. Pt with concern about hernia and has requested repair. Pt states he feels well, has no complaints, denies fevers, chills, nausea, vomiting, urinary complaints, chest pain or SOB. Allergies: Coded Allergies: AZITHROMYCIN (Unverified Allergy, Intermediate, VOMITING, 12/07/18) ERYTHROMYCIN BASE (Verified Allergy, Intermediate, NAUSEA VOMITING, ) KETOROLAC TROMETHAMINE (Verified Allergy, Intermediate, Hives, 12/07/18) Uncoded Allergies: NSAIDS (Adverse Reaction, Severe, 12/07/18) peptic ulcer, GI BLEED Medication History Scheduled Amlodipine Besylate (Norvasc), 5 MG ORAL DAILY Docusate Sodium* (Colace*), 100 MG ORAL TWICE A DAY, (Reported) Patient History History Provided By: Patient Healthcare decision maker N Resuscitation status Advanced Directive on File Review of Systems Constitutional: Reports: no symptoms Eye: Reports: no symptoms ENT: Reports: no symptoms Respiratory: Reports: no symptoms Cardiovascular: Reports: no symptoms Gastrointestinal: Reports: other - abdominal discomfort Genitourinary: Reports: no symptoms Musculoskeletal: Reports: no symptoms Skin: Reports: no symptoms Psychiatric: Reports: no symptoms Neurological: Reports: no symptoms Endocrine: Reports: no symptoms Hematologic/Lymphatic: Reports: no symptoms Physical Exam General Appearance: no apparent distress, alert Lines, tubes and drains: peripheral HEENT: normocephalic, atraumatic Neck: non-tender, normal alignment, supple Respiratory/Chest: chest wall non-tender, lungs clear Cardiovascular/Chest: normal peripheral pulses, normal rate, regular rhythm Abdomen: normal bowel sounds, non tender, soft Skin Exam: normal pigmentation 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: steel unloader 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 grossly normal Last 24 Hour Vital Signs Date Time Temp Pulse Resp B/P (MAP) Pulse Ox O2 Delivery O2 Flow Rate FiO2 12/07/18 11:22 Room Air 12/07/18 10:52 97.6 77 18 120/79 99 Room Air Height (Feet): 5 Height (Inches): 9.00 Weight (Pounds): 155 Medications Current Medications Medications (Trade) Dose Ordered Sig/Bernardo Route PRN Reason Start Time Stop Time Status Last Admin Dose Admin Fentanyl Citrate (Sublimaze 100 mcg/2 mL) 25 mcg Q10M PRN IV Moderate Pain (Pain Scale 4-6) 12/07/18 13:15 12/07/18 20:00 Fentanyl Citrate (Sublimaze 100 mcg/2 mL) 25 mcg Q10M PRN IV Moderate Pain (Pain Scale 4-6) 12/07/18 14:45 12/07/18 22:00 Labetalol HCl (Normodyne) 5 mg Q10M PRN IV SBP>160 or____/ DBP>90 or 12/07/18 14:45 12/07/18 22:00 Ondansetron HCl (Zofran) 4 mg Q1H PRN IVP Nausea & Vomiting 12/07/18 13:15 12/07/18 20:00 Sodium Chloride 1,000 ml @ 75 mls/hr [id number] 12/07/18 10:47 01/06/19 10:46 Assessment/Plan Status: stable Assessment/Plan: 68 year old male with PMh of HTN presented for elective repair of large inguinal hernia. #Light recurrent inguinal hernia #Left inguinal hernia -Plan for elective repair today with Dr. Ortiz -NPO -Pt medically cleared for above mentioned procedure, no additional workup needed Perioperative recommendations include IV Ancef [id number] ad operations specialist to the OR. Post operative recommendations include: - Encourage mobilization/ambulation - Encourage incentive spirometry to optimize pulmonary hygiene - DVT/GI prophylaxis as appropriate - Pain control and supportive care #HTN -Cont norvasc 5mg daily Giana Allison MD Dec 07, 2018 14:38
[2018-12-07] MEDS ORDERED: Labetalol 5mg/ml 20ml vial IV PRN (14:45)
[2018-12-07] MEDS ORDERED: fentaNYL 100 mcg/2 mL IV PRN (14:45)
[2018-12-07] MEDS: fentaNYL 100 mcg/2 mL IV PRN ×3 (15:28→16:01)
--- NOTE | 2018-12-07 15:59 | Brief Operative Note ---
Immediate Post Operative Note Operative Note Pre-op Diagnosis: right recurrent inguinal hernia; left inguinal hernia Procedure: laparoscopic bilateral inguinal hernia repair with mesh Post-op Diagnosis: 1. left direct inguinal hernia 2. right recurrent inguinal hernia direct Surgeon: dominick Anesthesiologist: taryn Anesthesia: general, local Specimen: yes Complications: none Condition: stable Fluids: see records Estimated Blood Loss: minimal Drains: none Implant(s) used?: Yes - bard mesh Tamir Ortiz Dec 07, 2018 15:59
[2018-12-07] MEDS ORDERED: Tubing IV Secondary IV ONE (16:00)
[2018-12-07] MEDS ORDERED: HYDROmorphone 1mg/ml Carpuject IVP PRN (16:00)
[2018-12-07] MEDS ORDERED: HYDROcodone/Acetamin 5/325 tab ORAL PRN (16:00)
[2018-12-07] MEDS ORDERED: Milk of Magnesia 30ml Ud ORAL PRN (16:00)
[2018-12-07] MEDS: Docusate 100mg cap ORAL SCH (17:34)
[2018-12-07] MEDS: D5 1/2NS w/KCl 20mEq 1,000 ML IV SCH (18:42)
[2018-12-07] MEDS: HYDROcodone/Acetamin 10/325 tab ORAL PRN (18:43)
[2018-12-07] MEDS: Hydromorphone 0.5mg/0.5ml inj IVP PRN (20:41)
[2018-12-07] MEDS: ceFAZolin sod 2 GM in D5W 110 ML IV SCH (20:57)
[2018-12-08] VITALS: BP 136/72
--- NOTE | 2018-12-08 01:00 | Operative Note - Dictated ---
DATE OF OPERATION: 12/07/2018 PREOPERATIVE DIAGNOSES: Bilateral inguinal hernia. 1. Recurrent right. 2. Left inguinal hernia. POSTOPERATIVE DIAGNOSES: 1. Recurrent right inguinal hernia. 2. Left direct inguinal hernia. OPERATION PERFORMED: Laparoscopic bilateral inguinal hernia repair with mesh. ATTENDING SURGEON: Tamir Ortiz M.D. REAL ESTATE DIRECTOR: None. ANESTHESIOLOGIST: Ellen Connell CRNA. 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 ESTIMATED BLOOD LOSS: Minimal. IV FLUIDS: Please see anesthesia records. COMPLICATIONS: None. DRAINS: None. SPECIMENS: Right hernia sac sent to pathology for review. COUNTS: Sponge and needle count correct x2. WOUND CLASSIFICATION: Class I. ANTIBIOTICS: A 2 g Ancef given 1 hour prior to cut time. IMPLANTS: Bard large right-sided 3D mesh and Bard large left-sided 3D mesh. INDICATIONS FOR PROCEDURE: This is a 68-year-old male, who was recently admitted to [facility] for abdominal pain and discomfort, which was identified to have a bilateral inguinal hernia. Hernias were reducible but identified and the right side being recurrent given the patient had open repair in the past with mesh. Given these findings and being able to identify a reducible bowel on the right side, surgery was indicated and recommended. The patient was discharged during that admission and scheduled to follow-up in the office and seen and scheduled for elective outpatient surgery on 12/07/2018. Risks, benefits, and alternatives of the surgery were discussed with the patient in detail, who expressed understanding, and consented to surgery. OPERATIVE NOTE: The patient was taken to the operating room and placed on the operating room table in supine position with bilateral arms out. All bony prominences were well padded. SCDs were placed. Preoperative time-out taken in identifying the patient, procedure, operative staff, and surgical staff. General anesthesia was induced. The patient was intubated. The patient was given 2 g Ancef IV one hour prior to cut time. The abdomen was clipped, prepped, and draped in standard surgical fashion. An infraumbilical incision was made using a fresh #11 scalpel and carried down to the fascia, which was elevated and incised. Entry into the abdomen was obtained using the open Violet technique. A 12 mm Violet trocar was inserted and the abdomen was insufflated to 12 to 15 mmHg. The patient tolerated the insufflation well. Laparoscope was inserted and the abdomen was inspected. Secondary trocars were placed under direct visualization beginning with a right mid abdominal 5 mm followed by left mid abdominal 5 mm trocar. No injury from secondary trocar placement noted. Of note, local anesthetic was used for incision sites and trocar sites throughout the procedure for the patient's comfort. The abdomen was inspected and on the right side, a recurrent right direct inguinal hernia was identified. No indirect component was noted. On the left side, there was no indirect hernia, but there was also a left direct inguinal hernia. Right side was greater than the left side. At this time, decision was made to proceed with bilateral inguinal hernia repair with mesh. Of note on the right side, there was some preperitoneal contracture and adhesions from the patient's prior repair. Using a laparoscopic scissors, a flap of the peritoneal lining was made from the anterior superior iliac spine towards the median umbilical ligament. A flap was created while reducing the right-sided direct inguinal hernia ad clearing off the cord structures until circumferentially dissected and cleared. Dissection was carried medially towards the pubic tubercle. Once appropriate distention was identified and hernia was reduced, a small hernia sac was excised out and sent to pathology for review. The area was inspected. Good hemostasis noted. The epigastric arteries were identified and preserved throughout the procedure. The vas deferens and cord structures were identified and preserved throughout the procedure. A good plane of dissection was identified without complication. In a similar fashion, the left-sided hernia was reduced and plane made. There were no complications during the dissection and it was completed successfully laparoscopically. At this time, a Bard 3D mesh right-sided large was entered into the operative field, placed on the right side followed by a Bard large left 3D inguinal hernia mesh. Both of these placed in appropriate positioning and fortunately overlapped right at the midline of the pubic tubercle. The absorbable tacks were placed to keep them both attached for a better securement. The right and left side meshes were tacked to the pubic tubercle and Steven's ligament using absorbable tacks. Once this was completed, both meshes were identified to be in satisfactory position covering the indirect and direct hernia sites without complication. Once satisfactory position was identified and meshes were in place appropriately, the peritoneal flap window was reapproximated using ProTacks. Following this, Tisseel fibrin sealing glue was placed on both sides to allow the peritoneal lining and the mesh to appropriately follow the anatomical positioning. Both hernias were reduced successfully without complication. Both cord structures were identified and preserved throughout the procedure without complication. Tacks were used sparingly only in appropriate places for positioning of the mesh. Satisfactory hernia repair was identified during the procedure without complication. Secondary trocars were removed under direct visualization followed by the umbilical trocar site. The umbilical trocar fascia was reapproximated using #0 Vicryl [id number] suture. The remaining skin incisions were cleansed and reapproximated using 4-0 Monocryl subcuticular interrupted sutures. Skin glue and Steri-Strips were applied. At the end of the procedure, both testicles were identified into the scrotal sac and no complications noted. The patient tolerated the procedure well, was extubated, and taken to the postanesthetic care unit in stable condition. Tamir Ortiz M.D. DR: PATRICK JOB#: [id number] CC: VICENTE
[2018-12-08] MEDS: Hydromorphone 0.5mg/0.5ml inj IVP PRN ×2 (01:26→04:39)
[2018-12-08 04:00] VITALS: BP 149/80
[2018-12-08] MEDS: ceFAZolin sod 2 GM in D5W 110 ML IV SCH (04:11)
[2018-12-08] MEDS: D5 1/2NS w/KCl 20mEq 1,000 ML IV SCH (06:22)
[2018-12-08 06:35] LABS: BASOPHILS % (AUTO) 1.5 % (0.0-2.0); EOSINOPHILS % (AUTO) 2.9 % (0.0-3.0); HEMATOCRIT 34.1 % (42.0-52.0); HEMOGLOBIN 12.1 G/DL (14.2-18.0); LYMPHOCYTES % (AUTO) 27.3 % (20.0-45.0); MEAN CORPUSCULAR VOLUME 93 FL (80-99); MONOCYTES % (AUTO) 4.9 % (1.0-10.0); NEUTROPHILS % (AUTO) 63.4 % (45.0-75.0); PLATELET COUNT 164 K/UL (150-450); RED BLOOD COUNT 3.67 M/UL (4.70-6.10); RED CELL DISTRIBUTION WIDTH 10.4 % (11.6-14.8); WHITE BLOOD COUNT 5.4 K/UL (4.8-10.8)
[2018-12-08 07:02] LABS: ANION GAP 8 mmol/L (5-15); BLOOD UREA NITROGEN 14 mg/dL (7-18); CALCIUM 8.9 MG/DL (8.5-10.1); CARBON DIOXIDE 29 MMOL/L (21-32); CHLORIDE 105 MMOL/L (98-107); CREATININE 1.2 MG/DL (0.55-1.30); POTASSIUM 4.2 MMOL/L (3.5-5.1); SODIUM 142 MMOL/L (136-145)
[2018-12-08 08:00] VITALS: BP 149/81
[2018-12-08] MEDS: Docusate 100mg cap ORAL SCH (08:46)
[2018-12-08] MEDS ORDERED: NORCO 5-325 TA1 EACH ORAL (11:12)
[2018-12-08] MEDS: HYDROcodone/Acetamin 10/325 tab ORAL PRN (11:19)
--- NOTE | 2018-12-08 11:44 | History & Physical ---
History and Physical History & Physicial HPI 68 year old male who was recently admitted to hospital for care noted to have large inguinal hernia causing discomfort. Discharged safely and seen in office for follow up. Concerned about hernia and has requested repair. Had right inguinal hernia repair years ago and since recurrence. no n/v/f/c. no obstructive symptoms. usually reducible but at times causes discomfort. possible left sided hernia. scheduled for elective repair today. Allergies: Coded Allergies: KETOROLAC TROMETHAMINE (Verified Allergy, Mild, Hives, 06/08/16) AZITHROMYCIN (Unverified Allergy, Unknown, 06/13/18) ERYTHROMYCIN BASE (Verified Adverse Reaction, Mild, NAUSEA VOMITING, ) Uncoded Allergies: NSAIDS (Allergy, Unknown, 01/09/18) peptic ulcer Medication History Scheduled Amlodipine Besylate (Norvasc), 5 MG ORAL DAILY Patient History History Provided By: Patient, Medical Record Healthcare decision maker N Resuscitation status Advanced Directive on File Past Medical/Surgical History Past Medical/Surgical History: (1) Inguinal hernia (2) Acute pancreatitis (3) GERD (gastroesophageal reflux disease) (4) Abdominal pain (5) Intractable nausea and vomiting (6) Inguinal hernia (7) [id number] (8) [id number] (9) Diarrhea (10) Kidney stones (11) Kidney stones (12) Kidney stones (13) Pancreatitis (14) Pancreatitis (15) Pancreatitis (16) Urolithiasis (17) Urolithiasis (18) Abdominal pain (19) Abdominal pain (20) Chest pain (21) Acute coronary syndrome (22) Chronic abdominal pain (23) Chronic abdominal pain (24) Cervical stenosis of spine (25) Cervical stenosis of spine (26) Opiate withdrawal (27) Finger fracture, left (28) Contusion of shoulder, left (29) Back contusion (30) Uncontrolled hypertension (31) Reduction defect of upper limb (32) Hand sprain (33) R/O occult fracture or ligament injury (34) Rt hand contusion (35) dental infection (36) reducible hernia (37) thumb tendonitis (38) Medial meniscus tear Review of Systems Review of Systems Review of Symptoms General ROS: no weight loss or fever Psychological ROS: no depression or mood changes, no memory loss Ophthalmic ROS: no visual changes or eye irritation ENT ROS: no nasal congestion, hearing loss, dizziness Allergy and Immunology ROS: no allergic symptoms or urticaria Hematological and Lymphatic ROS: no swollen glands, unusual bleeding or bruising Endocrine ROS: no polyuria, polydipsia, weight changes, temperature intolerance Respiratory ROS: no cough, shortness of breath, or wheezing Cardiovascular ROS: no chest pain or dyspnea on exertion Gastrointestinal ROS: denies abdominal pain, no bright red blood in stool. Musculoskeletal ROS: no myalgias or arthralgias Neurological ROS: no TIA or stroke symptoms Dermatological ROS: no new or changing skin lesions, rashes or pruritis Physical Exam Physical Exam Physical Exam General appearance: alert, cooperative, no distress, appears stated age Head: Normocephalic, without obvious abnormality, atraumatic Eyes: conjunctivae/corneas clear. PERRL, EOM's intact. Fundi benign Throat: Lips, mucosa, and tongue normal. Teeth and gums normal Neck: supple, symmetrical, trachea midline, no adenopathy, thyroid: not enlarged, symmetric, no tenderness/mass/nodules, no carotid bruit and no JVD Lungs: clear to auscultation bilaterally Heart: regular rate and rhythm, S1, S2 normal, no murmur, click, rub or gallop Abdomen: soft, non-tender. Bowel sounds normal. No masses, no organomegaly; reducible right inguinal hernia; possible left Extremities: extremities normal, atraumatic, no cyanosis or edema Pulses: 2+ and symmetric Skin: Skin color, texture, turgor normal. No rashes or lesions Neurologic: Grossly normal Assessment/Plan Assessment/Plan Problem List: (1) Inguinal hernia Assessment & Plan: Bilateral inguinal hernia right recurrent inguinal hernia left inguinal hernia plan for lap vs open repair today with mesh npo iv fluids pre op abx consent thank you ICD Codes: K40.90 - Unilateral inguinal hernia, without obstruction or gangrene , not specified as recurrent SNOMED: [id number] Tamir Ortiz Dec 08, 2018 11:44
--- NOTE | 2018-12-08 11:50 | Surgery Progress Note ---
Surgery Progress Note Subjective Procedure Performed laparoscopic bilateral inguinal hernia repair with mesh Symptoms: improved, tolerating diet, voiding well, passing flatus, pain decreased Objective Last 24 Hour Vital Signs Date Time Temp Pulse Resp B/P (MAP) Pulse Ox O2 Delivery O2 Flow Rate FiO2 12/08/18 08:50 Room Air 12/08/18 08:46 70 149/81 12/08/18 08:00 98.2 70 20 149/81 (103) 96 12/08/18 05:09 97.7 12/08/18 04:00 97.6 65 20 149/80 (103) 97 12/08/18 00:00 97.9 62 18 136/72 (93) 99 12/07/18 21:00 Nasal Cannula 2.0 12/07/18 20:00 97.8 70 18 138/82 (100) 100 12/07/18 18:45 97.7 72 20 131/78 (95) 99 12/07/18 17:45 97.9 68 20 130/77 (94) 99 12/07/18 17:15 97.7 64 18 128/76 (93) 99 12/07/18 16:51 Nasal Cannula 3.0 12/07/18 16:45 97.4 69 18 124/74 (91) 100 12/07/18 16:40 97.4 12/07/18 16:30 97.4 65 20 129/77 100 Nasal Cannula 3 12/07/18 16:15 67 21 128/74 100 Nasal Cannula 3 12/07/18 16:00 66 18 127/76 100 Nasal Cannula 3 12/07/18 15:50 67 19 128/75 100 Nasal Cannula 3 12/07/18 15:40 69 17 122/72 100 Nasal Cannula 3 12/07/18 15:30 74 16 127/79 97 Room Air 12/07/18 15:15 78 18 134/84 96 Room Air 12/07/18 15:00 78 15 135/83 100 Simple Mask 6 12/07/18 14:50 84 17 125/80 100 Simple Mask 6 12/07/18 14:41 111 215/110 12/07/18 14:40 108 16 211/101 100 Simple Mask 6 12/07/18 14:35 108 16 203/99 100 Simple Mask 6 12/07/18 14:31 97.5 111 15 215/110 100 Simple Mask 6 I&O Intake and Output 12/07/18 12/08/18 19:00 07:00 Intake Total 1300 ml Output Total 40 ml 650 ml Balance 1260 ml -650 ml Intake IV Total 1300 ml Output Urine Total 40 ml 650 ml # Voids 1 Dressing: dry Wound: clean Drains: none Cardiovascular: RSR Respiratory: clear Abdomen: soft, flat, tenderness - improving incisional , present bowel sounds, non-distended Extremities: no edema, no tenderness, no cyanosis Laboratory Tests Test 12/08/18 05:30 White Blood Count 5.4 K/UL (4.8-10.8) Red Blood Count 3.67 M/UL (4.70-6.10) L Hemoglobin 12.1 G/DL (14.2-18.0) L Hematocrit 34.1 % (42.0-52.0) L Mean Corpuscular Volume 93 FL (80-99) Mean Corpuscular Hemoglobin 33.0 PG (27.0-31.0) H Mean Corpuscular Hemoglobin Concent 35.5 G/DL (32.0-36.0) Red Cell Distribution Width 10.4 % (11.6-14.8) L Platelet Count 164 K/UL (150-450) Mean Platelet Volume 6.2 FL (6.5-10.1) L Neutrophils (%) (Auto) 63.4 % (45.0-75.0) Lymphocytes (%) (Auto) 27.3 % (20.0-45.0) Monocytes (%) (Auto) 4.9 % (1.0-10.0) Eosinophils (%) (Auto) 2.9 % (0.0-3.0) Basophils (%) (Auto) 1.5 % (0.0-2.0) Sodium Level 142 MMOL/L (136-145) Potassium Level 4.2 MMOL/L (3.5-5.1) Chloride Level 105 MMOL/L (98-107) Carbon Dioxide Level 29 MMOL/L (21-32) Anion Gap 8 mmol/L (5-15) Blood Urea Nitrogen 14 mg/dL (7-18) Creatinine 1.2 MG/DL (0.55-1.30) Estimat Glomerular Filtration Rate 59.9 mL/min (>60) Glucose Level 150 MG/DL (74-106) H Calcium Level 8.9 MG/DL (8.5-10.1) Assessment Post-op Diagnosis 1. left direct inguinal hernia 2. right recurrent inguinal hernia direct Plan Problems: (1) Inguinal hernia Assessment & Plan: Bilateral inguinal hernia right recurrent inguinal hernia left inguinal hernia s/p lap bilateral inguinal hernia repair with mesh admitted post op for pain control improved today tolerating diet ambulatory labs okay passing flatus pain improved abd soft non distended, incisional tenderness, incision c/d/i patient given tramadol Rx pre op to have available post op at home. feels that pain may be more then he anticipated. Rx for [place] written. instructed to return tramadol to pharmacy or discard d/c today f/u 12/20 at 11AM Tamir Ortiz Dec 08, 2018 11:50
[2018-12-08 12:00] VITALS: BP 135/71
--- NOTE | 2018-12-08 12:04 | Cardiology Report ---
APPROVED REPORT EKG Measurement Heart [id number] Normal sinus rhythm Normal ECG
[2018-12-08 13:30] VITALS: BP 134/76
--- NOTE | 2018-12-08 13:30 | 48 Hour Post Anesthesia Eval ---
Post Anesthesia Evaluation Procedure: Julio inguinal hernia repair Date of Evaluation: Dec 08, 2018 Time of Evaluation: 13:29 Blood Pressure Systolic: 134 0: 76 Pulse Rate: 72 Respiratory Rate: 20 Temperature (Fahrenheit): 97.6 O2 Sat by Pulse Oximetry: 98 Airway: patent Nausea: No Vomiting: No Pain Intensity: 3 Hydration Status: adequate Cardiopulmonary Status: stable Mental Status/LOC: patient returned to baseline Follow-up Care/Observations: n/a Post-Anesthesia Complications: none Follow-up care needed: N/A Sudhir Collado MD Dec 08, 2018 13:30
== END 2018-12-08 13:45 | disposition home or self-care (01) ==
LOC: SUR 10:05 → 3E 15:59
DX: K40.20 Bilateral inguinal hernia, without obstruction or gangrene, not specified as recurrent (principal); I10 Essential (primary) hypertension; Z88.6 Allergy status to analgesic agent; Z79.899 Other long term (current) drug therapy; K21.9 Gastro-esophageal reflux disease without esophagitis; Z87.442 Personal history of urinary calculi
CPT/HCPCS: 36415; 49650; 49651; 80048; 85025; 93005; 96360 ×2; 96361; 97161; C1781; J0690; J1170 ×3; J2250; J2405; J2704; J2765; J3010; 94003; 94150

== ENCOUNTER 2019-07-02 03:48 | Emergency (ER) | payer MEDICARE ==
[~2019-07-02] VITALS: Ht 175.3 cm; Wt 70.3 kg
[~2019-07-02 03:48] MED LIST changes: +COLACE100 MG ORAL
[2019-07-02 04:00] VITALS: BP 163/90
--- NOTE | 2019-07-02 04:00 | NUR ---
ER Nurse Note: Pt walked in c/o skin rash all over his body. Pt does not recall what hapened and how the rash formed. Per pt, skin intact, redness on all extremities, torso, back; itchiness all over. Pt stated he had mites 5 years ago. Will continue to monitor.
[2019-07-02] MEDS ORDERED: BENADRYL25 MG ORAL (04:10)
[2019-07-02] MEDS ORDERED: PERMETHRIN60 GM TOPIC (04:10)
[2019-07-02] MEDS ORDERED: DOXYCYCLINE MO100 MG ORAL (04:10)
--- NOTE | 2019-07-02 04:11 | Emergency Room Report ---
History of Present Illness General Chief Complaint: Skin Rash/Abscess Source: Patient Present Illness HPI This is a 69-year-old male with a blood pressure. He presents with complaint of rash. Is been ongoing for over a week. And getting worse. Is very itchy. Started on his right arm but now across his chest and torso. Also down his legs. He has been scratching but no fever chills but no drainage. He said 3 to 4 years ago he has "nits" feeling better. He denies any bites. No nausea no vomiting. No fever chills. Worse with scratching. No pain. Allergies: Coded Allergies: AZITHROMYCIN (Unverified Allergy, Intermediate, VOMITING, 12/07/18) ERYTHROMYCIN BASE (Verified Allergy, Intermediate, NAUSEA VOMITING, ) KETOROLAC TROMETHAMINE (Verified Allergy, Intermediate, Hives, 12/07/18) Uncoded Allergies: NSAIDS (Adverse Reaction, Severe, 12/07/18) peptic ulcer, GI BLEED Patient History Past Medical History: see triage record, old chart reviewed Past Surgical History: other Pertinent Family History: none Social History: Reports: smoking Immunizations: other Reviewed Nursing Documentation: PMH: Agreed; PSxH: Agreed Nursing Documentation-PMH Hx Cardiac Problems: No Hx Hypertension: Yes Hx Pacemaker: No Hx Asthma: No Hx COPD: No Hx Diabetes: No Hx Cancer: No Hx Dialysis: No Hx Neurological Problems: No Hx Cerebrovascular Accident: No Hx Seizures: No Review of Systems Eye: Denies: eye pain, blurred vision ENT: Denies: ear pain, nose congestion, throat swelling Respiratory: Denies: cough, shortness of breath Cardiovascular: Denies: chest pain, palpitations Gastrointestinal: Denies: abdominal pain, diarrhea, nausea, vomiting Musculoskeletal: Denies: back pain, joint pain Skin: Reports: rash Neurological: Denies: headache, numbness Endocrine: Denies: increased thirst, increased urine Hematologic/Lymphatic: Denies: easy bruising All Other Systems: negative except mentioned in HPI Physical Exam Vital Signs Date Time Temp Pulse Resp B/P (MAP) Pulse Ox O2 Delivery O2 Flow Rate FiO2 07/02/19 03:52 97.5 83 19 163/90 (114) 97 Room Air Vitals with high blood pressure Sp02 EP Interpretation: reviewed, normal General Appearance: well appearing, no apparent distress, alert Head: normocephalic, atraumatic Eyes: bilateral eye PERRL, bilateral eye EOMI ENT: hearing grossly normal, normal pharynx Neck: full range of motion, supple, no meningismus Respiratory: chest non-tender, lungs clear, normal breath sounds Cardiovascular #1: regular rate, rhythm, no murmur Gastrointestinal: normal bowel sounds, non tender, no mass, no organomegaly, no bruit, non-distended Musculoskeletal: back normal, normal range of motion, gait/station normal Neurologic: alert Psychiatric: mood/affect normal Skin: other - Diffuse erythematous rash on his body and arms and legs. No purpura. Medical Decision Making Diagnostic Impression: Primary Impression: Rash and other nonspecific skin eruption ER Course pt presents with nonspecific rash. May be an allergic reaction. Doubt this is scabies or parasitic in nature. No evidence of abscess. May be secondary cellulitis. Will discharge home. Last Vital Signs Date Time Temp Pulse Resp B/P (MAP) Pulse Ox O2 Delivery O2 Flow Rate FiO2 07/02/19 03:52 97.5 83 19 163/90 (114) 97 Room Air Status: improved Disposition: HOME, SELF-CARE Condition: Stable Scripts Doxycycline Monohydrate* (DOXYCYCLINE MONOHYDRATE*) 100 Mg Capsule 100 MG ORAL Q12H, #14 CAP 0 Refills Prov: Misha Bernardo MD 07/02/19 Permethrin* (ELIMITE*) 60 Gm Cream..g. 1 APPLIC TOPIC ONCE, #60 GM 0 Refills Apply cream from head to toe; leave on for 8-14 hours before washing off with water; may reapply in 1 week if live mites appear. Prov: Misha Bernardo MD 07/02/19 Diphenhydramine Hcl* (BENADRYL*) 25 Mg Capsule 50 MG ORAL Q6H PRN for Itching, #30 CAP Prov: Misha Bernardo MD 07/02/19 Patient Instructions: Rash Additional Instructions: Follow-up with your doctor in 7 days but return if worse. Misha Bernardo MD Jul 02, 2019 04:11
[2019-07-02 04:30] VITALS: BP 163/90
--- NOTE | 2019-07-02 04:30 | NUR ---
ER Nurse Note: Pt is medically cleared to be discharged per ERMD. Discharge instructions and prescriptions given with repeat verbalization by pt. Emphazied pt follow up with [facility] within 3-5 days for further care. Pt is AOx4, VSS, on RA; no signs of acute distress. ID band removed. Pt is able to ambulate with steady gait. Pt took all belongings.
== END 2019-07-02 04:30 | disposition home or self-care (01) ==
LOC: EMR 04:15
DX: R21 Rash and other nonspecific skin eruption (principal); Z88.6 Allergy status to analgesic agent; F17.200 Nicotine dependence, unspecified, uncomplicated; I10 Essential (primary) hypertension
CPT/HCPCS: 99282

== ENCOUNTER 2020-04-12 21:04 | Emergency (ER) | payer MEDICARE ==
[~2020-04-12] VITALS: Ht 175.3 cm; Wt 68.0 kg
[~2020-04-12 21:04] MED LIST changes: +DOXYCYCLINE MO100 MG ORAL
--- NOTE | 2020-04-12 21:25 | NUR ---
ED Nurse Note: Pt ambulated to ED from home c/o 01/20 bladder pain since 1699. Pt has a hx of bladder stones, urine is burning and dark orange. Pt is A&OX4, denies fever at home, did have one episode of emisis. VSS. urine sent to lab
--- NOTE | 2020-04-12 21:28 | Emergency Room Report ---
History of Present Illness General Chief Complaint: Male Urogenital Problems Source: Patient Present Illness HPI 70-year-old male with a history of kidney stones here with lower abdominal pain. Patient says that he has "a huge stone in my bladder" that has been causing him discomfort for several weeks to months. Patient is scheduled to have a lithotripsy performed at [facility] on May 02 but says that the pain got so severe tonight that he could not wait prompting him to come to this hospital because it is down the street from his home. Pain is sharp in nature, located in his lower abdomen, occasionally radiates to his bilateral flanks. Has not taken any pain medication tonight. Denies fevers, chills, chest pain, palpitation, shortness of breath, diarrhea, dysuria. Has vomited once nonbilious nonbloody. 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 Nursing Documentation-PMH Hx Cardiac Problems: No Hx Hypertension: Yes Hx Pacemaker: No Hx Asthma: No Hx COPD: No Hx Diabetes: No Hx Cancer: No Hx Dialysis: No Hx Neurological Problems: No Hx Cerebrovascular Accident: No Hx Seizures: No Review of Systems All Other Systems: negative except mentioned in HPI Physical Exam Vital Signs Date Time Temp Pulse Resp B/P (MAP) Pulse Ox O2 Delivery O2 Flow Rate FiO2 04/12/20 21:04 98.4 107 22 132/90 (104) 98 Room Air Sp02 EP Interpretation: reviewed, normal General Appearance: alert, GCS 15, non-toxic, mild distress Head: normocephalic, atraumatic Eyes: bilateral eye normal inspection, bilateral eye PERRL ENT: hearing grossly normal, normal pharynx, no angioedema, normal voice Neck: full range of motion, supple/symm/no masses Respiratory: chest non-tender, lungs clear, normal breath sounds, speaking full sentences Cardiovascular #1: regular rate, rhythm, no edema Cardiovascular #2: 2+ carotid (R), 2+ carotid (L), 2+ radial (R), 2+ radial (L), 2+ dorsalis pedis (R), 2+ dorsalis pedis (L) Gastrointestinal: normal bowel sounds, soft, non-distended, no guarding, no rebound, other - Lower abdominal discomfort on palpation diffusely. No CVA tenderness. Negative Rovsing sign, negative Gibson sign Rectal: deferred Genitourinary: normal inspection, no CVA tenderness Musculoskeletal: back normal, normal range of motion, calf tenderness, gait/station normal, non-tender Neurologic: alert, motor strength/tone normal, oriented x3, sensory intact, responsive, speech normal Psychiatric: judgement/insight normal, memory normal, mood/affect normal, no suicidal/homicidal ideation Reflexes: 3+ bicep (R), 3+ bicep (L), 3+ tricep (R), 3+ tricep (L), 3+ knee (R), 3+ knee (L) Lymphatic: no adenopathy Medical Decision Making ER Course 70-year-old male with known kidney stones here with lower abdominal pain. Patient says "I have pain all the time, but it got much worse tonight." Urinalysis shows no signs of infection. Patient was given morphine and Zofran with good resolution of his pain. Given IV fluids. Patient has allergy to Toradol. Currently awaiting results of labs and CT scan. Signed out to oncoming physician Dr. Bernardo. Last Vital Signs Date Time Temp Pulse Resp B/P (MAP) Pulse Ox O2 Delivery O2 Flow Rate FiO2 04/12/20 21:04 98.4 107 22 132/90 (104) 98 Room Air Referrals: JULIA NGUYEN (PCP) Mark Cowan M.D. Apr 12, 2020 21:27
[2020-04-12 21:30] VITALS: BP 132/90
[2020-04-12] MEDS ORDERED: Morphine Sulfate 4mg/ml Inj (IV USE ONLY) IVP ONE (21:30)
[2020-04-12 21:44] LABS: APPEARANCE,URINE CLOUDY; BILIRUBIN, URINE NEGATIVE (NEGATIVE); COLOR,URINE RED; GLUCOSE, URINE (UA) 1+ (NEGATIVE); KETONES,URINE 1+ (NEGATIVE); LEUKOCYTE ESTERASE ,URINE 1+ (NEGATIVE); NITRITE,URINE NEGATIVE (NEGATIVE); PH,URINE 7 (4.5-8.0); PROTEIN,URINE 2+ (NEGATIVE); UROBILINOGEN,URINE NORMAL MG/DL (0.0-1.0)
--- NOTE | 2020-04-12 21:46 | NUR ---
ED Nurse Note: Pt to CT
[2020-04-12 22:03] LABS: BASOPHILS % (AUTO) 1.8 % (0.0-2.0); EOSINOPHILS % (AUTO) 5.8 % (0.0-3.0); HEMATOCRIT 41.5 % (42.0-52.0); HEMOGLOBIN 14.4 G/DL (14.2-18.0); LYMPHOCYTES % (AUTO) 24.6 % (20.0-45.0); MEAN CORPUSCULAR VOLUME 94 FL (80-99); MONOCYTES % (AUTO) 10.8 % (1.0-10.0); NEUTROPHILS % (AUTO) 56.9 % (45.0-75.0); RED BLOOD COUNT 4.41 M/UL (4.70-6.10); RED CELL DISTRIBUTION WIDTH 11.9 % (11.6-14.8); WHITE BLOOD COUNT 7.4 K/UL (4.8-10.8)
[2020-04-12 22:04] LABS: CALCIUM 8.6 MG/DL (8.5-10.1); CREATININE 1.4 MG/DL (0.55-1.30)
[2020-04-12 22:08] LABS: PLATELET COUNT 236 K/UL (150-450)
[2020-04-12 22:09] LABS: ALBUMIN 3.8 G/DL (3.4-5.0); ALBUMIN/GLOBULIN RATIO 1.2 (1.0-2.7); BILIRUBIN,TOTAL 0.9 MG/DL (0.2-1.0)
--- NOTE | 2020-04-12 22:47 | Diagnostic Imaging Report ---
CT abdomen pelvis without contrast History: Pain Technique: Axial noncontrast CT of the abdomen and pelvis with coronal, sagittal reformatted images. Technique more: CTDI is 4.7 mGy and DLP is 228.0 mGy-cm. Technique more: One or more of the following dose reduction techniques were used: automated exposure control, adjustment of the mA and/or kV according to patient size, use of iterative reconstruction technique. Comparison: MRI abdomen 11/23/2018, CT abdomen pelvis 11/22/2018 Findings: Lung bases: Small patchy peribronchial groundglass opacities in the left lung bases likely nonspecific mild bronchiolitis. Distal heart and esophagus: Small hiatal hernia. Liver: Contracted gallbladder. Mild prominence of the bile ducts is similar to prior exam. Spleen: Normal Pancreas: Normal Adrenals: Normal Kidneys: Stable bilateral renal cysts and increased but nonobstructive calcifications. Approximately 10 bilaterally. Negative for hydronephrosis. Aorta: Mild peripheral atherosclerotic calcification. Lymph nodes: Negative Bowel: Scattered colonic stool normal appendix. Sigmoid diverticulosis. Negative for diverticulitis. Pelvis: 7 mm dependent urinary bladder stones. Negative for pelvic free fluid or mass. Small fat containing left inguinal hernia stable. Previously seen on right inguinal hernia is reduced. Bones: Mild bilateral hip degenerative changes. Moderately severe right greater than left L5-S1, L4-5 facet arthropathy. Mild convex right curvature of the thoracolumbar spine. Lumbar spine degenerative changes. Impression: 1.
[2020-04-12 23:00] VITALS: BP 128/80
--- NOTE | 2020-04-12 23:00 | NUR ---
ER DISCHARGE NOTE: Patient is cleared to be discharged per ERMD, pt is aox4, on room air, with stable vital signs. pt was given dc instructions, pt was able to verbalize understanding, pt id band and iv site removed without complications. pt is able to ambulate with steady gait. pt took all belongings.
== END 2020-04-12 23:00 | disposition home or self-care (01) ==
LOC: EMR 21:19
DX: N23 Unspecified renal colic (principal); M12.9 Arthropathy, unspecified; G89.29 Other chronic pain; Z86.73 Personal history of transient ischemic attack (TIA), and cerebral infarction without residual deficits; I10 Essential (primary) hypertension; Z88.8 Allergy status to other drugs, medicaments and biological substances; Z88.6 Allergy status to analgesic agent; K44.9 Diaphragmatic hernia without obstruction or gangrene; K57.90 Diverticulosis of intestine, part unspecified, without perforation or abscess without bleeding; K40.90 Unilateral inguinal hernia, without obstruction or gangrene, not specified as recurrent; F11.20 Opioid dependence, uncomplicated; N21.0 Calculus in bladder; N28.1 Cyst of kidney, acquired
CPT/HCPCS: 36415; 74176; 80053; 81003; 83690; 85025; 96361; 96374; 96375; 99284; J2270; J2405; J7030